=== PATIENT | female | born 1970 | race Caucasian/White ===

== ENCOUNTER → 2016-08-28 | Outpatient (CLI) | payer OTHER ==
--- NOTE | 2016-08-28 10:56 | REPMRS ---
Patient History The patient states she has not had a clinical breast exam in over a year. Patient is postmenopausal. Family history of breast cancer in maternal grandmother at age 50 and breast cancer in paternal grandmother at age 40. Taking estrogen for 12 years. Digital Mammo Screening Bilat: August 28, 2016 - Exam #: [id number] Bilateral CC and MLO view(s) were taken. Technologist: Neyda Lemus Technologist Prior study comparison: August 11, 2013, digital mammo diagnostic bilateral performed at [facility]. August 18, 2011, digital mammo diagnostic bilateral, performed at [facility] ([facility]). FINDINGS: There are scattered fibroglandular densities. There has been no change in the appearance of the mammogram from the prior studies. There is a mild amount of scattered fibroglandular density which is fairly symmetric. There is no interval development of dominant mass, architectural distortion, or clustered microcalcification suggestive of malignancy. ASSESSMENT: BI-RADS/ACR category 1 mammogram. Negative. Recommendation Routine screening mammogram in 1 year (for women over age 40). This mammogram was interpreted with the aid of an FDA-approved computer-aided dectection system. Electronically Signed By: Siva Kent MD 08/28/16 [id number]
== END ==
LOC: M RAD 09:52
PROVIDERS: ATTEND Obstetrics & Gynecology
DX: Z12.31 Encounter for screening mammogram for malignant neoplasm of breast (principal)

== ENCOUNTER → 2017-05-31 | Outpatient (CLI) | payer OTHER ==
[~2017-05-31] MED LIST: PROHANCE 279.3MG/ML 15ML VIAL (A9576) As Ordered ONE
--- NOTE | 2017-06-04 17:24 | REP ---
MRI ABDOMEN WITH AND WITHOUT CONTRAST: TECHNIQUE: Multiple sequences obtained prior to and following the intravenous administration of 12 mL of gadolinium. COMPARISON: Made with prior MRI from [facility] 01/08/2014. The liver demonstrates a cyst in the anterior right lobe which has mildly increased in size compared to the prior study, measuring approximately 1.1 cm in maximum diameter, previous approximately 7 mm. This demonstrates homogenous T2 hyperintense signal and there is no enhancement. There are several other subcentimeter T2 hyperintensities scattered in the right and left lobes likely representing tiny cysts. There is a hyperintense nodule in the medial right lobe of the liver measuring about 8 mm, unchanged since prior exam. This again demonstrates enhancement characteristics compatible with hemangioma. No other no liver lesions are seen. The spleen is normal in size with no intrinsic abnormality. The adrenals and pancreas are normal. There is no pancreatic duct dilatation. There are bilateral renal cysts again seen which are hypointense on T1 and uniformly hyperintense on T2. The largest cyst in the right kidney is in the mid aspect demonstrating no significant enhancement. It measures 1.5 cm in maximum diameter, essentially unchanged. A dominant cyst in the upper pole of the left kidney measures approximately 3.7 cm in maximum diameter, also unchanged. A cyst in the mid-left kidney measures 1.8 cm in maximum diameter, mildly increased in size since prior study when it measured about 1.4 cm. There appear to be other smaller left renal cysts as well, similar to the prior exam. I see no adenopathy. There is no free fluid. There is no biliary dilatation. The gallbladder is not well distended and not well evaluated. IMPRESSION: There are benign lesions again seen in the liver with multiple cysts and a single hemangioma as discussed in detail above. The kidneys again demonstrate bilateral cysts. No suspicious lesions or adenopathy in the abdomen. Signed by Aroldo Omalley MD 06/04/2017 05:54 P
== END ==
LOC: M RAD 13:20
PROVIDERS: ATTEND Family Medicine
DX: K76.9 Liver disease, unspecified (principal)
CPT/HCPCS: 74183; A9576

== ENCOUNTER → 2017-12-31 | Outpatient (REF) | payer OTHER ==
[2017-12-31 13:34] LABS: APPEARANCE, URINE HAZY (CLEAR); BACTERIA, URINE AUTO NEGATIVE (NEGATIVE); BILIRUBIN, URINE AUTO NEGATIVE (NEGATIVE); BLOOD, URINE BLOOD NEGATIVE (NEGATIVE); COLOR, URINE YELLOW (YELLOW); GLUCOSE, URINE (UA) AUTO NEGATIVE (NEGATIVE); KETONE, URINE AUTO NEGATIVE (NEGATIVE); LEUKOCYTE ESTERASE, URINE AUTO NEGATIVE (NEGATIVE); NITRITE, URINE AUTO NEGATIVE (NEGATIVE); PROTEIN, URINE AUTO NEGATIVE (NEGATIVE); RBC, URINE AUTO 1 /HPF (0-3); SPECIFIC GRAVITY URINE AUTO 1.005 (1.002-1.035); SQUAMOUS EPITHELIAL CELL UR AU 10 /HPF (0-6); UROBILINOGEN, URINE AUTO 0.2 mg/dL (0.0-2.0); WBC, URINE AUTO 1 /HPF (0-3)
== END ==
LOC: M SMT 13:13
DX: Q61.00 Congenital renal cyst, unspecified (principal)
CPT/HCPCS: 81001

== ENCOUNTER → 2018-01-05 | Outpatient (CLI) | payer OTHER | LOC: M RAD 18:00 | DX: N28.1 Cyst of kidney, acquired (principal) ==

== ENCOUNTER → 2018-10-13 | Outpatient (REF) | payer OTHER ==
[2018-10-13 17:16] LABS: BLOOD UREA NITROGEN 10 MG/DL (7-18); CALCIUM LEVEL 8.6 MG/DL (8.5-10.1); CARBON DIOXIDE LEVEL 28 MEQ/L (21-32); CHLORIDE LEVEL 105 MEQ/L (98-107); CREATININE FOR GFR 0.76 MG/DL (0.55-1.30); GLOMERULAR FILTRATION RATE > 60.0 (>58); GLUCOSE, FASTING 82 MG/DL (70-100); POTASSIUM SERUM 4.8 MEQ/L (3.5-5.1); SODIUM LEVEL 140 MEQ/L (136-145)
[2018-10-13 17:32] LABS: BASO # 0.1 10^3/uL (0.0-0.2); BASO % 0.5 % (0.0-1.0); EOS # 0.3 10^3/uL (0.0-0.50); EOS % 1.8 % (0.0-3.0); HEMATOCRIT 41.5 % (36.0-47.0); HEMOGLOBIN 13.9 g/dl (12.0-15.5); LYMPH # 2.1 10^3/uL (1.5-4.5); MEAN CORPUSCULAR HEMOGLOBIN 31.2 pg (27.0-33.0); MEAN CORPUSCULAR HGB CONC 33.5 g/dl (32.0-36.5); MONO # 0.9 10^3/uL (0.0-0.8); MONO % 6.7 % (0.0-5.0); NEUTROPHILS # 10.5 10^3/uL (1.8-7.7); NEUTROPHILS % 75.6 % (36.0-66.0); PLATELET COUNT, AUTOMATED 283 10^3/uL (150-450); RED BLOOD COUNT 4.46 10^6/uL (4.00-5.40); WHITE BLOOD COUNT 13.9 10^3/uL (4.0-10.0)
== END ==
LOC: M SFHCCLAY 10:48
PROVIDERS: ATTEND Nurse Practitioner Family
DX: J03.90 Acute tonsillitis, unspecified (principal)

== ENCOUNTER 2019-02-06 18:52 | Inpatient (IN) | payer OTHER ==
[~2019-02-06] VITALS: Ht 160 cm; Wt 58.7 kg
[2019-02-06 19:36] LABS: BASO # 0.1 10^3/uL (0.0-0.2); BASO % 0.5 % (0.0-1.0); EOS # 0.3 10^3/uL (0.0-0.50); EOS % 2.1 % (0.0-3.0); HEMATOCRIT 44.2 % (36.0-47.0); HEMOGLOBIN 14.6 g/dl (12.0-15.5); LYMPH # 2.1 10^3/uL (1.5-4.5); LYMPH % 16.7 % (24.0-44.0); MEAN CORPUSCULAR VOLUME 93.8 fl (80.0-96.0); MONO # 0.7 10^3/uL (0.0-0.8); MONO % 5.4 % (0.0-5.0); NEUTROPHILS # 9.4 10^3/uL (1.8-7.7); PLATELET COUNT, AUTOMATED 279 10^3/uL (150-450); RED BLOOD COUNT 4.71 10^6/uL (4.00-5.40); WHITE BLOOD COUNT 12.6 10^3/uL (4.0-10.0)
[2019-02-06 19:53] LABS: HCG, SERUM QUALITATIVE NEGATIVE (NEGATIVE)
[2019-02-06 20:00] LABS: ALBUMIN 3.8 GM/DL (3.2-5.2); ALT/SGPT 21 U/L (12-78); BILIRUBIN,DIRECT 0.1 MG/DL (0.0-0.2); BILIRUBIN,TOTAL 0.4 MG/DL (0.2-1.0); BLOOD UREA NITROGEN 9 MG/DL (7-18); CALCIUM LEVEL 9.1 MG/DL (8.5-10.1); CARBON DIOXIDE LEVEL 29 MEQ/L (21-32); CHLORIDE LEVEL 104 MEQ/L (98-107); CREATININE FOR GFR 0.85 MG/DL (0.55-1.30); GLOMERULAR FILTRATION RATE > 60.0 (>58); GLUCOSE, FASTING 92 MG/DL (70-100); LIPASE 153 U/L (73-393); POTASSIUM SERUM 4.1 MEQ/L (3.5-5.1); SODIUM LEVEL 138 MEQ/L (136-145); TOTAL PROTEIN 7.2 GM/DL (6.4-8.2)
[2019-02-06] MEDS ORDERED: KETOROLAC 30 MG/ML VIAL (J1885) IV ONE (20:45)
[2019-02-06] MEDS ORDERED: ONDANSETRON 4MG/2ML VIAL (J2405) IV ONE (21:00)
--- NOTE | 2019-02-06 22:42 | REPVR ---
EXAM: CT Abdomen and Pelvis Without Contrast EXAM DATE/TIME: 02/06/2019 9:28 PM CLINICAL HISTORY: 48 years old, female; Abdominal pain; Generalized; Prior surgery; Additional info: Elevated wbc, hematuria, positive cali's, abd pain TECHNIQUE: Imaging protocol: Axial computed tomography images of the abdomen and pelvis without contrast. Coronal and sagittal reformatted images were created and reviewed. Radiation optimization: All CT scans at this facility use at least one of these dose optimization techniques: automated exposure control; mA and/or kV adjustment per patient size (includes targeted exams where dose is matched to clinical indication); or iterative reconstruction. COMPARISON: RENAL US 01/05/2018 5:23 PM FINDINGS: Liver: Previously described multiple small cysts in the liver are not well identified on today's exam. Indeterminate lesions in the right of the liver, largest one is measuring approximately 14 mm. Gallbladder and bile ducts: Normal. No calcified stones. No ductal dilation. Pancreas: Normal. No ductal dilation. Spleen: Normal. No splenomegaly. Adrenals: Normal. No mass. Kidneys and ureters: Complex he or on the left kidney with peripheral calcification in measuring approximately 3.7 x 3.3 0.5 cm. Multiple nonobstructing stones in the left kidney measuring up to 3 mm. Scarring in the midpole of the left kidney. Small cysts in the lower pole of the left kidney with minimal peripheral calcification measuring 13 mm. Another lesion in the lower pole of the left kidney measuring 14.4 x 15.2 mm with mild peripheral calcification. Multiple cystic structures are seen in the right kidney measuring up to 17 mm. Stomach and bowel: There is thickening of the proximal transverse colon at the hepatic flexure which appears to be applecore lession causing obstruction and dilatation of the cecum and ascending colon with large fecal loading. Haziness surrounding the proximal process colon with multiple small lymph nodes. Findings are concerning for neoplastic process, possible superimposed infection, further evaluation with colonoscopy is recommended. Small bowel is unremarkable. Appendix: No evidence of appendicitis. Intraperitoneal space: Normal. No free air. No significant fluid collection. Vasculature: Normal. No abdominal aortic aneurysm. Lymph nodes: See Stomach And Bowel Finding. Bladder: Unremarkable as visualized. Reproductive: Status post hysterectomy. Bones/joints: Demineralization of the bones. No lytic or sclerotic lesion. Soft tissues: Unremarkable. IMPRESSION: There is thickening of the proximal transverse colon at the hepatic flexure which appears to be applecore lession causing obstruction and dilatation of the cecum and ascending colon with large fecal loading. Haziness surrounding the proximal process colon with multiple small lymph nodes. Findings are concerning for neoplastic process, possible superimposed infection, further evaluation with colonoscopy is recommended. Small bowel is unremarkable. Previously described multiple small cysts in the liver are not well identified on today's exam. Indeterminate lesions in the right of the liver, largest one is measuring approximately 14 mm. followup with hepatic protocol MR examination is recommended to rule out metastatic disease. Complex cysts in bilateral kidneys. COMMENT: Consistent with the [employer]'s Incidental Findings Committee Report (J Am Saran Radiol 2010): Unless the patient's specific circumstances suggest otherwise, any liver lesion 0.5 cm or less, any cystic kidney lesion less than 1.0 cm, and/or any adrenal lesion 1.0 cm or less not otherwise characterized in this report as possessing suspicious or indeterminate imaging features is/are highly likely to be benign and do not require follow-up imaging or biopsy. Electronically signed by: Bryanna Kay On 02/06/2019 22:42:14 PM
[2019-02-06] MEDS ORDERED: MORPHINE 2 MG/ML 1ML SYRINGE (J2270) IV ONE (23:00)
[2019-02-06] MEDS ORDERED: NS 1,000 ML IV ONE (23:15)
[2019-02-07] MEDS ORDERED: MORPHINE 4 MG/ML 1ML VIAL/SYRINGE (J2270) IV PRN (00:15)
[2019-02-07] MEDS ORDERED: MOM 30ML SUSPENSION UDC PO ONE ×2 (00:15→03:00)
--- NOTE | 2019-02-07 00:33 | HPEPDOC ---
General Date of Admission 02/07/2019 Date of Service: Feb 07, 2019 Attending Physician: ROSALINDA JOSE MD Chief Complaint The patient is a 48-year-old female admitted with a reason for visit of Jose Schreiber in. History of Present Illness Patient is a 48-year-old female, primary medical history significant for liver hemangioma, renal cysts, nicotine dependence, presenting to the emergency room on account of abdominal pain. Onset of symptoms was this morning. Initially pain felt like gas and so patient tried to walk it off, and also took some Gas-X and enema without relief. Given that she used the bathroom and had a bowel movement this morning patient felt like she still had a large amount of stool trapped in her abdomen. On assessment in emergency room, CT scan of abdomen and pelvis was completed without contrast and showed thickening of proximal transverse colon at the he patic flexure which looked like an apple core lesion causing obstruction and dilatation of cecum and ascending colon with large fecal loading. There was haziness surrounding the proximal process with multiple small lymph nodes. Findings were concerning for neoplastic process with possible superimposed infection. Further recommendation evaluation with colonoscopy was recommended. A call was placed to general surgery who recommended placing patient on a clear liquid diet, and consulting their team so they could see patient in consult. At time of assessment pain was still present. Described as spasm pain, intermittent like a wave of excruciating pain. She denied chills, fever. She did have some nausea with no vomiting Home Medications Scheduled PRN Ibuprofen (Ibuprofen) 800 Mg Tablet, 800 MG PO Q6H PRN for PAIN, (Reported) Triamcinolone Acet (Triamcinolone Acetonide 0.1% Crm) 80 Gm Cream..g., 1 DOSE TOP BID PRN for HIVES/BLISTERS, (Reported) USES ON HANDS/ARMS NEEDED WHEN HIVES/BLISTERS APPEAR FROM TOO MUCH SUNLIGHT Allergies Coded Allergies: SEAFOOD (Verified Allergy, Unknown, 02/06/19) latex (Verified Allergy, Unknown, 02/06/19) Past Medical History Medical History Kidney stones. Renal cysts. Nicotine dependence Liver hemangioma Surgical History Appendectomy Hysterectomy Family History Father: Prostate cancer Mother: Hypertension, hyperlipidemia Social History Smokes half a pack of cigarettes a day, occasional alcohol intake, denies polysubstance abuse A-FIB/CHADSVASC A-FIB History Current/History of A-Fib/PAF?: No Current PO Anticoag Therapy: No Review of Systems Other systems A 10 point pertinent review of systems was completed, negative except as stated in the history of presenting illness. Physical Examination Other physical findings GENERAL: NAD SKIN : Warm, dry intact HEENT: Atraumatic, normocephalic, PERRL, moist mucous membrane CARDIOVASCULAR: Regular rate and rhythm, S1S2, no JVD, no edema, distal pulses + and palpable RESP: CTAB, no accessory muscle use noted ABDOMEN: BS+ mildly distended, +tender MS: no joint deformities NEURO: Alert and oriented x 3, CN2-12 grossly intact PSYCH: no anxiety or agitation, appropriate mood and affect. Vital Signs Vital Signs Date Time Temp Pulse Resp B/P (MAP) Pulse Ox O2 Delivery O2 Flow Rate FiO2 02/06/19 23:14 16 96 02/06/19 22:07 97.5 77 119/76 (90) Room Air Laboratory Data Labs 24H Laboratory Tests 2 02/06/19 19:28: Immature Granulocyte % (Auto) 0.3, White Blood Count 12.6H, Red Blood Count 4.71, Hemoglobin 14.6, Hematocrit 44.2, Mean Corpuscular Volume 93.8, Mean Corpuscular Hemoglobin 31.0, Mean Corpuscular Hemoglobin Concent 33.0, Red Cell Distribution Width 12.3, Platelet Count 279, Neutrophils (%) (Auto) 75.0H, Lymphocytes (%) (Auto) 16.7L, Monocytes (%) (Auto) 5.4H, Eosinophils (%) (Auto) 2.1, Basophils (%) (Auto) 0.5, Neutrophils # (Auto) 9.4H, Lymphocytes # (Auto) 2 .1, Monocytes # (Auto) 0.7, Eosinophils # (Auto) 0.3, Basophils # (Auto) 0.1, Nucleated Red Blood Cells % (auto) 0.0, Anion Gap 5L, Glomerular Filtration Rate > 60.0, Calcium Level 9.1, Aspartate Amino Transf (AST/SGOT) 23, Alanine Aminotransferase (ALT/SGPT) 21, Alkaline Phosphatase 73, Total Bilirubin 0.4, Direct Bilirubin 0.1, Total Protein 7.2, Albumin 3.8, Albumin/Globulin Ratio 1.12, Lipase 153, Human Chorionic Gonadotropin, Qual NEGATIVE 02/06/19 19:32: Urine Color YELLOW, Urine Appearance CLEAR, Urine pH 6.0, Urine Specific [place] 1.016, Urine Protein NEGATIVE, Urine Glucose (UA) NEGATIVE, Urine Ketones TRACEH, Urine Blood 1+H, Urine Nitrite NEGATIVE, Urine Bilirubin NEGATIVE, Urine Urobilinogen 0.2, Urine Leukocyte Esterase NEGATIVE, Urine WBC (Auto) 0, Urine RBC (Auto) 8H, Urine Hyaline Casts (Auto) 0, Urine Bacteria (Auto) 1+H, Urine Squamous Epithelial Cells 2, Urine Mucus (Auto) SMALL, Urine Sperm (Auto) CBC/BMP Laboratory Tests 02/06/19 19:28 Red Blood Count 4.71, Mean Corpuscular Volume 93.8, Mean Corpuscular Hemoglobin 31.0, Mean Corpuscular Hemoglobin Concent 33.0, Red Cell Distribution Width 12.3, Neutrophils (%) (Auto) 75.0 H, Lymphocytes (%) (Auto) 16.7 L, Monocytes (%) (Auto) 5.4 H, Eosinophils (%) (Auto) 2.1, Basophils (%) (Auto) 0.5, Neutrophils # (Auto) 9.4 H, Lymphocytes # (Auto) 2.1, Monocytes # (Auto) 0.7, Eosinophils # (Auto) 0.3, Basophils # (Auto) 0.1 Assessment/Plan Colonic Obstruction -with possible infectious process, large fecal loading, applecore lesion concerning for possible neoplastic process -General surgical team has been consulted and evaluation and input -. Keep patient nothing by mouth at this time with normal saline fluids -CT findings discussed with patient Liver hemangioma -concerning CT abnormal findings for possible neoplastic process -General surgery consulted, will need to be called in the am Nicotine dependence -Patient has been counselled about tobacco use DVT prophylaxis -Lovenox daily Patient seen and examined at this time, this is a 48-year-old female with a one day history of right upper quadrant abdominal pain: Acute in nature. She tells me that she has not had this before CT scan finding reveals a palpable cord lesion. As well as liver lesions. She is known about her liver hemangiomas for quite some time. She does not provide a history consistent with occult malignancy. General surgery consult placed will provide her with a clear liquid diet milk of magnesia for possible constipation I'll also add Senokot S. Should this fail to improve her symptoms could consider inpatient colonoscopy for further evaluation. Patient admitted to [facility] / VTE VTE Prophylaxis Ordered?: Yes JARROD EASTMAN Feb 07, 2019 00:33 ROSALINDA JOSE MD Feb 07, 2019 03:44
[2019-02-07] MEDS ORDERED: TRIA1CR80 TOP (00:43)
[2019-02-07] MEDS ORDERED: IBUP80TA PO (00:43)
[2019-02-07] MEDS ORDERED: ERTAPENEM SODIUM 1 GM in NS MINI-BAG PLUS 50 ML IV ONE (00:45)
[2019-02-07] MEDS: NS 1,000 ML IV SCH ×3 (01:10→18:47)
[2019-02-07 02:04] VITALS: BP 120/70
[2019-02-07] MEDS: MORPHINE 4 MG/ML 1ML VIAL/SYRINGE (J2270) IV PRN ×8 (02:57→22:11)
[2019-02-07 06:00] VITALS: BP 95/58
[2019-02-07 06:07] LABS: HEMATOCRIT 39.7 % (36.0-47.0); HEMOGLOBIN 12.9 g/dl (12.0-15.5); MEAN CORPUSCULAR HEMOGLOBIN 30.7 pg (27.0-33.0); MEAN CORPUSCULAR HGB CONC 32.5 g/dl (32.0-36.5); MEAN CORPUSCULAR VOLUME 94.5 fl (80.0-96.0); PLATELET COUNT, AUTOMATED 236 10^3/uL (150-450); WHITE BLOOD COUNT 9.5 10^3/uL (4.0-10.0)
[2019-02-07 06:43] LABS: BLOOD UREA NITROGEN 12 MG/DL (7-18); CALCIUM LEVEL 7.5 MG/DL (8.5-10.1); CARBON DIOXIDE LEVEL 27 MEQ/L (21-32); CHLORIDE LEVEL 108 MEQ/L (98-107); CREATININE FOR GFR 0.72 MG/DL (0.55-1.30); GLOMERULAR FILTRATION RATE > 60.0 (>58); GLUCOSE, FASTING 86 MG/DL (70-100); POTASSIUM SERUM 3.7 MEQ/L (3.5-5.1); SODIUM LEVEL 141 MEQ/L (136-145)
[2019-02-07] MEDS ORDERED: MAGNESIUM CITRATE 300 ML BTL PO ONE (08:30)
[2019-02-07] MEDS: SENOKOT S TAB PO SCH ×2 (08:37→21:00)
[2019-02-07] MEDS: ENOXAPARIN 40 MG/0.4 ML SYRINGE (J1650) SC SCH (08:37)
[2019-02-07] MEDS: MOM 30ML SUSPENSION UDC PO SCH ×2 (08:37→21:00)
[2019-02-07] MEDS: ONDANSETRON 4MG/2ML VIAL (J2405) IV PRN ×4 (08:44→23:11)
[2019-02-07] MEDS ORDERED: SENOKOT S TAB PO SCH (09:00)
[2019-02-07 10:00] VITALS: BP 110/70
--- NOTE | 2019-02-07 11:17 | IPNPDOC ---
Subjective Date Seen The patient was seen on 02/07/19. Subjective Chief Complaint/HPI No BM yet. No furterh vomitng. Pain still present but fairly well controlled on Morphine Constitutional: Denies: Chills, Fever Pulmonary: Denies: Dyspnea, Cough Cardiovascular: Denies: Chest Pain, Palpitations Gastrointestinal: Reports: Nausea, Vomiting, Abdominal Pain, Constipation; Denies: Diarrhea Objective Physical Examination General Exam: Positive: Alert, No Acute Distress Chest Exam: Positive: Clear to auscultation, Normal air movement Heart Exam: Positive: Rate Normal, Regular Rhythm Abdomen Exam: Positive: BS Hyperactive, Tenderness (diffusely) Assessment /Plan Assessment Patient seen in the afternoon. She had further abdominal discomfort, though she did move her bowels once today. NG tube had been placed and was about to be placed on suction. She had some nausea, improved on medication, and a sore throat from NG tube that I ordered Chloraseptic spray for. Appreciate surgery's input. -- CDT Problems (1) Colonic obstruction Status: Acute Problem Text: Dr. Silver has seen her in consultation Blow bowel prep ordered with hope to perform colonoscopy tomorrow to evaluate ?apple-core lesion in colon Cont Morphine for pain zofran prn IVF (2) Liver lesion Status: Acute Problem Text: will need further wkup depending on results of colonoscopy (3) Abdominal pain Plan/VTE VTE Prophylaxis Ordered?: Yes (Lovenox) VS, I&O, 24H, Fishbone Vital Signs/I&O Vital Signs Date Time Temp Pulse Resp B/P (MAP) Pulse Ox O2 Delivery O2 Flow Rate FiO2 02/07/19 10:37 16 02/07/19 06:00 98.1 67 95/58 (70) 95 02/07/19 01:45 Room Air I&O- Last 24 Hours up to 6 AM 02/07/19 06:00 Intake Total 500 ml Output Total 150 ml Balance 350 ml Laboratory Data 24H LABS Laboratory Tests 2 02/06/19 19:28: Immature Granulocyte % (Auto) 0.3, White Blood Count 12.6H, Red Blood Count 4.71, Hemoglobin 14.6, Hematocrit 44.2, Mean Corpuscular Volume 93.8, Mean Corpuscular Hemoglobin 31.0, Mean Corpuscular Hemoglobin Concent 33.0, Red Cell Distribution Width 12.3, Platelet Count 279, Neutrophils (%) (Auto) 75.0H, Lymphocytes (%) (Auto) 16.7L, Monocytes (%) (Auto) 5.4H, Eosinophils (%) (Auto) 2.1, Basophils (%) (Auto) 0.5, Neutrophils # (Auto) 9.4H, Lymphocytes # (Auto) 2.1, Monocytes # (Auto) 0.7, Eosinophils # (Auto) 0.3, Basophils # (Auto) 0.1, Nucleated Red Blood Cells % (auto) 0.0, Anion Gap 5L, Glomerular Filtration Rate > 60.0, Calcium Level 9.1, Aspartate Amino Transf (AST/SGOT) 23, Alanine Aminotransferase (ALT/SGPT) 21, Alkaline Phosphatase 73, Total Bilirubin 0.4, Direct Bilirubin 0.1, Total Protein 7.2, Albumin 3.8, Albumin/Globulin Ratio 1.12, Lipase 153, Human Chorionic Gonadotropin, Qual NEGATIVE 02/06/19 19:32: Urine Color YELLOW, Urine Appearance CLEAR, Urine pH 6.0, Urine Specific [place] 1.016, Urine Protein NEGATIVE, Urine Glucose (UA) NEGATIVE, Urine Ketones TRACEH, Urine Blood 1+H, Urine Nitrite NEGATIVE, Urine Bilirubin NEGATIVE, Urine Urobilinogen 0.2, Urine Leukocyte Esterase NEGATIVE, Urine WBC (Auto) 0, Urine RBC (Auto) 8H, Urine Hyaline Casts (Auto) 0, Urine Bacteria (Auto) 1+H, Urine Squamous Epithelial Cells 2, Urine Mucus (Auto) SMALL, Urine Sperm (Auto) 02/07/19 05:31: Nucleated Red Blood Cells % (auto) 0.0, Anion Gap 6L, Glomerular Filtration Rate > 60.0, Calcium Level 7.5#L, Blood Urea Nitrogen 12, Creatinine 0.72, Sodium Level 141, Potassium Level 3.7, Chloride Level 108H, Carbon Dioxide Level 27 CBC/BMP Laboratory Tests 02/06/19 19:28 Red Blood Count 4.71, Mean Corpuscular Volume 93.8, Mean Corpuscular Hemoglobin 31.0, Mean Corpuscular Hemoglobin Concent 33.0, Red Cell Distribution Width 12.3, Neutrophils (%) (Auto) 75.0 H, Lymphocytes (%) (Auto) 16.7 L, Monocytes (%) (Auto) 5.4 H, Eosinophils (%) (Auto) 2.1, Basophils (%) (Auto) 0.5, Neutrophils # (Auto) 9.4 H, Lymphocytes # (Auto) 2.1, Monocytes # (Auto) 0.7, Eosinophils # (Auto) 0.3, Basophils # (Auto) 0.1 02/07/19 05:31 Red Blood Count 4.20, Mean Corpuscular Volume 94.5, Mean Corpuscular Hemoglobin 30.7, Mean Corpuscular Hemoglobin Concent 32.5, Red Cell Distribution Width 12.3, Calcium Level 7.5 NILAM CURTIS PA-C Feb 07, 2019 11:17 NORBERT RODRÍGUEZ DO Feb 07, 2019 23:53
[2019-02-07] MEDS: SIMETHICONE 80 MG CHEW TAB PO PRN (13:58)
[2019-02-07] MEDS: BISACODYL 10 MG SUPP PR PRN (13:58)
[2019-02-07 14:00] VITALS: BP 131/79
--- NOTE | 2019-02-07 14:49 | CR ---
DATE OF CONSULTATION: 02/07/2019 REASON FOR CONSULTATION: Abdominal pain. HISTORY OF PRESENT ILLNESS: Patient is a 48-year-old female who presented to the emergency room (ER) with increasing abdominal pains and bloating. The pain started yesterday morning and got progressive worse throughout the day with some nausea and abdominal distention. She came in to the emergency room for evaluation and has a slight elevated white count and CT showing proximal transverse colon narrowing causing some obstruction of stool with distension of her cecum and ascending colon. She denies having any symptoms like this in the past. She has had normal bowel movements at least once a day. She has had about a 20 pound weight loss over the past 2 months along with some night sweats, but no other significant complaints. No blood in her stool. No changes in bowel movements. No other abdominal pains prior to this. No abdominal distension prior to this. No family history of colon cancer or diseases and no prior colonoscopy. Today she is still slightly distended and still having significant pain. Her white count is back to normal. She as been given some suppositories and Milk of Magnesia and has not had any bowel movements since admission. PAST MEDICAL HISTORY: Kidney stones, renal cysts, tobacco abuse, liver hemangioma. PAST SURGICAL HISTORY: Appendectomy, hysterectomy, C section. FAMILY HISTORY: Noncontributory. ALLERGIES: SEAFOOD and LATEX. HOME MEDICATIONS: Please see medical record. SOCIAL HISTORY: Smokes half a pack a day. Occasional alcohol. No drug abuse. REVIEW OF SYSTEMS: Pertinent positives and negatives as stated in the history of present illness. PHYSICAL EXAMINATION: General: Alert and oriented times three. In no acute distress. Vital signs: Temperature 97.8, pulse 69, respiration 18, blood pressure 110/70, pulse ox 94% on room air. HEENT: Pupils equal, round, and reactive to light and accommodation. Heart: S1, S2, regular rate and rhythm. Lungs: Clear to auscultation bilaterally. Abdomen: Soft, distended, slight tenderness diffusely mainly in the right thigh. No rebounding or rigidity. Extremities: No clubbing, cyanosis or edema. LABS: White count 12.6 on admission, down to 9.5, hemoglobin 12.9, platelets 236, potassium 3.7, creatinine 0.72. IMAGING: CT abdomen and pelvis was obtained and shows thickening of the proximal transverse colon of the hepatic flexure with an apple core lesion causing obscuration and dilatation of the cecum and ascending colon with large fecal loading. There is haziness surrounding the proximal colon with multiple small lymph nodes concerning for a neoplastic process, possibly a superimposed infection on top of that, colonoscopy is recommended. ASSESSMENT AND PLAN: Patient is a 48-year-old female with an obstructing lesion in the proximal transverse colon concerning for neoplastic process slightly with some surrounding inflammation and infection. Recommendation at this time is to proceed with gentle bowel prep with attempts to not perforate the cecum. As long as she can tolerate a gentle bowel prep, we will slowly increase the prep until she is prepped completely and then plan for a colonoscopy. If colonoscopy is successful and I am able to find a lesion and pass through it then we will discharge her home on a liquid diet and plan for an elective outpatient surgery within the next week, however, if the lesion is significantly obstructing then she will likely need surgery during this admission. Thank you for this consult.
[2019-02-07] MEDS: METOCLOPRAMIDE INJ 10MG/2ML VIAL (J2765) IV SCH ×2 (15:10→22:10)
--- NOTE | 2019-02-07 16:03 | REP ---
Clinical: Verify nasogastric tube placement . Comparison: None . Findings: Nasogastric tube identified extending into the left upper quadrant in satisfactory position. The mediastinum and cardiac silhouette are stable and within normal limits for portable technique. The lung bernardo are clear without acute consolidation, effusion, or pneumothorax. Skeletal structures are intact. Impression: No acute cardiopulmonary process appreciated. Nasogastric tube in satisfactory position. Electronically Signed by Cesar Davalos MD 02/07/2019 03:55 P
[2019-02-07] MEDS ORDERED: CHLORASEPTIC SPRAY MT PRN (16:45)
[2019-02-07 18:00] VITALS: BP 136/75
[2019-02-07 22:00] VITALS: BP 135/74
[2019-02-08] MEDS: MORPHINE 4 MG/ML 1ML VIAL/SYRINGE (J2270) IV PRN ×9 (01:29→23:48)
[2019-02-08] MEDS: BISACODYL 10 MG SUPP PR PRN ×2 (01:29→03:12)
[2019-02-08 02:00] VITALS: BP 125/72
[2019-02-08] MEDS: METOCLOPRAMIDE INJ 10MG/2ML VIAL (J2765) IV SCH ×4 (03:12→20:24)
[2019-02-08] MEDS: NS 1,000 ML IV SCH ×3 (04:38→23:47)
[2019-02-08 06:00] VITALS: BP 114/73
[2019-02-08 06:11] LABS: HEMOGLOBIN 12.8 g/dl (12.0-15.5); MEAN CORPUSCULAR HEMOGLOBIN 30.6 pg (27.0-33.0); MEAN CORPUSCULAR VOLUME 95.7 fl (80.0-96.0); PLATELET COUNT, AUTOMATED 239 10^3/uL (150-450); RED BLOOD COUNT 4.18 10^6/uL (4.00-5.40); WHITE BLOOD COUNT 10.1 10^3/uL (4.0-10.0)
[2019-02-08 06:40] LABS: ALBUMIN 2.9 GM/DL (3.2-5.2); ALT/SGPT 16 U/L (12-78); BILIRUBIN,TOTAL 0.4 MG/DL (0.2-1.0); BLOOD UREA NITROGEN 14 MG/DL (7-18); CALCIUM LEVEL 6.9 MG/DL (8.5-10.1); CARBON DIOXIDE LEVEL 22 MEQ/L (21-32); CHLORIDE LEVEL 109 MEQ/L (98-107); CREATININE FOR GFR 0.68 MG/DL (0.55-1.30); GLOMERULAR FILTRATION RATE > 60.0 (>58); GLUCOSE, FASTING 78 MG/DL (70-100); POTASSIUM SERUM 3.9 MEQ/L (3.5-5.1); SODIUM LEVEL 142 MEQ/L (136-145); TOTAL PROTEIN 6.1 GM/DL (6.4-8.2)
[2019-02-08] MEDS: ONDANSETRON 4MG/2ML VIAL (J2405) IV PRN ×4 (07:32→17:53)
[2019-02-08] MEDS: ENOXAPARIN 40 MG/0.4 ML SYRINGE (J1650) SC SCH (09:42)
[2019-02-08] MEDS: MOM 30ML SUSPENSION UDC PO SCH ×2 (09:42→20:24)
[2019-02-08] MEDS: SENOKOT S TAB PO SCH ×2 (09:42→20:24)
[2019-02-08 10:00] VITALS: BP 119/68
--- NOTE | 2019-02-08 11:11 | IPNPDOC ---
Text Note Date of Service The patient was seen on 02/08/19. NOTE No acute events overnight. She had some dry heaves and minimal NG output. She did only have one BM yesterday. Abd distention and pain are about the same. VSSAF NAD abd - soft, distended, mild tenderness right side, no rebound or guarding labs - below A) 48y/o female with large bowel obstruction P) clamp NGT as tolerated clq diet laxatives still attempting to prep her for a colonoscopy for later in the week. If this is unsuccessful, then she may require a rt hemicolectomy with end ileostomy. Mikael Silver DO VS,[place]bin[place], I+O VS, Fishbone, I+O Laboratory Tests 02/08/19 05:36 Red Blood Count 4.18, Mean Corpuscular Volume 95.7, Mean Corpuscular Hemoglobin 30.6, Mean Corpuscular Hemoglobin Concent 32.0, Red Cell Distribution Width 12.4, Calcium Level 6.9 L, Aspartate Amino Transf (AST/SGOT) 16, Alanine Aminotransferase (ALT/SGPT) 16, Alkaline Phosphatase 70, Total Bilirubin 0.4, Total Protein 6.1 L, Albumin 2.9 #L Vital Signs Date Time Temp Pulse Resp B/P (MAP) Pulse Ox O2 Delivery O2 Flow Rate FiO2 02/08/19 10:00 97.9 82 17 119/68 (85) 98 02/07/19 01:45 Room Air I&O- Last 24 Hours up to 6 AM 02/08/19 06:00 Intake Total 2000 ml Output Total 1225 ml Balance 775 ml YAIR SILVER DO Feb 08, 2019 11:11
[2019-02-08] MEDS ORDERED: MAGNESIUM CITRATE 300 ML BTL PO ONE ×2 (11:15)
[2019-02-08 14:00] VITALS: BP 148/75
[2019-02-08 18:00] VITALS: BP 120/73
[2019-02-08 22:00] VITALS: BP 111/68
[2019-02-09] VITALS (10 sets, daily range): BP systolic 106–142; BP diastolic 60–85
--- NOTE | 2019-02-09 02:15 | IPNPDOC ---
Subjective Date Seen The patient was seen on 02/08/19. Subjective Chief Complaint/HPI bowel obstruction Events since last encounter Before I saw her this afternoon, patient began to have some liquid stool. Plan to continue bowel prep, but not aggressively, with hope of obtaining sufficient prep for a colonoscopy. She notes persistent abdominal discomfort, though improved a bit as her bowels started to move. Abdomen distended. Constitutional: Reports: Weight Loss; Denies: Chills, Fever Skin: Denies: Rash Pulmonary: Denies: Dyspnea, Cough Cardiovascular: Denies: Chest Pain, Palpitations Gastrointestinal: Reports: Nausea, Abdominal Pain, Diarrhea; Denies: Vomiting Musculoskeletal: Denies: Joint Pain Psych: Reports: Anxiety Objective Physical Examination General Exam: Positive: Alert, No Acute Distress Chest Exam: Positive: Clear to auscultation, Normal air movement Heart Exam: Positive: Rate Normal, Regular Rhythm Abdomen Exam: Positive: BS Hypoactive, Tenderness (throughout, though moreso R side of abdomen), Other (somewhat distended) Psych Exam: Positive: Anxiety, Memory Intact; Negative: Mood NL Assessment /Plan Problems (1) Colonic obstruction Status: Acute Problem Text: 02/08 -- suspect insufficient prep so far for colonoscopy. Discussed with patient, and she feels medication more easily tolerable if de livered through NG tube. Dr. Silver has seen her in consultation Blow bowel prep ordered with hope to perform colonoscopy tomorrow to evaluate ?apple-core lesion in colon Cont Morphine for pain zofran prn IVF (2) Liver lesion Status: Chronic Problem Text: will need further wkup depending on results of colonoscopy (3) Abdominal pain Status: Chronic Problem Text: She admits to [facility] of this on and off since about August. Now worse, with prominent bloating. Plan/VTE VTE Prophylaxis Ordered?: Yes (Lovenox) VS, I&O, 24H, Fishbone Vital Signs/I&O Vital Signs Date Time Temp Pulse Resp B/P (MAP) Pulse Ox O2 Delivery O2 Flow Rate FiO2 02/08/19 23:58 16 02/08/19 22:00 98.0 84 111/68 (82) 95 02/07/19 01:45 Room Air I&O- Last 24 Hours up to 6 AM 02/09/19 06:00 Intake Total 1800 ml Output Total 1525 ml Balance 275 ml Laboratory Data 24H LABS Laboratory Tests 2 02/08/19 05:36: Nucleated Red Blood Cells % (auto) 0.0, Anion Gap 11, Glomerular Filtration Rate > 60.0, Blood Urea Nitrogen 14, Creatinine 0.68, Sodium Level 142, Potassium Level 3.9, Chloride Level 109H, Carbon Dioxide Level 22, Calcium Level 6.9L, Aspartate Amino Transf (AST/SGOT) 16, Alanine Aminotransferase (ALT/SGPT) 16, Alkaline Phosphatase 70, Total Bilirubin 0.4, Total Protein 6.1L, Albumin 2.9#L, Albumin/Globulin Ratio 0.91L CBC/BMP Laboratory Tests 02/08/19 05:36 Red Blood Count 4.18, Mean Corpuscular Volume 95.7, Mean Corpuscular Hemoglobin 30.6, Mean Corpuscular Hemoglobin Concent 32.0, Red Cell Distribution Width 12.4, Calcium Level 6.9 L, Aspartate Amino Transf (AST/SGOT) 16, Alanine Aminotransferase (ALT/SGPT) 16, Alkaline Phosphatase 70, Total Bilirubin 0.4, Total Protein 6.1 L, Albumin 2.9 #L NORBERT RODRÍGUEZ DO Feb 09, 2019 02:15
[2019-02-09] MEDS: METOCLOPRAMIDE INJ 10MG/2ML VIAL (J2765) IV SCH ×4 (03:55→20:35)
[2019-02-09] MEDS: MORPHINE 4 MG/ML 1ML VIAL/SYRINGE (J2270) IV PRN ×8 (04:01→23:06)
[2019-02-09] MEDS: ONDANSETRON 4MG/2ML VIAL (J2405) IV PRN (06:30)
[2019-02-09] MEDS ORDERED: LIDOCAINE 2% INJ 100 MG/5 ML SDV (FOR ANES.) As Ordered ONE (07:32)
[2019-02-09] MEDS ORDERED: PROPOFOL 200 MG/20 ML VIAL As Ordered ONE (07:32)
--- NOTE | 2019-02-09 08:20 | IPNPDOC ---
Text Note Date of Service The patient was seen on 02/09/19. NOTE No acute events overnight. She has had multiple bowel movements that are starting to clear out. Her abdomen is much softer and the pain is almost completely gone. VSSAF NAD abd - soft, less distended, mild tenderness right side, no rebound or guarding labs - below A) 48y/o female with large bowel partial obstruction likely due to mass P) clamp NGT NPO colonoscopy this am will plan on rt hemicolectomy either inpatient or outpatient depending on the scope results. Mikael Silver DO VS,Marycruz, I+O VS, Marycruz, I+O Vital Signs Date Time Temp Pulse Resp B/P (MAP) Pulse Ox O2 Delivery O2 Flow Rate FiO2 02/09/19 06:40 16 02/09/19 06:00 97.5 93 111/74 (86) 96 02/07/19 01:45 Room Air I&O- Last 24 Hours up to 6 AM 02/09/19 06:00 Intake Total 2700 ml Output Total 1825 ml Balance 875 ml YAIR SILVER DO Feb 09, 2019 08:20
[2019-02-09] MEDS ORDERED: ONDANSETRON 4MG/2ML VIAL (J2405) IV PRN (09:45)
[2019-02-09] MEDS ORDERED: LR 1,000 ML IV SCH (09:45)
[2019-02-09] MEDS: ENOXAPARIN 40 MG/0.4 ML SYRINGE (J1650) SC SCH (10:22)
[2019-02-09] MEDS: MOM 30ML SUSPENSION UDC PO SCH ×2 (10:23→20:35)
[2019-02-09] MEDS: SENOKOT S TAB PO SCH ×2 (10:23→20:35)
--- NOTE | 2019-02-09 11:52 | IPNPDOC ---
Subjective Date Seen The patient was seen on 02/09/19. Subjective Chief Complaint/HPI Pt this morning without new concerns. She has been for colonoscopy this morning with Dr Silver revealing an obstructing mass at the proximal transverse colon. He has scheduled the pt for OR resection on Monday 02/12. General: Reports: Fatigue Constitutional: Denies: Chills, Fever Skin: Denies: Rash Pulmonary: Denies: Dyspnea, Cough Cardiovascular: Denies: Chest Pain, Palpitations Gastrointestinal: Reports: Abdominal Pain; Denies: Nausea, Vomiting Neurological: Denies: Weakness Psych: Reports: Mood Normal Objective Physical Examination General Exam: Positive: Alert, No Acute Distress ENT Exam: Positive: Mucous membr. moist/pink Chest Exam: Positive: Clear to auscultation, Normal air movement Heart Exam: Positive: Rate Normal, Regular Rhythm Abdomen Exam: Positive: BS Hypoactive, Tenderness (R side abd tenderness noted), Other (mildly distended) Psych Exam: Positive: Anxiety, Memory Intact; Negative: Mood NL Assessment /Plan Problems (1) Colonic obstruction Status: Acute Problem Text: 02/12 planned R hemicolectomy [facility] 02/09 colonoscopy reveals prox transverse colonic mass 02/08 -- suspect insufficient prep so far for colonoscopy. Discussed with patient, and she feels medication more easily tolerable if delivered through NG tube. Cont Morphine for pain zofran prn IVF (2) Liver lesion Status: Chronic Problem Text: MRI liver ordered. (3) Abdominal pain Status: Chronic Problem Text: She admits to twinges of this on and off since about August. Now worse, with prominent bloating. Plan/VTE VTE Prophylaxis Ordered?: Yes (Lovenox) VS, I&O, 24H, Fishbone Vital Signs/I&O Vital Signs Date Time Temp Pulse Resp B/P (MAP) Pulse Ox O2 Delivery O2 Flow Rate FiO2 02/09/19 11:00 97.4 79 18 106/60 (75) 96 02/09/19 09:35 2 02/07/19 01:45 Room Air I&O- Last 24 Hours up to 6 AM 02/09/19 06:00 Intake Total 2700 ml Output Total 1825 ml Balance 875 ml JAYESH STATON PA-C Feb 09, 2019 11:51 Yaya Montes M.D. Feb 09, 2019 14:51
[2019-02-09] MEDS: NS 1,000 ML IV SCH ×2 (13:11→23:11)
--- NOTE | 2019-02-09 13:54 | REP ---
Clinical: Renal cysts. Comparison: 01/05/2018 Technique: Real time morales scale ultrasound examination using curved array transducer. Findings: Right kidney is normal in reniform shape and measures 11.0 x 4.9 x 4.1 cm without hydronephrosis. A complex cortical cyst at the mid pole level measures 1.8 x 1.6 x 1.9 cm. Left kidney measures 11.7 x 3.9 x 5.9 cm and is normal in reniform shape without hydronephrosis. Complex upper pole cyst with rim calcifications measures 3.9 x 3.6 x 4.1 cm, and a complex mid pole hypoechoic cyst measures 1.2 x 1.4 x 1.5 cm. Homogeneously echogenic liver lesion in the right lobe measures 1.0 x 1.2 x 1.2 cm and likely represents hemangioma. The bladder is unremarkable. Impression: Complex cyst of the bilateral kidneys essentially unchanged compared to 01/05/2018. Electronically Signed by Cesar Davalos MD 02/09/2019 01:45 P
[2019-02-09] MEDS: SIMETHICONE 80 MG CHEW TAB PO PRN (16:31)
[2019-02-10] MEDS ORDERED: CALCIUM CARBONATE 500 MG CHEW U/D PO PRN (00:15)
[2019-02-10 02:00] VITALS: BP 125/69
[2019-02-10] MEDS: METOCLOPRAMIDE INJ 10MG/2ML VIAL (J2765) IV SCH ×4 (02:34→21:42)
[2019-02-10] MEDS: MORPHINE 4 MG/ML 1ML VIAL/SYRINGE (J2270) IV PRN ×8 (02:34→21:44)
[2019-02-10 06:00] VITALS: BP 114/73
[2019-02-10 06:08] LABS: BASO # 0.1 10^3/uL (0.0-0.2); BASO % 0.6 % (0.0-1.0); EOS # 0.3 10^3/uL (0.0-0.50); EOS % 3.2 % (0.0-3.0); HEMATOCRIT 36.8 % (36.0-47.0); HEMOGLOBIN 12.1 g/dl (12.0-15.5); LYMPH # 1.7 10^3/uL (1.5-4.5); LYMPH % 19.6 % (24.0-44.0); MEAN CORPUSCULAR HEMOGLOBIN 31.3 pg (27.0-33.0); MEAN CORPUSCULAR HGB CONC 32.9 g/dl (32.0-36.5); MEAN CORPUSCULAR VOLUME 95.3 fl (80.0-96.0); MONO # 0.8 10^3/uL (0.0-0.8); MONO % 8.5 % (0.0-5.0); NEUTROPHILS # 5.9 10^3/uL (1.8-7.7); NEUTROPHILS % 67.6 % (36.0-66.0); PLATELET COUNT, AUTOMATED 231 10^3/uL (150-450); RED BLOOD COUNT 3.86 10^6/uL (4.00-5.40); WHITE BLOOD COUNT 8.8 10^3/uL (4.0-10.0)
[2019-02-10 06:31] LABS: ALBUMIN 2.9 GM/DL (3.2-5.2); ALT/SGPT 14 U/L (12-78); BILIRUBIN,TOTAL 0.6 MG/DL (0.2-1.0); BLOOD UREA NITROGEN 12 MG/DL (7-18); CALCIUM LEVEL 7.7 MG/DL (8.5-10.1); CARBON DIOXIDE LEVEL 20 MEQ/L (21-32); CHLORIDE LEVEL 108 MEQ/L (98-107); CREATININE FOR GFR 0.54 MG/DL (0.55-1.30); GLOMERULAR FILTRATION RATE > 60.0 (>58); GLUCOSE, FASTING 57 MG/DL (70-100); POTASSIUM SERUM 3.9 MEQ/L (3.5-5.1); SODIUM LEVEL 140 MEQ/L (136-145); TOTAL PROTEIN 5.6 GM/DL (6.4-8.2)
[2019-02-10] MEDS: ENOXAPARIN 40 MG/0.4 ML SYRINGE (J1650) SC SCH (09:16)
[2019-02-10] MEDS: MOM 30ML SUSPENSION UDC PO SCH ×2 (09:16→21:42)
[2019-02-10] MEDS: SENOKOT S TAB PO SCH (09:16)
[2019-02-10 10:00] VITALS: BP 114/67
--- NOTE | 2019-02-10 12:01 | IPNPDOC ---
Subjective Date Seen The patient was seen on 02/10/19. Subjective Chief Complaint/HPI Pt this morning c/o abd distention, firmness, right sided back pain. She denies n/V. General: Denies: Fatigue Constitutional: Denies: Chills, Fever Pulmonary: Denies: Dyspnea, Cough Cardiovascular: Denies: Chest Pain, Palpitations Gastrointestinal: Denies: Nausea, Vomiting, Diarrhea Neurological: Denies: Weakness Psych: Reports: Mood Normal Objective Physical Examination General Exam: Positive: Alert, No Acute Distress ENT Exam: Positive: Mucous membr. moist/pink Chest Exam: Positive: Clear to auscultation, Normal air movement Heart Exam: Positive: Rate Normal, Regular Rhythm Abdomen Exam: Positive: BS Hypoactive, Tenderness (R side abd tenderness n oted), Other (mildly distended) Psych Exam: Positive: Anxiety, Memory Intact; Negative: Mood NL Assessment /Plan Assessment Patient seen, complains of discomfort from NG tube. Plan is for hemicolectomy on Monday 02/12. She admits to flatus x 2, but not passing any more stool. Her abdomen remains distended. -- CDT Problems (1) Colonic obstruction Status: Acute Problem Text: 02/12 [facility] colonoscopy reveals prox transverse colonic mass 02/08 -- suspect insufficient prep so far for colonoscopy. Discussed with patient, and she feels medication more easily tolerable if delivered through NG tube. Cont Morphine for pain zofran prn IVF (2) Liver lesion Status: Chronic Problem Text: MRI liver ordered. (3) Abdominal pain Status: Chronic Problem Text: She admits to twinges of this on and off since about August. Now worse, with prominent bloating. Plan/VTE VTE Prophylaxis Ordered?: Yes (Lovenox) VS, I&O, 24H, Fishbone Vital Signs/I&O Vital Signs Date Time Temp Pulse Resp B/P (MAP) Pulse Ox O2 Delivery O2 Flow Rate FiO2 02/10/19 10:36 16 02/10/19 10:00 97.9 77 114/67 (83) 95 02/09/19 09:35 2 02/07/19 01:45 Room Air I&O- Last 24 Hours up to 6 AM 02/10/19 06:00 Intake Total 3720 ml Output Total 825 ml Balance 2895 ml Laboratory Data 24H LABS Laboratory Tests 2 02/10/19 05:31: Immature Granulocyte % (Auto) 0.5, White Blood Count 8.8, Red Blood Count 3.86L, Hemoglobin 12.1, Hematocrit 36.8, Mean Corpuscular Volume 95.3, Mean Corpuscular Hemoglobin 31.3, Mean Corpuscular Hemoglobin Concent 32.9, Red Cell Distribution Width 12.4, Platelet Count 231, Neutrophils (%) (Auto) 67.6H, Lymphocytes (%) (Auto) 19.6L, Monocytes (%) (Auto) 8.5H, Eosinophils (%) (Auto) 3.2H, Basophils (%) (Auto) 0.6, Neutrophils # (Auto) 5.9, Lymphocytes # (Auto) 1.7, Monocytes # (Auto) 0.8, Eosinophils # (Auto) 0.3, Basophils # (Auto) 0.1, Nucleated Red Blood Cells % (auto) 0.0, Anion Gap 12, Glomerular Filtration Rate > 60.0, Blood Urea Nitrogen 12, Creatinine 0.54L, Sodium Level 140, Potassium Level 3.9, Chloride Level 108H, Carbon Dioxide Level 20L, Calcium Level 7.7L, Aspartate Amino Transf (AST/SGOT) 20, Alanine Aminotransferase (ALT/SGPT) 14, Alkaline Phosphatase 65, Total Bilirubin 0.6, Total Protein 5.6L, Albumin 2.9L, Albumin/Globulin Ratio 1.07, Carcinoembryonic Antigen 1.9 CBC/BMP Laboratory Tests 02/10/19 05:31 Red Blood Count 3.86 L, Mean Corpuscular Volume 95.3, Mean Corpuscular Hemoglobin 31.3, Mean Corpuscular Hemoglobin Concent 32.9, Red Cell Distribution Width 12.4, Neutrophils (%) (Auto) 67.6 H, Lymphocytes (%) (Auto) 19.6 L, [place] cytes (%) (Auto) 8.5 H, Eosinophils (%) (Auto) 3.2 H, Basophils (%) (Auto) 0.6, Neutrophils # (Auto) 5.9, Lymphocytes # (Auto) 1.7, Monocytes # (Auto) 0.8, Eosinophils # (Auto) 0.3, Basophils # (Auto) 0.1, Calcium Level 7.7 L, Aspartate Amino Transf (AST/SGOT) 20, Alanine Aminotransferase (ALT/SGPT) 14, Alkaline Phosphatase 65, Total Bilirubin 0.6, Total Protein 5.6 L, Albumin 2.9 L JAYESH STATON PA-C Feb 10, 2019 12:01 NORBERT RODRÍGUEZ DO Feb 11, 2019 00:19
--- NOTE | 2019-02-10 12:24 | RO ---
DATE OF PROCEDURE: 02/09/2019 PREOPERATIVE DIAGNOSIS: Large bowel obstruction. POSTOPERATIVE DIAGNOSIS: Large bowel obstruction. OPERATIVE PROCEDURE: Colonoscopy with biopsy. SURGEON: Aroldo Silver, ANESTHESIA: IV sedation. ESTIMATED BLOOD LOSS: Minimal. COMPLICATIONS: None. INDICATIONS FOR PROCEDURE The patient is a 48-year-old female who presents to the emergency room with complaints of abdominal distension and pain. She is found to have a large bowel obstruction on CT scan. Recommendation was to proceed with colonoscopy. The risks and benefits of the procedure not limited to but including bleeding, infection, perforation, damage to surrounding structures and need for further surgery were discussed in detail with the patient and informed consent was obtained and the procedure was planned. DESCRIPTION OF PROCEDURE The patient was brought back to operating room 4 after sedation. She was placed in the left lateral decubitus position. Next, a time-out was done to confirm proper patient and proper procedure. Following that, a colonoscope was passed through the rectum all way to level the proximal transverse colon. There was a large obstructing mass that was circumferential and almost completely obstructing. I could not even see beyond it or see an opening to pass through it. I was able to take a couple biopsies with just a jumbo cold biopsy forceps and took a bunch of pictures and that was it. I then removed the scope slowly, examining the rest of the colon. There was some internal nonbleeding hemorrhoids, grade 2, otherwise the rest of the colon was normal. The patient was awakened from anesthesia sent to PACU in stable condition. PLAN: To do a right hemicolectomy in the next couple of days.
[2019-02-10] MEDS: DICLOFENAC EPOLAMINE 1.3 % PATCH TOP SCH ×2 (13:26→21:43)
[2019-02-10] MEDS: NS 1,000 ML IV SCH (13:26)
[2019-02-10 14:00] VITALS: BP 122/68
--- NOTE | 2019-02-10 16:52 | IPN ---
DATE: 02/10/2019 HISTORY: The patient is a 48-year-old woman who presented with evidence for an obstruction in the proximal transverse colon. She had a colonoscopy yesterday, which confirmed a tumor in this area. She is tentatively scheduled by Dr. Silver for a right hemicolectomy on Tuesday, February 12, 2019. Vital signs: Show that the patient has been afebrile over the past 24 hours. Her pulse is in the 70s and 80s. Her blood pressure is normal with a normal room air oxygen saturation. Intake and output shows that yesterday she had 4500 in with 4200 out. She has had no bowel movements recorded since yesterday. PHYSICAL EXAMINATION: The patient is alert and oriented. She is complaining of some abdominal fullness and some discomfort down the right side of her abdomen. Heart exam shows a regular rhythm, and she is not tachycardiac. The lungs are clear. The abdomen is quite full. She has a few tinkly bowel sounds in the mid and upper abdomen. She has tympany to percussion in the epigastrium, in the right upper quadrant. The abdomen is full and fairly firm with some tenderness on the right side of the abdomen. There is no rebound tenderness. The abdomen on the left is significantly softer. Laboratory studies show a white count of 9, hemoglobin of 12, hematocrit of 37 and a platelet count of 231,000. Differential count shows 68% neutrophils, 20% lymphocytes and 8% monocytes. Chemistry profile shows a sodium of 140, potassium 3.9, chloride 108, CO2 of 20, BUN of 12, creatinine 0.5 and a glucose of 57. Her CEA level this morning was 1.9. 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 She is scheduled for surgery on February 12, 2019. She remains quite distended with firmness and some mild tenderness in the right side of the abdomen. She reports that she is not passing any more stool or air. PLAN: The patient will continue with her nasogastric (NG) tube for now. She has been taking a few sips of clear liquids, and I encouraged her to minimize this. I encouraged her to be up ambulating. Hopefully she will decompress, but I am not optimistic that this will happen. If her right colon remains so distended, it may be impossible to proceed with a laparoscopic resection.
[2019-02-10] MEDS: D5W/LR 1,000 ML IV SCH (17:53)
[2019-02-10 18:00] VITALS: BP 131/71
[2019-02-10 22:00] VITALS: BP 128/76
[2019-02-11] MEDS: MORPHINE 4 MG/ML 1ML VIAL/SYRINGE (J2270) IV PRN ×7 (01:27→20:46)
[2019-02-11 02:00] VITALS: BP 105/58
[2019-02-11] MEDS: METOCLOPRAMIDE INJ 10MG/2ML VIAL (J2765) IV SCH ×4 (02:07→20:44)
[2019-02-11 06:00] VITALS: BP 120/76
[2019-02-11] MEDS: D5W/LR 1,000 ML IV SCH (06:18)
[2019-02-11 10:00] VITALS: BP 120/72
[2019-02-11] MEDS: MOM 30ML SUSPENSION UDC PO SCH ×2 (10:05→20:44)
[2019-02-11] MEDS: ENOXAPARIN 40 MG/0.4 ML SYRINGE (J1650) SC SCH (10:06)
[2019-02-11] MEDS: DICLOFENAC EPOLAMINE 1.3 % PATCH TOP SCH ×2 (10:06→20:44)
--- NOTE | 2019-02-11 13:22 | IPN ---
DATE: 02/11/2019 HISTORY: The patient is awaiting a right hemicolectomy on February 12 for an obstructing proximal transverse colon mass. She reports that she did pass some additional flatus since yesterday, though she has not had any additional stool. She is less full and less uncomfortable. Her nasogastric (NG) tube remains in place. Vital signs show that she has been afebrile. Her pulse has been in the 70s today and up into the 80s at times yesterday. Her blood pressure is good with a normal room air oxygen saturation. Intake and output show that yesterday she had 2000 in with 1125 recorded out. She had 1850 recorded out from her NG tube overnight. PHYSICAL EXAMINATION: The patient is alert and oriented. Heart exam shows a regular rate and rhythm. The abdomen is somewhat protuberant, but she does have bowel sounds present and the abdomen is soft. There is some fullness in the right mid and lower abdomen, but no significant tenderness. IMPRESSION: The patient remains stable with her proximal transverse colon obstruction. PLAN: The patient is scheduled for surgery tomorrow. If she decompresses adequately, then it may be possible to proceed with a laparoscopic or robotic-assisted laparoscopic procedure. Otherwise, she may require an open procedure. She will be continued on n.p.o. status today.
[2019-02-11 14:00] VITALS: BP 116/72
--- NOTE | 2019-02-11 15:53 | REPVR ---
EXAM: MR Abdomen Without Contrast; Liver EXAM DATE/TIME: 02/11/2019 2:22 PM CLINICAL HISTORY: 48 years old, female; Pain and condition or disease; Intestinal condition; Adhesions and intussusception and obstruction and other: Known hemangioma; Other: Pelvic and abd; Patient HX: PT states pelvic pain, known blockage of colon as well as colon mass, PT states HX of liver hemangioma, priors on pacs. PT refused contrast at this time stating severe allergy; Additional info: Liver lesion TECHNIQUE: Imaging protocol: MR Abdomen without contrast. Exam focused on the liver. COMPARISON: RENAL US 02/09/2019 1:[address] ABD PELVIS W/O CONTRAST 02/06/2019 9:21:54 PM MRI ABD W/O FOL WITH 05/31/2017 2:24:13 PM FINDINGS: Limitations: Lack of intravenous contrast material limits evaluation of the vascular and visceral structures. Pleura: Small bilateral pleural effusions. Liver: Redemonstration of hepatic cysts and a hepatic hemangioma. There is a new subcapsular hypointense T1 and hyperintense T2, 18 mm x 10 mm lesion in the right posterior hepatic lobe (series 501 image 22), likely a metastasis. Gallbladder and bile ducts: Normal gallbladder. No biliary ductal dilatation. Pancreas: Normal. Spleen: Normal. Kidneys and ureters: Redemonstration of bilateral renal cysts, including a slightly complex 17 mm right renal cyst, which contains layering hemorrhagic or proteinaceous debris. No hydronephrosis. Stomach and bowel: Marked abnormal distention of the imaged portion of the ascending colon and the proximal transverse colon. Prominent segmental circumferential wall thickening of the mid transverse colon, highly suggestive of a colonic neoplasm. Wall thickness measures up to at least 2.4 cm and spans a length of at least 4.5 cm. Several prominent adjacent lymph nodes within the transverse mesocolon, measuring up to at least 13 mm in short axis dimension. Abnormal distention of the distal small bowel. Intraperitoneal space: Mild ascites. Soft tissues: Mild anasarca. IMPRESSION: 1. 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 Adjacent probable metastatic lymphadenopathy. 2. New 18 mm subcapsular lesion in the right posterior hepatic lobe, favored to represent a metastasis. 3. Mild ascites. 4. Small bilateral pleural effusions. COMMENT: Consistent with the [employer]'s Incidental Findings Committee Report (J Am Saran Radiol 2010): Unless the patient's specific circumstances suggest otherwise, any liver lesion 0.5 cm or less, any cystic kidney lesion less than 1.0 cm, and/or any adrenal lesion 1.0 cm or less not otherwise characterized in this report as possessing suspicious or indeterminate imaging features is/are highly likely to be benign and do not require follow-up imaging or biopsy. Electronically signed by: Kandi Armijo On 02/11/2019 15:52:56 PM
[2019-02-11] MEDS ORDERED: AMINO AC/ELECTROLYTE/DEX/CALC 1,000 ML IV SCH (16:00)
[2019-02-11] MEDS: HumaLOG INSULIN (NovoLOG) PER UNIT SC SCH (17:41)
[2019-02-11 18:00] VITALS: BP 122/71
[2019-02-11] MEDS ORDERED: FAT EMULSION IV 20% 500 ML IV SCH (18:00)
[2019-02-11] MEDS: AMINO AC/ELECTROLYTE/DEX/CALC 1,000 ML IV SCH (18:07)
--- NOTE | 2019-02-11 18:15 | IPNPDOC ---
Subjective Date Seen The patient was seen on 02/11/19. Subjective Chief Complaint/HPI She reports feeling a little bit better today, in terms of her abdomen. She has passed gas several times, reporting that when she has walked for a while and assumes a position or sits on the commode it is a bit easier to pass gas. However, she has not moved her bowels. The NG tube continues to be uncomfortable. She was hypoglycemic this a.m. Constitutional: Denies: Chills, Fever Pulmonary: Denies: Dyspnea, Cough Cardiovascular: Denies: Chest Pain Gastrointestinal: Reports: Abdominal Pain, Constipation; Denies: Nausea, Vomiting, Diarrhea Neurological: Denies: Weakness Objective Physical Examination General Exam: Positive: Alert, No Acute Distress ENT Exam: Positive: Mucous membr. moist/pink Chest Exam: Positive: Clear to auscultation, Normal air movement Heart Exam: Positive: Rate Normal, Regular Rhythm Abdomen Exam: Positive: BS Hypoactive, Tenderness (R side abd tenderness noted), Other (distended) Psych Exam: Positive: Anxiety, Memory Intact; Negative: Mood NL Assessment /Plan Problems (1) Colonic obstruction Status: Acute Problem Text: 02[facility] colonoscopy reveals prox transverse colonic mass 02/08 -- suspect insufficient prep so far for colonoscopy. Discussed with patient, and she feels medication more easily tolerable if delivered through NG tube. Cont Morphine for pain zofran prn IVF (2) Liver lesion Status: Chronic Problem Text: 02/11 -- MRI of the abdomen suggests new metastatic lesion; this w as a noncontrast study as patient reports allergy. MRI liver ordered. (3) Abdominal pain Status: Chronic Problem Text: 02/11 -- likely secondary to colon lesion (suspected malignancy) and/or possible metastases. She admits to twinges of this on and off since about August. Now worse, with prominent bloating. (4) Hypoglycemia Problem Text: 02/11 -- secondary to patient's NPO status. I ordered PPN for this weekend. Early next week, we can reassess progress and see if she is likely to be able to tolerate a diet, or if she might require PICC for TPN. Plan/VTE VTE Prophylaxis Ordered?: Yes (Lovenox) VS, I&O, 24H, Fishbone Vital Signs/I&O Vital Signs Date Time Temp Pulse Resp B/P (MAP) Pulse Ox O2 Delivery O2 Flow Rate FiO2 02/11/19 16:06 18 02/11/19 14:00 97.1 74 116/72 (87) 97 02/09/19 09:35 2 02/07/19 01:45 Room Air I&O- Last 24 Hours up to 6 AM 02/11/19 06:00 Intake Total 2450 ml Output Total 1350 ml Balance 1100 ml Laboratory Data 24H LABS Laboratory Tests 2 02/11/19 18:00: Bedside Glucose (Misc Panel) 75 NORBERT RODRÍGUEZ DO Feb 11, 2019 18:15
[2019-02-11 22:00] VITALS: BP 137/77
[2019-02-12] VITALS (10 sets, daily range): BP systolic 107–134; BP diastolic 67–81
[2019-02-12] MEDS: HumaLOG INSULIN (NovoLOG) PER UNIT SC SCH ×5 (00:25→23:48)
[2019-02-12] MEDS: MORPHINE 4 MG/ML 1ML VIAL/SYRINGE (J2270) IV PRN ×7 (00:26→23:10)
[2019-02-12] MEDS: METOCLOPRAMIDE INJ 10MG/2ML VIAL (J2765) IV SCH ×4 (02:02→21:03)
[2019-02-12 05:45] LABS: BASO % 0.4 % (0.0-1.0); EOS # 0.3 10^3/uL (0.0-0.50); HEMATOCRIT 34.8 % (36.0-47.0); HEMOGLOBIN 11.7 g/dl (12.0-15.5); LYMPH # 1.5 10^3/uL (1.5-4.5); LYMPH % 19.5 % (24.0-44.0); MEAN CORPUSCULAR HEMOGLOBIN 32.1 pg (27.0-33.0); MEAN CORPUSCULAR HGB CONC 33.6 g/dl (32.0-36.5); MEAN CORPUSCULAR VOLUME 95.3 fl (80.0-96.0); MONO # 0.7 10^3/uL (0.0-0.8); MONO % 8.9 % (0.0-5.0); NEUTROPHILS % 66.9 % (36.0-66.0); PLATELET COUNT, AUTOMATED 245 10^3/uL (150-450); RED BLOOD COUNT 3.65 10^6/uL (4.00-5.40); WHITE BLOOD COUNT 7.4 10^3/uL (4.0-10.0)
[2019-02-12 06:04] LABS: BLOOD UREA NITROGEN 7 MG/DL (7-18); CALCIUM LEVEL 7.3 MG/DL (8.5-10.1); CARBON DIOXIDE LEVEL 29 MEQ/L (21-32); CHLORIDE LEVEL 104 MEQ/L (98-107); CREATININE FOR GFR 0.44 MG/DL (0.55-1.30); GLOMERULAR FILTRATION RATE > 60.0 (>58); GLUCOSE, FASTING 107 MG/DL (70-100); POTASSIUM SERUM 3.3 MEQ/L (3.5-5.1); SODIUM LEVEL 139 MEQ/L (136-145)
[2019-02-12] MEDS: AMINO AC/ELECTROLYTE/DEX/CALC 1,000 ML IV SCH ×2 (06:54→18:33)
[2019-02-12] MEDS ORDERED: KETOROLAC 60 MG/2 ML VIAL (J1885) As Ordered ONE (07:20)
[2019-02-12] MEDS ORDERED: ROCURONIUM BROMIDE 50 MG/5 ML VIAL As Ordered ONE ×2 (07:20→09:09)
[2019-02-12] MEDS ORDERED: ONDANSETRON 4MG/2ML VIAL (J2405) As Ordered ONE ×2 (07:20→11:51)
[2019-02-12] MEDS ORDERED: fentaNYL 250 MCG/5 ML INJECTION (J3010) As Ordered ONE (07:20)
[2019-02-12] MEDS ORDERED: PROPOFOL 200 MG/20 ML VIAL As Ordered ONE (07:20)
[2019-02-12] MEDS ORDERED: MIDAZOLAM INJ 2 MG/2 ML VIAL (J2250) As Ordered ONE (07:20)
[2019-02-12] MEDS ORDERED: dexameTHASONE 4 MG/ML 1ML VIAL (J1100) As Ordered ONE (07:20)
[2019-02-12] MEDS ORDERED: LIDOCAINE 2% INJ 100 MG/5 ML SDV (FOR ANES.) As Ordered ONE (07:20)
[2019-02-12] MEDS ORDERED: BUPIVACAINE/EPIN 0.25% 30 ML VIAL As Ordered ONE (07:46)
--- NOTE | 2019-02-12 08:13 | IPNPDOC ---
Text Note Date of Service The patient was seen on 02/12/19. NOTE No acute events overnight. She feels like she passed more gas and has less dis tention today. VSSAF NAD abd - soft, less distended, mild tenderness right side, no rebound or guarding labs - below A) 48y/o female with large bowel partial obstruction likely due to mass P)NPO OR this am for rt hemicolectomy. No changes to the H+P. Consent is signed, and all questions are answered. Mikael Silver DO VS,Marycruz, I+O VS, Marycruz, I+O Laboratory Tests 02/12/19 05:22 Red Blood Count 3.65 L, Mean Corpuscular Volume 95.3, Mean Corpuscular Hemoglobin 32.1, Mean Corpuscular Hemoglobin Concent 33.6, Red Cell Distribution Width 12.0, Neutrophils (%) (Auto) 66.9 H, Lymphocytes (%) (Auto) 19.5 L, Monocytes (%) (Auto) 8.9 H, Eosinophils (%) (Auto) 4.0 H, Basophils (%) (Auto) 0.4, Neutrophils # (Auto) 5.0, Lymphocytes # (Auto) 1.5, Monocytes # (Auto) 0.7, Eosinophils # (Auto) 0.3, Basophils # (Auto) 0.0, Calcium Level 7.3 L Vital Signs Date Time Temp Pulse Resp B/P (MAP) Pulse Ox O2 Delivery O2 Flow Rate FiO2 02/12/19 06:01 16 02/12/19 06:00 98.1 85 119/67 (84) 94 02/09/19 09:35 2 02/07/19 01:45 Room Air I&O- Last 24 Hours up to 6 AM 02/12/19 06:00 Intake Total 1680 ml Output Total 1475 ml Balance 205 ml YAIR SILVER DO Feb 12, 2019 08:13
[2019-02-12] MEDS ORDERED: ERTAPENEM 1 GM INJ (INVanz) (J1335) As Ordered ONE (08:17)
[2019-02-12] MEDS ORDERED: HYDROmorphone HCL 2 MG/ML 1ML VIAL (J1170) As Ordered ONE (08:58)
[2019-02-12] MEDS: DICLOFENAC EPOLAMINE 1.3 % PATCH TOP SCH ×2 (09:00→21:04)
[2019-02-12] MEDS: MOM 30ML SUSPENSION UDC PO SCH ×2 (09:00→20:03)
[2019-02-12] MEDS: ERTAPENEM SODIUM 1 GM in NS MINI-BAG PLUS 50 ML IV SCH (09:00)
[2019-02-12] MEDS ORDERED: SUCCINYLCHOLINE 100 MG/5 ML SYRINGE (J0330) As Ordered ONE (09:09)
[2019-02-12] MEDS ORDERED: METOPROLOL 5 MG/5 ML VIAL As Ordered ONE (09:14)
[2019-02-12] MEDS ORDERED: SUGAMMADEX SODIUM 500 MG/5 ML VIAL (BRIDION) As Ordered ONE (09:47)
[2019-02-12] MEDS ORDERED: fentaNYL 100 MCG/2 ML INJECTION (J3010) As Ordered ONE (10:44)
[2019-02-12] MEDS: fentaNYL 100 MCG/2 ML INJECTION (J3010) IV PRN ×4 (10:44→10:59)
[2019-02-12] MEDS ORDERED: LR 1,000 ML IV SCH (11:00)
[2019-02-12] MEDS ORDERED: PERCOCET 5MG/325MG TAB PO PRN (11:00)
[2019-02-12] MEDS ORDERED: ONDANSETRON 4MG/2ML VIAL (J2405) IV PRN (11:00)
[2019-02-12] MEDS ORDERED: HYDROMORPHONE HCL 0.5 MG/ 0.5 ML SYRINGE (J1170 PER 1) As Ordered ONE ×4 (11:05→12:28)
[2019-02-12] MEDS: HYDROMORPHONE HCL 0.5 MG/ 0.5 ML SYRINGE (J1170 PER 1) IV PRN ×10 (11:05→12:39)
[2019-02-12 11:35] LABS: BLOOD UREA NITROGEN 8 MG/DL (7-18); CALCIUM LEVEL 7.1 MG/DL (8.5-10.1); CARBON DIOXIDE LEVEL 28 MEQ/L (21-32); CHLORIDE LEVEL 104 MEQ/L (98-107); CREATININE FOR GFR 0.48 MG/DL (0.55-1.30); GLOMERULAR FILTRATION RATE > 60.0 (>58); GLUCOSE, FASTING 113 MG/DL (70-100); MAGNESIUM LEVEL 2.1 MG/DL (1.8-2.4); POTASSIUM SERUM 3.6 MEQ/L (3.5-5.1); SODIUM LEVEL 141 MEQ/L (136-145)
[2019-02-12] MEDS ORDERED: KCL 10MEQ IN STERILE WATER 100ML As Ordered ONE (11:37)
[2019-02-12] MEDS: KCL 10MEQ/100ML SWI (KRUN) 10 MEQ in APPROPRIATE DILUENT 1 EA IV SCH ×3 (11:40→13:49)
[2019-02-12] MEDS: KETOROLAC 30 MG/ML VIAL (J1885) IV PRN ×2 (13:48→19:56)
[2019-02-12] MEDS ORDERED: FAT EMULSION IV 20% 500 ML IV SCH (18:00)
--- NOTE | 2019-02-12 19:38 | IPNPDOC ---
Subjective Date Seen The patient was seen on 02/12/19. Subjective Chief Complaint/HPI Patient is seen postop, and reports that she is pretty tired. Abdominal discomfort is controlled. Initially robotic assisted laparascopic hemicolectomy was planned, but it was not able to be performed, and she had an open hemicolectomy instead. She was reported to have a run of V tach during surgery. Constitutional: Denies: Chills, Fever, Malaise Pulmonary: Denies: Dyspnea, Cough Cardiovascular: Denies: Chest Pain Gastrointestinal: Reports: Abdominal Pain (states controlled); Denies: Nausea, Vomiting, Diarrhea, Constipation Objective Physical Examination General Exam: Positive: Alert, No Acute Distress ENT Exam: Positive: Mucous membr. moist/pink Chest Exam: Positive: Clear to auscultation, Normal air movement Heart Exam: Positive: Rate Normal, Regular Rhythm Abdomen Exam: Positive: BS Hypoactive, Tenderness (R side abd tenderness noted), Other (surgical incisions, and drain LLQ) Psych Exam: Negative: Mental status NL (sleepy and sedated), Mood NL Assessment /Plan Problems (1) S/P right hemicolectomy Problem Text: She had surgery earlier today; pain currently well-controlled. (2) Ventricular tachycardia Problem Text: 02/12 -- At this point, she had one self-limited run of V tach while intraoperative. Electrolytes checked. Currently monitored on telemetry. (3) Colonic obstruction Status: Acute Problem Text: 02/12 planned R hemicolectomy Adrianne 02/09 colonoscopy reveals prox transverse colonic mass 02/08 -- suspect insufficient prep so far for colonoscopy. Discussed with patient, and she feels medication more easily tolerable if delivered through NG tube. Cont Morphine for pain zofran prn IVF (4) Liver lesion Status: Chronic Problem Text: 02/11 -- MRI of the abdomen suggests new metastatic lesion; this was a noncontrast study as patient reports allergy. MRI liver ordered. (5) Abdominal pain Status: Chronic Problem Text: 02/11 -- likely secondary to colon lesion (suspected malignancy) and/or possible metastases. She admits to twinges of this on and off since about August. Now worse, with prominent bloating. (6) Hypoglycemia Problem Text: 02/12 -- rate increased to 100 ml/hour. 02/11 -- secondary to patient's NPO status. I ordered PPN for this weekend. Early next week, we can reassess progress and see if she is likely to be able to tolerate a diet, or if she might require PICC for TPN. Plan/VTE VTE Prophylaxis Ordered?: Yes (Lovenox) VS, I&O, 24H, Fishbone Vital Signs/I&O Vital Signs Date Time Temp Pulse Resp B/P (MAP) Pulse Ox O2 Delivery O2 Flow Rate FiO2 02/12/19 18:27 18 2.0 02/12/19 18:00 97.4 65 134/81 (98) 99 02/07/19 01:45 Room Air I&O- Last 24 Hours up to 6 AM 02/12/19 06:00 Intake Total 1680 ml Output Total 1475 ml Balance 205 ml Laboratory Data 24H LABS Laboratory Tests 2 02/11/19 23:44: Bedside Glucose (Misc Panel) 108H 02/12/19 05:22: Immature Granulocyte % (Auto) 0.3, White Blood Count 7.4, Red Blood Count 3.65L, Hemoglobin 11.7L, Hematocrit 34.8L, Mean Corpuscular Volume 95.3, Mean Corpuscular Hemoglobin 32.1, Mean Corpuscular Hemoglobin Concent 33.6, Red Cell Distribution Width 12.0, Platelet Count 245, Neutrophils (%) (Auto) 66.9H, Ly mphocytes (%) (Auto) 19.5L, Monocytes (%) (Auto) 8.9H, Eosinophils (%) (Auto) 4.0H, Basophils (%) (Auto) 0.4, Neutrophils # (Auto) 5.0, Lymphocytes # (Auto) 1.5, Monocytes # (Auto) 0.7, Eosinophils # (Auto) 0.3, Basophils # (Auto) 0.0, Nucleated Red Blood Cells % (auto) 0.0, Anion Gap 6L, Glomerular Filtration Rate > 60.0, Blood Urea Nitrogen 7, Creatinine 0.44L, Sodium Level 139, Potassium Level 3.3L, Chloride Level 104, Carbon Dioxide Level 29, Calcium Level 7.3L 02/12/19 05:41: Bedside Glucose (Misc Panel) 103 02/12/19 10:56: Anion Gap 9, Glomerular Filtration Rate > 60.0, Blood Urea Nitrogen 8, Creatinine 0.48L, Sodium Level 141, Potassium Level 3.6, Chloride Level 104, Carbon Dioxide Level 28, Calcium Level 7.1L, Magnesium Level 2.1 02/12/19 13:05: HIV (1&2) Antibody NEGATIVE, HIV P24 Antigen NEGATIVE 02/12/19 18:20: Bedside Glucose (Misc Panel) 135H CBC/BMP Laboratory Tests 02/12/19 05:22 Red Blood Count 3.65 L, Mean Corpuscular Volume 95.3, Mean Corpuscular Hemoglobin 32.1, Mean Corpuscular Hemoglobin Concent 33.6, Red Cell Distribution Width 12.0, Neutrophils (%) (Auto) 66.9 H, Lymphocytes (%) (Auto) 19.5 L, Monocytes (%) (Auto) 8.9 H, Eosinophils (%) (Auto) 4.0 H, Basophils (%) (Auto) 0.4, Neutrophils # (Auto) 5.0, Lymphocytes # (Auto) 1.5, Monocytes # (Auto) 0.7, Eosinophils # (Auto) 0.3, Basophils # (Auto) 0.0, Calcium Level 7.3 L 02/12/19 10:56 Calcium Level 7.1 L ONRBERT RODRÍGUEZ DO Feb 12, 2019 19:38
[2019-02-13] MEDS: MORPHINE 4 MG/ML 1ML VIAL/SYRINGE (J2270) IV PRN ×10 (01:18→23:10)
[2019-02-13 02:00] VITALS: BP 125/80
[2019-02-13] MEDS: METOCLOPRAMIDE INJ 10MG/2ML VIAL (J2765) IV SCH ×4 (02:27→20:14)
[2019-02-13] MEDS: KETOROLAC 30 MG/ML VIAL (J1885) IV PRN ×4 (02:27→21:59)
[2019-02-13] MEDS: HumaLOG INSULIN (NovoLOG) PER UNIT SC SCH ×2 (05:55→12:42)
[2019-02-13] MEDS: AMINO AC/ELECTROLYTE/DEX/CALC 1,000 ML IV SCH (05:55)
[2019-02-13 06:00] VITALS: BP 130/82
--- NOTE | 2019-02-13 08:00 | RO ---
DATE OF PROCEDURE: 02/07/2019 PREOPERATIVE DIAGNOSIS: Colonic obstruction. POSTOPERATIVE DIAGNOSIS: Colonic obstruction secondary to a large mass. PROCEDURE: Laparoscopic lysis of adhesions followed by laparotomy with transverse colon resection and primary anastomosis. SURGEON: Aroldo Silver DO [employer] MANAGER: Monico Small MD who assisted with retraction, mobilization of the colon as well as the anastomosis. ANESTHESIA: General. ESTIMATED BLOOD LOSS: 50 mL. COMPLICATIONS: None. INDICATIONS FOR PROCEDURE: The patient is a 48-year-old female with a large bowel obstruction on the proximal mid transverse colon. Recommendation was to proceed with laparoscopic possible open resection. Risks and benefits of procedure not limited to, but including bleeding, infection, hernia formation, damage to surrounding structures, need for further surgery, and anastomotic leak were discussed in detail with the patient. Informed consent was obtained procedure was planned. PROCEDURE: Patient brought back to operating room 2. After sufficient sedation the abdomen was sterilely prepped and draped, and a Castillo catheter was placed. Next, a time out was done to confirm proper patient and proper procedure. Following that, a 5 mm incision was made in the left lower quadrant, Veress needle inserted, and the was insufflated to 15 mmHg. Next, the Veress needle was removed and a 5 mm OptiView port was used to gain access to the abdomen. Once the abdomen was entered the large bowel was extremely distended making it very difficult to visualize anything. I was able to place another 5 mm port in the left lower quadrant and using the ENSEAL I was able to take down some adhesions to the anterior abdominal wall from her previous surgeries. Once that was completed the abdomen was examined. The mass was identified in the mid transverse colon. Dissection was limited due to the distention of the colon. Therefore, a decision was made to open. Next, a 10 blade scalpel was used to make an incision subxiphoid down around the umbilicus. Incision was carried through the fascia using electrocautery. Once the abdomen was entered and was examined, the mass was easily identified right in the mid transverse colon and appeared to have enough space where we could do a transverse colon resection as opposed to a right hemicolectomy. Next, I examined the rest of the abdomen. Some ascites was taken out and sent for cytology, and I was able to palpate the entire liver and did not feel any obvious nodules. Next, the lesser sac was entered superior to the colon, dissected through the gastrocolic ligament, dissected around the hepatic flexure releasing the proximal transverse colon, and carried that dissection distally towards the splenic flexure as well. Once we had created enough freedom to recreate the anastomosis, I created a window into the transverse colon mesentery, took a MAYRA 100 stapler with a blue load and transected proximally and distally. Then, using the ENSEAL I was able to dissect down through the mesentery of the transverse colon. Once I reached the middle colic artery, I clamped it with a Lynn, I cut across with the ENSEAL and then suture ligated with a #2-0 silk suture. Once this was all completed the specimen was removed. The abdomen was examined. A couple of other large obvious lymph nodes in the mesentery were dissected out and sent along with the specimen for pathology. Next, a [id number] anastomosis was done with the proximal and distal transverse colon. A MAYRA blue load stapler was used again to create the anastomosis. The anastomosis was imbricated slightly with a couple #3-0 silk Lambert sutures. TISSEEL was then placed along the anastomosis line. A 19 Portuguese Primo drain was placed next to the anastomosis and brought out through the left lower quadrant port site. The abdomen was then irrigated with some warm saline. Skin incision was closed with #1 looped PDS. The skin was closed with viry. The drain was sutured place with #2-0 silk suture. The abdomen was cleaned and dried, 4x4 and tape were applied thus ending procedure.
--- NOTE | 2019-02-13 08:56 | IPNPDOC ---
Text Note Date of Service The patient was seen on 02/13/19. NOTE No acute events overnight. She has not been out of bed since surgery, but feels like she wants to. Denies any chest pain, SOB, nausea, or emesis. VSSAF NAD abd - soft, less distended, TTP appropriate, dressings c/d/i, andres drain with serosanguinous drainage A) 48y/o female with large bowel partial obstruction likely due to mass POD#1 s/p transverse colectomy P)sips and chips dc christianson ambulate IS check labs in am clamp NG and start clears at lunch Mikael Silver DO VS,Fishbone, I+O VS, Fishbone, I+O Laboratory Tests 02/12/19 10:56 Calcium Level 7.1 L Vital Signs Date Time Temp Pulse Resp B/P (MAP) Pulse Ox O2 Delivery O2 Flow Rate FiO2 02/13/19 06:06 16 02/13/19 06:00 97.6 84 130/82 (98) 97 2.0 02/07/19 01:45 Room Air I&O- Last 24 Hours up to 6 AM 02/13/19 06:00 Intake Total 2290 ml Output Total 3530 ml Balance -1240 ml YAIR SILVER DO Feb 13, 2019 08:56
--- NOTE | 2019-02-13 09:30 | ECGEPIP ---
[facility] Test Date: 2019-02-12 Pat Name: SERENA CAGLE Department: Room: [place] [address] Gender: Female Scale Tester: REAL : 1970 Requested By: BOB Floyd Order Number: [id number] Reading MD: Roxane Brown Measurements Intervals [place] Rate: 87 P: 69 ID: [id number] QRS: 62 QRSD: 92 T: 50 QT: 378 QTc: 457 Interpretive Statements SINUS RHYTHM NORMAL NO PRIOR BORDERLINE LIMB VOLTAGE Electronically Signed on 02-13-2019 9:29:55 EDT by Roxane Brown
[2019-02-13] MEDS: ERTAPENEM SODIUM 1 GM in NS MINI-BAG PLUS 50 ML IV SCH (09:33)
[2019-02-13] MEDS: DICLOFENAC EPOLAMINE 1.3 % PATCH TOP SCH ×2 (09:38→20:15)
[2019-02-13] MEDS: ENOXAPARIN 40 MG/0.4 ML SYRINGE (J1650) SC SCH (09:38)
[2019-02-13 10:00] VITALS: BP 129/79
[2019-02-13 10:19] LABS: HEMATOCRIT 39.5 % (36.0-47.0); HEMOGLOBIN 13.2 g/dl (12.0-15.5); MEAN CORPUSCULAR HEMOGLOBIN 31.1 pg (27.0-33.0); MEAN CORPUSCULAR HGB CONC 33.4 g/dl (32.0-36.5); MEAN CORPUSCULAR VOLUME 93.2 fl (80.0-96.0); PLATELET COUNT, AUTOMATED 271 10^3/uL (150-450); RED BLOOD COUNT 4.24 10^6/uL (4.00-5.40)
[2019-02-13 10:43] LABS: BLOOD UREA NITROGEN 10 MG/DL (7-18); CALCIUM LEVEL 7.9 MG/DL (8.5-10.1); CARBON DIOXIDE LEVEL 29 MEQ/L (21-32); CHLORIDE LEVEL 105 MEQ/L (98-107); CREATININE FOR GFR 0.58 MG/DL (0.55-1.30); GLOMERULAR FILTRATION RATE > 60.0 (>58); GLUCOSE, FASTING 117 MG/DL (70-100); POTASSIUM SERUM 4.3 MEQ/L (3.5-5.1); SODIUM LEVEL 139 MEQ/L (136-145)
--- NOTE | 2019-02-13 11:02 | IPNPDOC ---
Subjective Date Seen The patient was seen on 02/13/19. Subjective Chief Complaint/HPI Pt this morning states that she is doing alright, she does have abd pain and cramping. She has passes a very small amt of gas. General: Denies: Fatigue Constitutional: Denies: Chills, Fever Pulmonary: Denies: Dyspnea, Cough Cardiovascular: Denies: Chest Pain Gastrointestinal: Reports: Abdominal Pain; Denies: Nausea, Vomiting, Diarrhea Psych: Reports: Mood Normal Objective Physical Examination General Exam: Positive: Alert, No Acute Distress ENT Exam: Positive: Mucous membr. moist/pink Chest Exam: Positive: Clear to auscultation, Normal air movement Heart Exam: Positive: Rate Normal, Regular Rhythm Abdomen Exam: Positive: BS Hypoactive, Tenderness (clean, dry bandages, serosanguinous blood in drainage tube), Other (surgical incisions, and drain LLQ) Psych Exam: Negative: Mental status NL (sleepy and sedated), Mood NL Assessment /Plan Problems (1) S/P right hemicolectomy Problem Text: 02/13 Pain controlled. Mgmt per GS. 02/12 She had surgery earlier today; pain currently well-controlled. (2) Ventricular tachycardia Problem Text: 02/12 -- At this point, she had one self-limited run of V tach while intraoperative. Electrolytes checked. Currently monitored on telemetry. (3) Colonic obstruction Status: Acute Problem Text: 02/12 planned R hemicolectomy Adrianne 02/09 colonoscopy reveals prox transverse colonic mass 02/08 -- suspect insufficient prep so far for colonoscopy. Discussed with patient, and she feels medication more easily tolerable if delivered through NG tube. Cont Morphine for pain zofran prn IVF (4) Liver lesion Status: Chronic Problem Text: 02/11 -- MRI of the abdomen suggests new metastatic lesion; this was a noncontrast study as patient reports allergy. MRI liver ordered. (5) Abdominal pain Status: Chronic Problem Text: 02/11 -- likely secondary to colon lesion (suspected malignancy) and/or possible metastases. She admits to twinges of this on and off since about August. Now worse, with prominent bloating. (6) Hypoglycemia Problem Text: 02/12 -- rate increased to 100 ml/hour. 02/11 -- secondary to patient's NPO status. I ordered PPN for this weekend. Early next week, we can reassess progress and see if she is likely to be able to tolerate a diet, or if she might require PICC for TPN. Plan/VTE VTE Prophylaxis Ordered?: Yes (Lovenox) VS, I&O, 24H, Fishbone Vital Signs/I&O Vital Signs Date Time Temp Pulse Resp B/P (MAP) Pulse Ox O2 Delivery O2 Flow Rate FiO2 02/13/19 10:00 18 02/13/19 06:00 97.6 84 130/82 (98) 97 2.0 02/07/19 01:45 Room Air I&O- Last 24 Hours up to 6 AM 02/13/19 06:00 Intake Total 2290 ml Output Total 3530 ml Balance -1240 ml Laboratory Data 24H LABS Laboratory Tests 2 02/12/19 13:05: HIV (1&2) Antibody NEGATIVE, HIV P24 Antigen NEGATIVE 02/12/19 18:20: Bedside Glucose (Misc Panel) 135H 02/12/19 23:36: Bedside Glucose (Misc Panel) 115H 02/13/19 05:45: Bedside Glucose (Misc Panel) 111H 02/13/19 10:05: Nucleated Red Blood Cells % (auto) 0.0, Anion Gap 5L, Glomerular Filtration Rate > 60.0, Blood Urea Nitrogen 10, Creatinine 0.58, Sodium Level 139, Potassium Level 4.3, Chloride Level 105, Carbon Dioxide Level 29, Calcium Level 7.9L CBC/BMP Laboratory Tests 02/13/19 10:05 Red Blood Count 4.24, Mean Corpuscular Volume 93.2, Mean Corpuscular Hemoglobin 31.1, Mean Corpuscular Hemoglobin Concent 33.4, Red Cell Distribution Width 12.1, Calcium Level 7.9 L JAYESH STATON PA-C Feb 13, 2019 11:02
[2019-02-13 11:10] LABS: HEP C VIRUS AB INDEX SOURCE PT 0.1 INDEX (0.0-0.8)
[2019-02-13 22:00] VITALS: BP 121/80
[2019-02-14] MEDS: MORPHINE 4 MG/ML 1ML VIAL/SYRINGE (J2270) IV PRN (01:34)
[2019-02-14 02:00] VITALS: BP 118/74
[2019-02-14] MEDS ORDERED: MORPHINE 4 MG/ML 1ML VIAL/SYRINGE (J2270) IV PRN (04:15)
[2019-02-14] MEDS: METOCLOPRAMIDE INJ 10MG/2ML VIAL (J2765) IV SCH ×4 (04:19→22:12)
[2019-02-14 06:00] VITALS: BP 134/76
[2019-02-14 06:02] LABS: HEMATOCRIT 36.3 % (36.0-47.0); MEAN CORPUSCULAR HEMOGLOBIN 31.9 pg (27.0-33.0); MEAN CORPUSCULAR HGB CONC 33.1 g/dl (32.0-36.5); MEAN CORPUSCULAR VOLUME 96.5 fl (80.0-96.0); PLATELET COUNT, AUTOMATED 235 10^3/uL (150-450); RED BLOOD COUNT 3.76 10^6/uL (4.00-5.40); WHITE BLOOD COUNT 8.8 10^3/uL (4.0-10.0)
[2019-02-14 06:30] LABS: BLOOD UREA NITROGEN 12 MG/DL (7-18); CALCIUM LEVEL 7.7 MG/DL (8.5-10.1); CARBON DIOXIDE LEVEL 28 MEQ/L (21-32); CHLORIDE LEVEL 103 MEQ/L (98-107); CREATININE FOR GFR 0.56 MG/DL (0.55-1.30); GLOMERULAR FILTRATION RATE > 60.0 (>58); GLUCOSE, FASTING 88 MG/DL (70-100); POTASSIUM SERUM 4.1 MEQ/L (3.5-5.1); SODIUM LEVEL 137 MEQ/L (136-145)
[2019-02-14] MEDS: KETOROLAC 30 MG/ML VIAL (J1885) IV PRN ×3 (06:49→18:52)
--- NOTE | 2019-02-14 08:22 | IPNPDOC ---
Subjective Date Seen The patient was seen on 02/14/19. Subjective Chief Complaint/HPI Pt this morning without new concerns. She is ambulating in the halls, showering, sipping on water. She is passing gas. She is eager to have rina ething to eat. General: Denies: Fatigue Constitutional: Denies: Chills, Fever Pulmonary: Denies: Dyspnea, Cough Cardiovascular: Denies: Chest Pain, Palpitations Gastrointestinal: Reports: Abdominal Pain (controlled); Denies: Nausea, Vomiting Neurological: Denies: Weakness Psych: Reports: Mood Normal Objective Physical Examination General Exam: Positive: Alert, No Acute Distress ENT Exam: Positive: Mucous membr. moist/pink Chest Exam: Positive: Clear to auscultation, Normal air movement Heart Exam: Positive: Rate Normal, Regular Rhythm Abdomen Exam: Positive: BS Hypoactive, Tenderness, Other Extremity Exam: Negative: Edema Psych Exam: Positive: Mental status NL, Mood NL Assessment /Plan Problems (1) S/P right hemicolectomy Problem Text: 02/14 Pain controlled, tolerating clears, plans to DC NG today and advance to full liquids, she can start eating a regular diet when she has a BM. She was encouraged to cont to ambulate in the halls. 02/13 Pain controlled. Mgmt per GS. 02/12 She had surgery earlier today; pain currently well-controlled. (2) Ventricular tachycardia Problem Text: 02/12 -- At this point, she had one self-limited run of V tach while intraoperative. Electrolytes checked. Currently monitored on telemetry. (3) Colonic obstruction Status: Acute Problem Text: 02/12 planned R hemicolectomy Adrianne 02/09 colonoscopy reveals prox transverse colonic mass 02/08 -- suspect insufficient prep so far for colonoscopy. Discussed with patient, and she feels medication more easily tolerable if delivered through NG tube. Cont Morphine for pain zofran prn IVF (4) Liver lesion Status: Chronic Problem Text: 02/11 -- MRI of the abdomen suggests new metastatic lesion; this was a noncontrast study as patient reports allergy. MRI liver ordered. (5) Abdominal pain Status: Chronic Problem Text: 02/11 -- likely secondary to colon lesion (suspected malignancy) and/or possible metastases. She admits to twinges of this on and off since about August. Now worse, with prominent bloating. (6) Hypoglycemia Problem Text: 02/12 -- rate increased to 100 ml/hour. 02/11 -- secondary to patient's NPO status. I ordered PPN for this weekend. Early next week, we can reassess progress and see if she is likely to be able to tolerate a diet, or if she might require PICC for TPN. Plan/VTE VTE Prophylaxis Ordered?: Yes (Lovenox) VS, I&O, 24H, Fishbone Vital Signs/I&O Vital Signs Date Time Temp Pulse Resp B/P (MAP) Pulse Ox O2 Delivery O2 Flow Rate FiO2 02/14/19 06:00 98.4 84 18 134/76 (95) 95 02/13/19 06:00 2.0 I&O- Last 24 Hours up to 6 AM 02/14/19 05:59 Intake Total 1640 ml Output Total 3165 ml Balance -1525 ml Laboratory Data 24H LABS Laboratory Tests 2 02/13/19 10:05: Nucleated Red Blood Cells % (auto) 0.0, Anion Gap 5L, Glomerular Filtration Rate > 60.0, Blood Urea Nitrogen 10, Creatinine 0.58, Sodium Level 139, Potassium Level 4.3, Chloride Level 105, Carbon Dioxide Level 29, Calcium Level 7.9L 02/13/19 12:17: Bedside Glucose (Misc Panel) 102 02/14/19 05:22: Nucleated Red Blood Cells % (auto) 0.0, Anion Gap 6L, Glomerular Filtration Rate > 60.0, Blood Urea Nitrogen 12, Creatinine 0.56, Sodium Level 137, Potassium Level 4.1, Chloride Level 103, Carbon Dioxide Level 28, Calcium Level 7.7L, Magnesium Level 2.0 CBC/BMP Laboratory Tests 02/13/19 10:05 Red Blood Count 4.24, Mean Corpuscular Volume 93.2, Mean Corpuscular Hemoglobin 31.1, Mean Corpuscular Hemoglobin Concent 33.4, Red Cell Distribution Width 12.1 , Calcium Level 7.9 L 02/14/19 05:22 Red Blood Count 3.76 L, Mean Corpuscular Volume 96.5 H, Mean Corpuscular Hemoglobin 31.9, Mean Corpuscular Hemoglobin Concent 33.1, Red Cell Distribution Width 12.2, Calcium Level 7.7 L JAYESH STATON PA-C Feb 14, 2019 08:22
--- NOTE | 2019-02-14 08:27 | IPNPDOC ---
Text Note Date of Service The patient was seen on 02/14/19. NOTE No acute events overnight. She has been out of bed, and is walking in the halls. She is passing flatus, but no BM yet. Denies any chest pain, SOB, nausea, or emesis. VSSAF NAD abd - soft, less distended, TTP appropriate, dressings c/d/i, andres drain with serosanguinous drainage Path - cytology is negative for A) 48y/o female with large bowel partial obstruction likely due to mass POD#2 s/p transverse colectomy P) flq diet ambulate IS will advance diet and dc drain after a BM Mikael Silver DO VS,Fishbone, I+O VS, Fishbone, I+O Laboratory Tests 02/13/19 10:05 Red Blood Count 4.24, Mean Corpuscular Volume 93.2, Mean Corpuscular Hemoglobin 31.1, Mean Corpuscular Hemoglobin Concent 33.4, Red Cell Distribution Width 12.1, Calcium Level 7.9 L 02/14/19 05:22 Red Blood Count 3.76 L, Mean Corpuscular Volume 96.5 H, Mean Corpuscular Hemoglobin 31.9, Mean Corpuscular Hemoglobin Concent 33.1, Red Cell Distribution Width 12.2, Calcium Level 7.7 L Vital Signs Date Time Temp Pulse Resp B/P (MAP) Pulse Ox O2 Delivery O2 Flow Rate FiO2 02/14/19 06:00 98.4 84 18 134/76 (95) 95 02/13/19 06:00 2.0 I&O- Last 24 Hours up to 6 AM 02/14/19 06:00 Intake Total 920 ml Output Total 1685 ml Balance -765 ml YAIR SILVER DO Feb 14, 2019 08:27
[2019-02-14] MEDS: ENOXAPARIN 40 MG/0.4 ML SYRINGE (J1650) SC SCH (08:37)
[2019-02-14] MEDS: NORCO, ANEXSIA 5/325MG TABLET (HYDROcodone/ACETAMINOPHEN) PO PRN ×3 (08:37→22:13)
[2019-02-14] MEDS: DICLOFENAC EPOLAMINE 1.3 % PATCH TOP SCH ×2 (08:39→21:00)
[2019-02-14 10:00] VITALS: BP 102/57
[2019-02-14 14:00] VITALS: BP 113/72
[2019-02-14 18:00] VITALS: BP 109/75
[2019-02-14 22:00] VITALS: BP 108/72
[2019-02-14] MEDS: SIMETHICONE 80 MG CHEW TAB PO PRN (22:14)
[2019-02-15 02:00] VITALS: BP 112/72
[2019-02-15] MEDS: METOCLOPRAMIDE INJ 10MG/2ML VIAL (J2765) IV SCH ×4 (02:23→21:46)
[2019-02-15] MEDS: KETOROLAC 30 MG/ML VIAL (J1885) IV PRN (02:24)
[2019-02-15] MEDS: NORCO, ANEXSIA 5/325MG TABLET (HYDROcodone/ACETAMINOPHEN) PO PRN ×4 (04:34→18:57)
[2019-02-15] MEDS: SIMETHICONE 80 MG CHEW TAB PO PRN ×2 (04:34→17:05)
[2019-02-15 06:00] VITALS: BP 112/71
[2019-02-15 06:18] LABS: HEMATOCRIT 34.7 % (36.0-47.0); HEMOGLOBIN 11.6 g/dl (12.0-15.5); MEAN CORPUSCULAR HEMOGLOBIN 31.1 pg (27.0-33.0); MEAN CORPUSCULAR HGB CONC 33.4 g/dl (32.0-36.5); PLATELET COUNT, AUTOMATED 253 10^3/uL (150-450); RED BLOOD COUNT 3.73 10^6/uL (4.00-5.40); WHITE BLOOD COUNT 7.3 10^3/uL (4.0-10.0)
[2019-02-15 06:42] LABS: BLOOD UREA NITROGEN 12 MG/DL (7-18); CALCIUM LEVEL 7.9 MG/DL (8.5-10.1); CARBON DIOXIDE LEVEL 30 MEQ/L (21-32); CHLORIDE LEVEL 104 MEQ/L (98-107); CREATININE FOR GFR 0.59 MG/DL (0.55-1.30); GLOMERULAR FILTRATION RATE > 60.0 (>58); GLUCOSE, FASTING 89 MG/DL (70-100); MAGNESIUM LEVEL 2.1 MG/DL (1.8-2.4); POTASSIUM SERUM 3.8 MEQ/L (3.5-5.1); SODIUM LEVEL 139 MEQ/L (136-145)
--- NOTE | 2019-02-15 07:59 | IPNPDOC ---
Text Note Date of Service The patient was seen on 02/15/19. NOTE No acute events overnight. She has been out of bed, and is walking in the halls. She is passing flatus, but no BM yet. Denies any chest pain, SOB, nausea, or emesis. She is tolerating the full liquid diet without any problems. VSSAF NAD abd - soft, less distended, TTP appropriate, incision c/d/i, andres drain with serosanguinous drainage Path - cytology is negative for malignancy, and final path is pending A) 48y/o female with large bowel partial obstruction likely due to mass POD#3 s/p transverse colectomy P) reg diet ambulate IS will d/c home and dc drain after a BM Mikael Silver DO VS,Marycruz, I+O VS, Maryc[place], I+O Laboratory Tests 02/15/19 05:34 Red Blood Count 3.73 L, Mean Corpuscular Volume 93.0, Mean Corpuscular Hemoglobin 31.1, Mean Corpuscular Hemoglobin Concent 33.4, Red Cell Distribution Width 12.0, Calcium Level 7.9 L Vital Signs Date Time Temp Pulse Resp B/P (MAP) Pulse Ox O2 Delivery O2 Flow Rate FiO2 02/15/19 06:00 97.8 68 18 112/71 (85) 94 02/13/19 06:00 2.0 I&O- Last 24 Hours up to 6 AM 02/15/19 06:00 Intake Total 720 ml Output Total 780 ml Balance -60 ml YAIR SILVER DO Feb 15, 2019 07:59
[2019-02-15] MEDS: ENOXAPARIN 40 MG/0.4 ML SYRINGE (J1650) SC SCH (08:03)
[2019-02-15] MEDS: IBUPROFEN 800 MG TAB PO PRN ×2 (08:03→16:17)
[2019-02-15] MEDS: DICLOFENAC EPOLAMINE 1.3 % PATCH TOP SCH ×2 (09:00→21:47)
--- NOTE | 2019-02-15 09:19 | IPNPDOC ---
Subjective Date Seen The patient was seen on 02/15/19. Subjective Chief Complaint/HPI Eating some solid food this am, Passing Flatus - no BM yet No n/v abd pain improving Constitutional: Denies: Chills, Fever Pulmonary: Denies: Dyspnea, Cough Cardiovascular: Denies: Chest Pain, Palpitations Gastrointestinal: Reports: Abdominal Pain (post-surgical - as expected), Constipation; Denies: Nausea, Vomiting, Diarrhea Objective Physical Examination General Exam: Positive: Alert, No Acute Distress ENT Exam: Positive: Mucous membr. moist/pink Chest Exam: Positive: Clear to auscultation, Normal air movement Heart Exam: Positive: Rate Normal, Regular Rhythm Abdomen Exam: Positive: BS Hypoactive, Soft, Tenderness, Other Extremity Exam: Negative: Edema Psych Exam: Positive: Mental status NL, Mood NL Assessment /Plan Problems (1) S/P right hemicolectomy Problem Text: 02/15 - Diet advanced - eating solid food this am, ambulating frequently, passing flatus. Per surgery - will d/c home after passes BM - plans to d/c drain after BM 02/14 Pain controlled, tolerating clears, plans to DC NG today and advance to full liquids, she can start eating a regular diet when she has a BM. She was encouraged to cont to ambulate in the halls. 02/13 Pain controlled. Mgmt per GS. 02/12 She had surgery earlier today; pain currently well-controlled. (2) Ventricular tachycardia Problem Text: 02/12 -- At this point, she had one self-limited run of V tach while intraoperative. Electrolytes checked. Currently monitored on telemetry. (3) Colonic obstruction Status: Acute Problem Text: 02/12 planned R hemicolectomy Adrianne 02/09 colonoscopy reveals prox transverse colonic mass 02/08 -- suspect insufficient prep so far for colonoscopy. Discussed with patient, and she feels medication more easily tolerable if delivered through NG tube. Cont Morphine for pain zofran prn IVF (4) Liver lesion Status: Chronic Problem Text: 02/11 -- MRI of the abdomen suggests new metastatic lesion; this was a noncontrast study as patient reports allergy. MRI liver ordered. (5) Abdominal pain Status: Chronic Problem Text: 02/11 -- likely secondary to colon lesion (suspected malignancy) and/or possible metastases. She admits to twinges of this on and off since about August. Now worse, with prominent bloating. (6) Hypoglycemia Problem Text: 02/12 -- rate increased to 100 ml/hour. 02/11 -- secondary to patient's NPO status. I ordered PPN for this weekend. Early next week, we can reassess progress and see if she is likely to be able to tolerate a diet, or if she might require PICC for TPN. Plan/VTE VTE Prophylaxis Ordered?: Yes (Lovenox) VS, I&O, 24H, Fishbone Vital Signs/I&O Vital Signs Date Time Temp Pulse Resp B/P (MAP) Pulse Ox O2 Delivery O2 Flow Rate FiO2 02/15/19 06:00 97.8 68 18 112/71 (85) 94 02/13/19 06:00 2.0 I&O- Last 24 Hours up to 6 AM 02/15/19 06:00 Intake Total 720 ml Output Total 780 ml Balance -60 ml Laboratory Data 24H LABS Laboratory Tests 2 02/15/19 05:34: Nucleated Red Blood Cells % (auto) 0.0, Anion Gap 5L, Glomerular Filtration Rate > 60.0, Blood Urea Nitrogen 12, Creatinine 0.59, Sodium Level 139, Potassium Level 3.8, Chloride Level 104, Carbon Dioxide Level 30, Calcium Level 7.9L, Magnesium Level 2.1 CBC/BMP Laboratory Tests 02/15/19 05:34 Red Blood Count 3.73 L, Mean Corpuscular Volume 93.0, Mean Corpuscular Hemoglobin 31.1, Mean Corpuscular Hemoglobin Concent 33.4, Red Cell Distribution Width 12.0, Calcium Level 7.9 L NILAM IRIZARRY PA-C Feb 15, 2019 09:19
[2019-02-15 10:00] VITALS: BP 119/75
[2019-02-15 13:32] LABS: HEPATITIS B SURFACE ANTIGEN NEGATIVE (NEGATIVE)
--- NOTE | 2019-02-15 13:58 | CR.PDOC ---
General Date of Consultation: Feb 15, 2019 Referring Provider: YAIR CARBAJAL DO Consultation REASON FOR CONSULTATION/CHIEF COMPLAINT: Infusiport placement HISTORY OF PRESENT ILLNESS: Ms Cardoza is a very pleasant 48yo patient with recent diagnosis of colon cancer s/p resection of transverse colon 2/2 obstruction. We were consulted to place infusiport for chemotherapy, lab draws, medications. Risk, benefits, and alternatives were explained to the patient and she is agreeable to proceed. PAST MEDICAL HISTORY: Kidney stones, renal cysts, tobacco abuse, liver hemangioma, colon cancer. PAST SURGICAL HISTORY: Appendectomy, hysterectomy, C section, transverse colon resection and lysis of adhesions. FAMILY HISTORY: Noncontributory. ALLERGIES: SEAFOOD and LATEX. HOME MEDICATIONS: Please see medical record. SOCIAL HISTORY: Smokes half a pack a day. Occasional alcohol. No drug abuse. ALLERGIES: Please see below. HOME MEDICATIONS: Please see below. REVIEW OF SYSTEMS: CONSTITUTIONAL: no f/c HEENT: no dysphasia or dysphagia CARDIOVASCULAR: no CP RESPIRATORY: no SOB +cough GENITOURINARY: no dysuria. +h/o kidney stones MUSCULOSKELETAL: no claudication GASTROINTESTINAL: +n/v. +bloating. +abdominal pain. SKIN: no rashes NEUROLOGICAL: no sz or BHATIA PSYCHIATRIC: no anxiety, depression ENDOCRINE: no DM, thyroid disease HEMATOLOGIC/LYMPHATIC: no bleeding/clotting disorders ALLERGIC/IMMUNOLOGIC: denies. PHYSICAL EXAMINATION: VITAL SIGNS: Please see below. GENERAL APPEARANCE: NAD HEENT: NC RESPIRATORY: Slightly coarse BS bilat CARDIOVASCULAR: RRR ABDOMEN: soft, approp postop TTP, +BS EXTREMITIES: + distal pulses NEUROLOGICAL: MAEE, A&Ox3 PSYCHIATRIC: pleasant and cooperative LABORATORY DATA: Please see below. ASSESSMENT/PLAN: 48yo patient with recent diagnosis colon cancer requiring IV access for medications, blood draws, and chemotherapy. 1. Infusiport placement tomorrow at 7am. 2. NPO after midnight. 3. Ancef 1G IV pre-procedure. Vital Signs/I&O Vital Signs Date Time Temp Pulse Resp B/P (MAP) Pulse Ox O2 Delivery O2 Flow Rate FiO2 02/15/19 10:54 18 02/15/19 10:00 97.4 94 119/75 (90) 97 02/13/19 06:00 2.0 I&O- Last 24 Hours up to 6 AM 02/15/19 06:00 Intake Total 720 ml Output Total 780 ml Balance -60 ml Laboratory Data Labs 24H Laboratory Tests 2 02/15/19 05:34: Nucleated Red Blood Cells % (auto) 0.0, Anion Gap 5L, Glomerular Filtration Rate > 60.0, Blood Urea Nitrogen 12, Creatinine 0.59, Sodium Level 139, Potassium Level 3.8, Chloride Level 104, Carbon Dioxide Level 30, Calcium Level 7.9L, Magnesium Level 2.1 CBC/BMP Laboratory Tests 02/15/19 05:34 Red Blood Count 3.73 L, Mean Corpuscular Volume 93.0, Mean Corpuscular Hemoglobin 31.1, Mean Corpuscular Hemoglobin Concent 33.4, Red Cell Distribution Width 12.0, Calcium Level 7.9 L Allergies Coded Allergies: Contrast Media (Verified Allergy, Unknown, 02/11/19) reports allergy to MRI contrast SEAFOOD (Verified Allergy, Unknown, 02/06/19) latex (Verified Allergy, Unknown, 02/06/19) Home Medications Scheduled PRN Ibuprofen (Ibuprofen) 800 Mg Tablet, 800 MG PO Q6H PRN for PAIN, (Reported) Triamcinolone Acet (Triamcinolone Acetonide 0.1% Crm) 80 Gm Cream..g., 1 DOSE TOP BID PRN for HIVES/BLISTERS, (Reported) USES ON HANDS/ARMS NEEDED WHEN HIVES/BLISTERS APPEAR FROM TOO MUCH SUNLIGHT MARIANA OCHOA MD Feb 15, 2019 13:58
[2019-02-15 14:00] VITALS: BP 133/93
[2019-02-15 18:00] VITALS: BP 133/91
[2019-02-15] MEDS: ONDANSETRON 4MG/2ML VIAL (J2405) IV PRN (18:26)
[2019-02-15 22:00] VITALS: BP 117/81
--- NOTE | 2019-02-15 22:47 | REP ---
Clinical: Colon cancer. Technique: Axial noncontrast images from the thoracic inlet to the upper abdomen with coronal and sagittal re-formations. Comparison: None available. Findings: Minimal bibasilar linear fibroatelectatic changes are noted along with small left pleural effusion and associated passive atelectasis. Tiny nonspecific scattered densities and very subtle small areas of ground-glass opacity primarily noted in the left upper lobe lung zone are nonspecific. No discrete nodule or mass lesion. No pneumothorax. No obvious axillary, hilar, or mediastinal adenopathy. Mediastinum demonstrates normal thoracic aorta and heart/pericardium. Limited upper abdomen demonstrates a very subtle scattered hypodense areas within the liver which cannot be further characterized. Renal hypodensities are also noted which may represent cysts. The bilateral adrenal glands are normal. Impression: 1. Small left pleural effusion with trace atelectasis. Very subtle densities and small areas of ground-glass opacity noted in the left upper lung zone. These findings are nonspecific, but given the history of colon cancer, short-term follow-up may be warranted. 2. Limited evaluation of the upper abdomen demonstrates a very subtle hepatic hypodensities which are concerning and may warrant contrast enhanced CT of the abdomen and pelvis to exclude the possibility of metastatic disease. 3. Renal hypodensities possibly cysts may also be evaluated by CT or ultrasound. Electronically Signed by Cesar Davalos MD 02/15/2019 10:38 P
[2019-02-16] MEDS: NORCO, ANEXSIA 5/325MG TABLET (HYDROcodone/ACETAMINOPHEN) PO PRN ×2 (01:54→09:17)
[2019-02-16 02:00] VITALS: BP 103/59
[2019-02-16] MEDS: METOCLOPRAMIDE INJ 10MG/2ML VIAL (J2765) IV SCH ×2 (02:52→09:16)
[2019-02-16 05:53] LABS: HEMATOCRIT 34.9 % (36.0-47.0); HEMOGLOBIN 11.7 g/dl (12.0-15.5); MEAN CORPUSCULAR HEMOGLOBIN 32.1 pg (27.0-33.0); MEAN CORPUSCULAR HGB CONC 33.5 g/dl (32.0-36.5); MEAN CORPUSCULAR VOLUME 95.6 fl (80.0-96.0); PLATELET COUNT, AUTOMATED 270 10^3/uL (150-450); RED BLOOD COUNT 3.65 10^6/uL (4.00-5.40); WHITE BLOOD COUNT 8.1 10^3/uL (4.0-10.0)
[2019-02-16 06:00] VITALS: BP 105/57
[2019-02-16 06:12] LABS: BLOOD UREA NITROGEN 10 MG/DL (7-18); CALCIUM LEVEL 8.1 MG/DL (8.5-10.1); CARBON DIOXIDE LEVEL 27 MEQ/L (21-32); CHLORIDE LEVEL 105 MEQ/L (98-107); GLOMERULAR FILTRATION RATE > 60.0 (>58); GLUCOSE, FASTING 94 MG/DL (70-100); MAGNESIUM LEVEL 2.1 MG/DL (1.8-2.4); SODIUM LEVEL 137 MEQ/L (136-145)
[2019-02-16] MEDS ORDERED: LIDOCAINE 2% MDV 20 ML VIAL As Ordered ONE (06:40)
[2019-02-16] MEDS ORDERED: ceFAZolin 1GM INJ (J0690 PER 500MG) As Ordered ONE (06:40)
[2019-02-16] MEDS ORDERED: MIDAZOLAM INJ 2 MG/2 ML VIAL (J2250) As Ordered ONE (06:44)
[2019-02-16] MEDS ORDERED: fentaNYL 100 MCG/2 ML INJECTION (J3010) As Ordered ONE (06:44)
[2019-02-16] MEDS ORDERED: LIDOCAINE W/EPINEPHRINE 1% 20ML VIAL As Ordered ONE (06:58)
--- NOTE | 2019-02-16 08:12 | ROOPDOC ---
[facility] Report Of Operation Report of Operation DATE OF PROCEDURE: 02/16/19 PREPROCEDURE DIAGNOSES: Colon cancer, need for IV access. POSTPROCEDURE DIAGNOSES: Same. PROCEDURE: 1. Ultrasound-guided access right internal jugular vein 2. Placement of a 20 cm right IJ PowerPort SURGEON: Mariana Justice MD ANESTHESIA: 20 mL local anesthesia. Moderate intravenous sedation was supervised by Dr. Justice. The patient was independently monitored by registered nurse assigned to the Department of radiology using automated blood pressure, EKG, and pulse oximetry. The detailed conscious sedation is permanently start in the hospital information system. The following is a conscious sedation record: Start time 07:20, stop time 07:58, fentanyl 50 g IV, Versed 1 mg IV. INDICATION FOR PROCEDURE: Ms. Cardoza is a very pleasant 48-year-old patient recently diagnosed with colon cancer, and she is in need of long-term IV access for blood draws, IV medications, and IV fluids. Risks benefits and alternatives to PowerPort placement were explained at length to the patient and her . She was agreeable to proceed. Informed consent was obtained. INTERPRETATION: 1. PowerPort is in good position in the right chest, and there are no kinks in the catheter through the right jugular vein and the tip is freely mobile and the right atrium. 2. No pneumothorax is noted. PROCEDURE: The patient was brought to the angiographic suite in stable condition. Her right neck and chest were prepped and draped in a sterile fashion. Antibiotics and sedation were administered without complication. A timeout was performed. Local anesthesia was market research consultant to the skin and subcutaneous tissue over the right neck and a microneedle was used to access the jugular vein under ultrasound guidance. A wire was passed through this access under fluoroscopic guidance. The needle was removed and a small incision was made at the access site. The micro-sheath was placed over the wire and the wire was exchanged for a J-wire through this access under fluoroscopic guidance. The wire was secured to the draped. Local anesthesia was market research consultant to skin and subcutaneous tissue in the right chest in the area of the pocket and up over the clavicle to tunneled catheter to the jugular access site. A small incision was made on the right chest and blunt dissection was used to create a pocket distal to this over the rib. We then measured the catheter and it was cut to 20 cm. The catheter was attached to the port in the port was inserted into the pocket. The catheter was then tunneled from the pocket to the jugular access site. A quick image was obtained to make sure there were no kinks in the catheter in the pocket. We then removed the micro-sheath and over the wire using a Seldinger technique we placed a peel-away sheath. The inner cannula and wire were removed, and the tip of the catheter was passed through the peel-away sheath into the central system under fluoroscopic guidance. We removed the peel-away sheath. We accessed the port through the skin and it easily timothy back and flushed and was heparin locked. We then irrigated the access site of the neck in the pocket with saline. Good hemostasis was noted. Final image was obtained and the port was in good position with no kinks in the catheter and no pneumothorax was present. The tip was freely mobile in the proximal right atrium. The jugular access site was closed with a deep Vicryl suture and a superficial interrupted Monocryl suture. Dermabond was placed at the skin. Port pocket incision was closed with a tapering Vicryl suture interrupted deep dermal Vicryl sutures to approximate the skin and a running subcuticular Monocryl suture to close the skin. Dermabond was used as a final dressing. The port is stable within the pocket. The patient was then taken back to recovery in stable condition and will be returned to her room with plans for discharge later today. ESTIMATED BLOOD LOSS: Approximately 5 mL. COMPLICATIONS: None. PLAN: It is okay to use PowerPort for blood draws and infusions of IV medicatio ns and fluids. MARIANA JUSTICE MD Feb 16, 2019 08:12
[2019-02-16] MEDS ORDERED: HYDR-4571 PO (08:30)
[2019-02-16] MEDS ORDERED: SIME80TA PO (08:40)
[2019-02-16 09:15] VITALS: BP 124/73
[2019-02-16] MEDS: ENOXAPARIN 40 MG/0.4 ML SYRINGE (J1650) SC SCH (09:16)
[2019-02-16] MEDS: DICLOFENAC EPOLAMINE 1.3 % PATCH TOP SCH (09:17)
--- NOTE | 2019-02-16 18:22 | DSES ---
DATE OF ADMISSION: 02/07/2019 DATE OF DISCHARGE: 02/16/2019 PRIMARY CARE PROVIDER: Adeline Nicole NP ATTENDING PHYSICIAN: Dr. Kem Velasco HISTORY: This is a 48-year-old female patient who presented to [facility] Emergency Room with abdominal pain that she initially reported began the morning of her presentation. Initially, it felt like gas. She tried to walk it off, took some Gas-X and an enema without relief. She states that she did use bathroom and had a bowel movement prior to presentation but still felt as though she had a large amount of stool trapped in her abdomen. On evaluation in the emergency room, CT scan of the abdomen and pelvis showed thickening in the proximal transverse colon at the hepatic flexure which looked like an apple core lesion causing obstruction and dilatation of the cecum and ascending colon with large fecal loading, haziness surrounding the proximal process with multiple small lymph nodes. This was concerning for a neoplastic process as well as possible infection. The patient was admitted to the hospital for further management and monitoring. Dr. Silver was consulted. He took the patient to the operating room initially for colonoscopy. Initial colonoscopy revealed a large obstructing mass in the proximal transverse colon that was circumferential and almost completely obstructing. He could see beyond it or see an opening to pass through it. He was able to obtain a couple of biopsies, otherwise discontinued colonoscopy with the plan for hemicolectomy. The patient went to the operating room for hemicolectomy on 02/12/[address] Silver and Dr. Small for assistance. Laparoscopic lysis of adhesions followed by laparotomy with transverse colon resection and primary anastomosis was performed. The patient was then returned to her room where she has been recuperating and doing well. She has been ambulatory. She began passing gas and subsequently has had a bowel movement. Her diet was advanced from clears to full liquids and now a regular diet. Her pain has been well-controlled. Pathology has revealed negative for malignancy of the peritoneal fluid. Transverse colon resection reveals poorly-differentiated adenocarcinoma extending to within 1 mm of the serosa, metastatic adenocarcinoma in 11 of 24 pericolonic lymph nodes. Biopsy of the transverse colon reveals rare highly atypical glandular cells. The patient underwent renal ultrasound which suggests complex cysts of bilateral kidneys, essentially unchanged compared to December of 2017. She underwent an MRI of the abdomen which is consistent with new 18 mm subcapsular lesion of the right posterior hepatic lobe favored to represent metastases, mild ascites, small bilateral pleural effusion. She was also noted at that time to have the obstructing neoplasm of the midi transverse colon adjacent with probable metastatic lymphadenopathy. She will likely benefit from a dedicated liver MRI. CT scan of the chest was performed yesterday. A very small left pleural effusion with trace atelectasis, very subtle densities and small areas of ground-glass opacity noted in the left upper lung. These findings are nonspecific but given history of colon cancer, short-term followup is necessary. Limited evaluation of the upper abdomen demonstrating very subtle hepatic hypodensities which are concerning and may warrant contrast-enhanced CT of the abdomen and pelvis to exclude the possibility of metastatic disease. Please note abdomen MRI as dictated above. Renal hypodensities possibly cysts may also be evaluated by CT of abdomen. Also please note that this was performed using renal ultrasound previous in the admission and documented above. DISCHARGE DIAGNOSIS: Includes: Metastatic adenocarcinoma of the colon, status post hemicolectomy with metastases to the liver and lymph nodes. She has undergone port placement this morning and will followup with Dr. Silver as well as oncology as an outpatient. DISCHARGE MEDICATIONS: Include: - hydrocodone 5/325 one tablet every six hours as needed for mild to moderate pain - simethicone 80 mg every six hours as needed for gas - ibuprofen 800 mg every eight hours as needed for pain - triamcinolone topically twice daily for hives or blisters as needed Her activity should be as tolerated. Her diet is regular. She will followup with Adeline Nicole NP in one week.
[2019-02-17] MEDS ORDERED: PRED50TA PO (12:14)
[2019-02-17] MEDS ORDERED: LIDO2.5C15 TOP (12:19)
== END 2019-02-16 11:12 | disposition home or self-care (01) | DRG 221 ==
LOC: M ED 18:52 → M ED INP 02-07 00:45 → M MSPAV 02-07 02:04
PROVIDERS: ADMIT Internal Medicine; ATTEND Family Medicine
PROC: 0DBL0ZZ Excision of Transverse Colon, Open Approach (ICD-10-PCS; 2019-02-07)
PROC: 07BB0ZX Excision of Mesenteric Lymphatic, Open Approach, Diagnostic (ICD-10-PCS; 2019-02-07)
PROC: 0DBL8ZX Excision of Transverse Colon, Via Natural or Artificial Opening Endoscopic, Diagnostic (ICD-10-PCS; principal; 2019-02-09 09:00)
PROC: 02H633Z Insertion of Infusion Device into Right Atrium, Percutaneous Approach (ICD-10-PCS; 2019-02-16)
PROC: 0JH63XZ Insertion of Tunneled Vascular Access Device into Chest Subcutaneous Tissue and Fascia, Percutaneous Approach (ICD-10-PCS; 2019-02-16)
DX: C18.4 Malignant neoplasm of transverse colon (principal); I47.2 Ventricular tachycardia; C78.7 Secondary malignant neoplasm of liver and intrahepatic bile duct; N28.1 Cyst of kidney, acquired; C77.2 Secondary and unspecified malignant neoplasm of intra-abdominal lymph nodes; E16.2 Hypoglycemia, unspecified; D18.03 Hemangioma of intra-abdominal structures; F17.210 Nicotine dependence, cigarettes, uncomplicated; Z79.899 Other long term (current) drug therapy; Z90.49 Acquired absence of other specified parts of digestive tract; Z90.710 Acquired absence of both cervix and uterus; Z53.31 Laparoscopic surgical procedure converted to open procedure

== ENCOUNTER → 2019-02-21 | Outpatient (CLI) | payer OTHER ==
[~2019-02-21] MED LIST changes: +AUGM875T28 PO; +BENA25CA4 PO; +HYDR-4571 PO; +IBUP80TA PO; +LIDO2.5C15 TOP; +MAGICMW SSP; +OLAN10TA2 PO; +OXYC-517 PO; +OXYC15TA76 PO; +PRED50TA; +PRED50TA PO; +PROC10TA4 PO; -PROHANCE 279.3MG/ML 15ML VIAL (A9576) As Ordered ONE; +SIME80TA PO; +TRIA1CR80 TOP; +ZOFR8TAB24 PO
--- NOTE | 2019-02-21 14:50 | REP ---
PET/CT: HISTORY: Staging colon cancer. Stage IV transverse colon. Status post right and transverse colectomy. COMPARISONS: Comparison CT and MRI studies of the abdomen and chest are reviewed from February 2019. TECHNIQUE: 46 minutes following the intravenous injection of a 8.45 mCi dose of F-18 FDG, three-dimensional PET scintigraphy is acquired from the skull base to the proximal thighs. Triplanar noncontrast CT scanning is acquired through the same anatomic range for attenuation correction, and image registration with scan parameters optimized to minimize radiation exposure to the patient. PET scintigraphy and CT datasets were fused and displayed on a workstation with multiplanar and projection display capability. PET/CT FINDINGS: Hypermetabolic uptake is confirmed in the right posterior liver lesion seen by MRI and CT study, consistent with this being a hepatic metastasis. Maximum standard uptake value here is 9.86. The hypermetabolic area measures 3.0 cm in greatest diameter. No other hypermetabolic liver lesion is appreciated. There is mildly hypermetabolic uptake noted along the medial aspect of the head of the pancreas and/or adjacent descending duodenum. This is of uncertain significance. It is probably normal gastrointestinal mucosal uptake since MRI and CT study show no evidence of adenopathy or mass in this location. Maximum standard uptake value here is 4.48. There is minimally increased uptake along the laparotomy site in the anterior abdominal wall, consistent with postoperative hypermetabolic uptake. Maximum standard uptake value here is 6.3. No definite intra-abdominal hypermetabolic adenopathy. There is no abnormal hypermetabolic uptake in the chest. There is no abnormal skeletal hypermetabolic uptake. Head and neck soft tissues are unremarkable. There is a right-sided [id number] catheter. IMPRESSION: There is a hypermetabolic 3 cm liver lesion in the right lobe posteriorly. Equivocal FDG accumulation in the pancreatic head along the descending duodenum probably normal bowel. Postoperative uptake in the anterior abdominal wall. No other abnormal hypermetabolic uptake. Electronically Signed by Hank Kent MD 02/21/2019 03:03 P
== END ==
LOC: M PLARAD 11:15
PROVIDERS: ATTEND Internal Medicine Medical Oncology
DX: C18.4 Malignant neoplasm of transverse colon (principal); K76.89 Other specified diseases of liver
CPT/HCPCS: 78815; A9552

== ENCOUNTER → 2019-03-02 | Outpatient (CLI) | payer OTHER ==
[~2019-03-02] MED LIST changes: -AUGM875T28 PO; -BENA25CA4 PO; +ISOVUE-370 76% 100ML VIAL (Q9967) As Ordered ONE; -MAGICMW SSP; -OLAN10TA2 PO; -PRED50TA
--- NOTE | 2019-03-16 04:26 | REP ---
Clinical: History of colon cancer. Technique: Axial contrast enhanced images from the thoracic inlet to the upper abdomen with coronal and sagittal re-formations. Comparison: 05/27. Findings: The lung bernardo are relatively symmetric and well-aerated. No consolidation, significant nodule or mass lesion appreciated. Previously noted small left pleural effusion with trace atelectasis and subtle ground-glass opacities have resolved. No acute effusion. No pneumothorax. Tracheobronchial tree is patent. No adenopathy. Mediastinum demonstrates normal thoracic aorta, pulmonary vasculature and heart/pericardium. Surrounding musculoskeletal structures are intact without focal abnormality. Limited evaluation of the upper abdomen demonstrates normal bilateral adrenal glands as well as few scattered small hepatic hypodensities which may reflect cysts and 4.2 cm simple appearing left renal cyst. Impression: 1. No acute mediastinal or pleuroparenchymal process. Previously noted small left effusion, trace atelectasis and ground-glass opacities have resolved. 2. Limited upper abdominal findings as detailed above. Electronically Signed by Cesar Davalos MD 03/16/2019 04:17 A
== END ==
LOC: M RAD 15:52
PROVIDERS: ATTEND Internal Medicine Medical Oncology
DX: C18.9 Malignant neoplasm of colon, unspecified (principal)
CPT/HCPCS: 71260; Q9967

== ENCOUNTER → 2019-03-13 | Outpatient (CLI) | payer OTHER ==
[~2019-03-13] MED LIST changes: -ISOVUE-370 76% 100ML VIAL (Q9967) As Ordered ONE; +MAGICMW SSP
--- NOTE | 2019-03-13 15:45 | REP ---
NUCLEAR EQUILIBRIUM GATED CARDIAC BLOOD POOL SCAN: Following the intravenous administration of 25.0 mCi of technetium-99m in vitro labeled red blood cells using the Ultratag method gated imaging is performed in multiple projections. Cine images are constructed as well as static images. There is symmetrical left ventricular wall motion. Activity is measured in end diastole and end systole and the left ventricular ejection fraction is calculated to be 69.8%. Electronically Signed by Aroldo Omalley MD 03/15/2019 07:54 A
== END ==
LOC: M RAD 12:55
PROVIDERS: ATTEND Internal Medicine
DX: Z01.810 Encounter for preprocedural cardiovascular examination (principal)
CPT/HCPCS: 78472; A9560

== ENCOUNTER → 2019-08-29 | Outpatient (CLI) | payer OTHER ==
[~2019-08-29] MED LIST changes: +AUGM875T28 PO; +BENA25CA4 PO; +GASTROGRAFIN SOLUTION 30ML (Q9963) As Ordered ONE; +ISOVUE-370 76% 100ML VIAL (Q9967) As Ordered ONE; +OLAN10TA2 PO; +PRED50TA
--- NOTE | 2019-08-30 04:08 | REP ---
Clinical: Colon cancer. Technique: Axial contrast enhanced images from the thoracic inlet to the upper abdomen with coronal and sagittal re-formations using 100 ml Isovue 370 intravenous contrast material. Comparison: 05/29/2019, 03/02/2019. Findings: The bilateral lung bernardo are well-aerated and clear. No consolidation, significant nodule or mass lesion appreciated. No pleural effusion. No pneumothorax. Tracheobronchial tree is patent. No axillary, hilar, or mediastinal adenopathy is appreciated. Further evaluation of the mediastinum demonstrates normal thoracic aorta, pulmonary vasculature and heart/pericardium. Surrounding musculoskeletal structures are intact. [id number] identified with tip in the SVC. Impression: No acute mediastinal or pleuroparenchymal process appreciated. No evidence for metastatic disease. Electronically Signed by Cesar Davalos MD 08/30/2019 04:00 A
--- NOTE | 2019-08-30 04:17 | REP ---
Clinical: Colon cancer. Status post partial liver resection. Technique: Axial contrast enhanced images from the lung bases to the pubic symphysis using oral (per protocol) and 100 ml Isovue 370 intravenous contrast material with delayed images of the abdomen. Coronal and sagittal re-formations obtained. Comparison: 05/29/2019. Findings: The patient is known to be status post partial resection along the posterior segment of the right hepatic lobe where a small subcapsular fluid collection is now identified measuring roughly 4.7 cm in craniocaudal length and 2.1 cm in maximal width. No associated perihepatic inflammatory stranding is appreciated. Liver demonstrates few scattered small hypodensities which likely represent cysts and hemangioma based on appearance on delayed imaging. Spleen, pancreas, gallbladder, bilateral adrenal glands and kidneys are essentially normal/stable. Bilateral simple renal cysts noted measuring up to 4 cm in the upper pole left kidney. Evidence for prior partial bowel resection. There is no acute bowel obstruction or obvious focal inflammatory process. Pelvis demonstrates normal bladder and evidence to suggest prior hysterectomy. No ascites. No free air. No obvious intraperitoneal or retroperitoneal adenopathy. No obvious mass lesion. Abdominal aorta and vasculature appear relatively normal. Musculoskeletal structures demonstrate degenerative changes and possible post traumatic changes involving the pelvis which appears stable. Impression: 1. Partial hepatic resection with small residual subcapsular fluid collection as described above. 2. Small presumed benign hepatic cysts and hepatic hemangioma along with benign renal cysts. Findings are stable as compared to prior examination. 3. Evidence for prior partial bowel resection. Electronically Signed by Cesar Davalos MD 08/30/2019 04:08 A
== END ==
LOC: M RAD 11:52
PROVIDERS: ATTEND Internal Medicine Medical Oncology
DX: C18.9 Malignant neoplasm of colon, unspecified (principal); K76.89 Other specified diseases of liver; D18.03 Hemangioma of intra-abdominal structures; N28.1 Cyst of kidney, acquired; Z90.49 Acquired absence of other specified parts of digestive tract
CPT/HCPCS: 71260; 74177; Q9963; Q9967

== ENCOUNTER → 2019-11-17 | Outpatient (CLI) | payer OTHER ==
[~2019-11-17] MED LIST changes: -GASTROGRAFIN SOLUTION 30ML (Q9963) As Ordered ONE; -ISOVUE-370 76% 100ML VIAL (Q9967) As Ordered ONE
--- NOTE | 2019-11-17 12:44 | REP ---
CHEST, TWO VIEWS: Two views of the chest are preformed and compared to a prior CT of 08/29/2019. There is new peripheral infiltrate in the posterolateral right lower lobe. There is a small right pleural effusion. The left lung is clear. The heart is normal in size. Mediastinal silhouette is unchanged. Right central venous catheter is again noted with the tip in the superior vena cava. Visualized osseous structures are unremarkable. IMPRESSION: Peripheral right lower lobe infiltrate with small right effusion. No infiltrate on the left. Electronically Signed by Aroldo Omalley MD 11/17/2019 01:07 P
== END ==
LOC: M CLY 11:30
PROVIDERS: ATTEND Family Medicine
DX: R04.2 Hemoptysis (principal); R91.8 Other nonspecific abnormal finding of lung field; J90 Pleural effusion, not elsewhere classified

== ENCOUNTER → 2019-11-17 | Outpatient (CLI) | payer OTHER ==
--- NOTE | 2019-11-17 15:02 | REP ---
REASON: Dyspnea and hemoptysis. Prior plain film examination of the chest showed a patchy opacity in the right lower lobe. After the inhalation of 1 millicurie of technetium 99m DTPA aerosol, a ventilation lung study was performed. After the intravenous administration of 5.4 millicuries of technetium 99m MAA, a perfusion lung study was performed. There is a slightly matching right lower lobe defect, however, the perfusion portion of the exam is of significantly lower counts than the ventilation portion. No other significant defects are noted. IMPRESSION: There is a somewhat but not completely matching defect in the right lower lobe where the patient has a known plain film opacity. This puts the findings in the indeterminate category at this time. It is recommended that CT of the chest with contrast performed as a pulmonary angio study for further evaluation since pulmonary embolus cannot be ruled out. Electronically Signed by Kj Chaney DO 11/17/2019 03:10 P
== END ==
LOC: M RAD 12:46
PROVIDERS: ATTEND Family Medicine
DX: R04.2 Hemoptysis (principal)
CPT/HCPCS: 78582; A9540; A9567

== ENCOUNTER → 2019-11-17 | Outpatient (REF) | payer OTHER ==
[2019-11-17 13:11] LABS: BASO # 0.1 10^3/uL (0.0-0.2); BASO % 0.5 % (0.0-1.0); EOS # 0.1 10^3/uL (0.0-0.5); EOS % 1.2 % (0.0-3.0); HEMATOCRIT 39.2 % (36.0-47.0); HEMOGLOBIN 12.8 g/dl (12.0-15.5); LYMPH # 1.6 10^3/uL (1.5-5.0); LYMPH % 16.2 % (24.0-44.0); MEAN CORPUSCULAR HEMOGLOBIN 31.1 pg (27.0-33.0); MEAN CORPUSCULAR HGB CONC 32.7 g/dl (32.0-36.5); MEAN CORPUSCULAR VOLUME 95.4 fl (80.0-96.0); MONO # 0.8 10^3/uL (0.0-0.8); MONO % 7.4 % (0.0-5.0); NEUTROPHILS # 7.5 10^3/uL (1.5-8.5); NEUTROPHILS % 74.1 % (36.0-66.0); PLATELET COUNT, AUTOMATED 252 10^3/uL (150-450); RED BLOOD COUNT 4.11 10^6/uL (4.00-5.40); WHITE BLOOD COUNT 10.1 10^3/uL (4.0-10.0)
[2019-11-17 13:36] LABS: BLOOD UREA NITROGEN 8 MG/DL (7-18); CALCIUM LEVEL 8.4 MG/DL (8.5-10.1); CARBON DIOXIDE LEVEL 30 MEQ/L (21-32); CHLORIDE LEVEL 102 MEQ/L (98-107); CREATININE FOR GFR 0.87 MG/DL (0.55-1.30); GLOMERULAR FILTRATION RATE > 60.0 (>58); GLUCOSE, FASTING 75 MG/DL (70-100); POTASSIUM SERUM 4.1 MEQ/L (3.5-5.1); SODIUM LEVEL 136 MEQ/L (136-145)
== END ==
LOC: M SFHCCLAY 10:58
PROVIDERS: ATTEND Family Medicine
DX: R04.2 Hemoptysis (principal)

== ENCOUNTER → 2019-11-20 | Outpatient (CLI) | payer OTHER ==
[~2019-11-20] MED LIST changes: +ISOVUE-370 76% 100ML VIAL (Q9967) As Ordered ONE; +OXYC-1 PO; -OXYC15TA76 PO
--- NOTE | 2019-11-20 13:13 | REP ---
REASON FOR EXAM: Dyspnea and hemoptysis. Comparison CT is 08/29/2019. CONTRAST: 100 mL Isovue 370. There is excellent visualization of the pulmonary arterial vasculature. Filling defects are seen in the lower lobe pulmonary arteries bilaterally consistent with pulmonary emboli. There is no mediastinal or hilar adenopathy. There is a small right pleural effusion. The imaged upper abdomen and imaged osseous structures are unchanged from the prior exam. Evaluation of the lung field shows patchy right lower lobe opacities representing a change from the prior exam. IMPRESSION: 1. Small bilateral lower lobe pulmonary emboli. 2. Small right pleural effusion. 3. Patchy right lower lobe opacities which need to be correlated clinically with appropriate followup to ensure resolution. Pneumonia versus atelectasis versus possible early pulmonary infarction. Electronically Signed by Kj Chaney DO 11/20/2019 01:53 P
== END ==
LOC: M RAD 10:55
PROVIDERS: ATTEND Family Medicine
DX: R04.2 Hemoptysis (principal); R91.8 Other nonspecific abnormal finding of lung field; J90 Pleural effusion, not elsewhere classified
CPT/HCPCS: 71275; Q9967

== ENCOUNTER → 2020-01-16 | Outpatient (CLI) | payer OTHER ==
[~2020-01-16] MED LIST changes: +GASTROGRAFIN SOLUTION 30ML (Q9963) As Ordered ONE; -ISOVUE-370 76% 100ML VIAL (Q9967) As Ordered ONE; +ISOVUE-370 76% 100ML VIAL As Ordered ONE; +LOVE1INJ SC
--- NOTE | 2020-01-16 14:15 | REP ---
REASON: History of colon cancer. All priors reviewed, the latest 08/29/2019. CONTRAST: 100 mL Isovue 370. The patient is status post partial hepatectomy. The small subcapsular fluid collection seen at the resection site involving the posterior segment of the right lobe of the liver has significantly reduced. The liver is otherwise unchanged. No new enhancing abnormalities have developed. The gallbladder, spleen, pancreas, adrenal glands, and kidneys are unchanged. There are bilateral renal cysts status quo. The abdominal aorta and para-aortic regions are unchanged. There is no free fluid or free air in the abdomen. The bowel loops and their mesenteries are essentially unchanged. No intra-abdominal mass or adenopathy has developed. CT PELVIS: No mass or adenopathy has developed. There is no free fluid or free air. The bowel loops and their mesenteries are essentially unchanged. BONE Window technique throughout the exam shows no significant changes from prior exams. IMPRESSION: Essentially stable CT examination of the abdomen and pelvis with the exception of improved findings involving the liver as described above. There is no evidence of acute intra-abdominal or intrapelvic disease. For a description of the lung bases, please see the chest CT report made the same day. Electronically Signed by Kj Chaney DO 01/16/2020 02:24 P
--- NOTE | 2020-01-16 14:33 | REP ---
REASON: History of colon carcinoma. All prior chest CTs were reviewed, the latest of which is dated 11/20/2019. CONTRAST: 100 mL Isovue 370. There is no mediastinal or hilar adenopathy. The tip of the Mediport device is in the superior vena cava near the right atrial superior vena cava junction. No pleural or pericardial effusions have developed. This examination cannot access for pulmonary emboli as the prior exam of 11/20/2019 has. Since today's exam is a standard contrast enhanced chest CT rather than a CT angio chest. The thoracic aorta is again seen to be within normal limits. The small right pleural effusion seen on the latest prior has resolved. Bone window technique through the examination shows the osseous structures to be stable and intact. Evaluation of the lung bernardo shows marked and significant improvement in the mass-like density seen previously in the right lower lobe at least partially obscured by the right pleural effusion. That density does, however, represent a change from the latest prior chest CT of 08/29/2019. Today, it measures 1.9 x 1.2 x 2.4 cm. Just superior to that, there is a second smaller irregular density with slight cavitation. That nodule measures 1.2 x 1 x 1.5 cm. It was not present on the 08/29/[address] and whether or not it was present on the 11/20/2019 CT cannot be stated with certainty due to the effusion present on that prior exam. No other abnormal nodules, masses, or opacities are present. IMPRESSION: 1. Right lung nodules as described above. Consider CT/PET if clinically relevant. 2. Other findings as described above. Electronically Signed by Kj Chaney DO 01/17/2020 10:46 A
== END ==
LOC: M RAD 09:13
PROVIDERS: ATTEND Internal Medicine Medical Oncology
DX: C18.9 Malignant neoplasm of colon, unspecified (principal)
CPT/HCPCS: 71260; 74177; J1642; Q9963; Q9967

== ENCOUNTER → 2020-02-06 | Outpatient (CLI) | payer OTHER ==
[~2020-02-06] MED LIST changes: -GASTROGRAFIN SOLUTION 30ML (Q9963) As Ordered ONE; -ISOVUE-370 76% 100ML VIAL As Ordered ONE
--- NOTE | 2020-02-07 09:49 | REP ---
PET/CT: HISTORY: Transverse colon carcinoma. Restaging. Status post left hemicolectomy, chemotherapy, partial hepatectomy. COMPARISONS: Comparison PET-CT study February 21, 2019. Comparison CT study January 16, 2020. TECHNIQUE: 46 minutes following the intravenous injection of a 8.39 mCi dose of F-18 FDG, three-dimensional PET scintigraphy is acquired from the skull base to the proximal thighs. Triplanar noncontrast CT scanning is acquired through the same anatomic range for attenuation correction, and image registration with scan parameters optimized to minimize radiation exposure to the patient. PET scintigraphy and CT datasets were fused and displayed on a workstation with multiplanar and projection display capability. PET/CT FINDINGS: Head and neck soft tissues are unremarkable. There is mildly hypermetabolic uptake in a linear appearing area of post inflammatory fibrosis in the right lower lobe. Maximum standard uptake value 3.77. This is much improved from the November 20, 2019 and is somewhat improved when compared with the January 16, 2020 CT studies. This appears to be postinflammatory. No other abnormal hypermetabolic uptake is seen in the thorax. The previously noted hypermetabolic liver lesion has been resected. No abnormal hypermetabolic uptake is seen in the liver today. No other abnormal hypermetabolic uptake is seen in the abdomen or pelvis. IMPRESSION: No suspicious abnormality noted. Linear postinflammatory mildly hypermetabolic uptake in an improving area of pleuroparenchymal scarring in the right lower lobe. Status post resection of previously noted liver metastasis. Electronically Signed by Hank Kent MD 02/07/2020 10:55 A
== END ==
LOC: M PLARAD 15:24
PROVIDERS: ATTEND Internal Medicine Medical Oncology
DX: C18.4 Malignant neoplasm of transverse colon (principal)
CPT/HCPCS: 78815; A9552

== ENCOUNTER → 2020-03-13 | Outpatient (CLI) | payer OTHER ==
--- NOTE | 2020-05-01 08:40 | REP ---
RIGHT SHOULDER SERIES HISTORY: Pain. TECHNIQUE: Three views right shoulder performed. This study was performed 03/13/2020, and was not available for interpretation and dictation until 03/22/2020, due to catastrophic computer failure at the facility. FINDINGS: There is no acute fracture or dislocation. There is moderate narrowing of the acromioclavicular joint. There is mild narrowing at the glenohumeral joint. Right MediPort catheter is seen with the tip in the superior vena cava. There are no other significant findings. IMPRESSION: Arthritic changes with no acute findings. MTDD
== END ==
LOC: M RAD 15:25
PROVIDERS: ATTEND Nurse Practitioner Family
DX: M19.011 Primary osteoarthritis, right shoulder (principal)

== ENCOUNTER 2020-03-27 06:51 | Day surgery (SDC) | payer OTHER ==
[~2020-03-27] VITALS: Ht 160 cm; Wt 55.3 kg
[2020-03-27] MEDS ORDERED: NS 1,000 ML IV ONE (07:30)
[2020-03-27] MEDS ORDERED: LIDOCAINE 2% 100MG/5ML SDV (FOR ANES.) As Ordered ONE (08:10)
[2020-03-27] MEDS ORDERED: propofoL 200 MG/20 ML VIAL As Ordered ONE (08:10)
[2020-03-27 08:51] VITALS: BP 100/68
--- NOTE | 2020-04-17 11:35 | ROOR ---
Patient Name: Radha Cardoza Procedure Date: 03/27/2020 7:33 AM Date of : 1970 Age: 49 Room: [facility] Gender: Female Note Status: Permit Agent Override Procedure: Colonoscopy Indications: High risk colon cancer surveillance: Personal history of colon cancer Providers: DO Drea Murphy MD: Adeline Nicole NP Requesting Provider: Medicines: Propofol per Anesthesia Complications: No immediate complications. Procedure: Pre-Anesthesia Assessment: - Prior to the procedure, a History and Physical was performed, and patient medications and allergies were reviewed. The patient is competent. The risks and benefits of the procedure and the sedation options and risks were discussed with the patient. All questions were answered and informed consent was obtained. Patient identification and proposed procedure were verified by the physician, the nurse, the farmworkers and the medical service technician in the endoscopy suite. Mental Status Examination: alert and oriented. Airway Examination: normal oropharyngeal airway and neck mobility. Respiratory Examination: clear to auscultation. CV Examination: normal. Prophylactic Antibiotics: The patient does not require prophylactic antibiotics. Prior Anticoagulants: The patient has taken no previous anticoagulant or antiplatelet agents. ASA Grade Assessment: II - A patient with mild systemic disease. After reviewing the risks and benefits, the patient was deemed in satisfactory condition to undergo the procedure. The anesthesia plan was to use monitored anesthesia care (MAC). Immediately prior to administration of medications, the patient was re-assessed for adequacy to receive sedatives. The heart rate, respiratory rate, oxygen saturations, blood pressure, adequacy of pulmonary ventilation, and response to care were monitored throughout the procedure. The physical status of the patient was re-assessed after the procedure. The Colonoscope was introduced through the anus and advanced to the ileocolonic anastomosis. The colonoscopy was performed without difficulty. The patient tolerated the procedure well. Findings: Non-bleeding internal hemorrhoids were found during retroflexion. The hemorrhoids were Grade II (internal hemorrhoids that prolapse but reduce spontaneously). The exam was otherwise without abnormality. Impression: - Non-bleeding internal hemorrhoids. - The examination was otherwise normal. - No specimens collected. Recommendation: - Patient has a contact number available for emergencies. The signs and symptoms of potential delayed complications were discussed with the patient. Return to normal activities tomorrow. Written discharge instructions were provided to the patient. - Repeat colonoscopy in 1 year for surveillance. - Return to my office PRN. Aroldo Silver DO 03/27/2020 8:25:18 AM Number of Addenda: 0 Note Initiated On: 03/27/2020 7:33 AM Estimated Blood Loss: Estimated blood loss: none.
[2020-05-13] MEDS ORDERED: PRED50TA PO (16:09)
--- NOTE | 2020-05-17 06:40 | RO ---
DATE OF OPERATION: 03/27/2020 PREOPERATIVE DIAGNOSIS: Postoperative colon cancer. POSTOPERATIVE DIAGNOSIS: Postoperative colon cancer. PROCEDURE: Removal of Metaport. SURGEON: Aroldo Silver DO MANAGER ADVANCED: None. ANESTHESIA: IV sedation with 5 ml of local COMPLICATIONS: None. ESTIMATED BLOOD LOSS: 2 ml. INDICATION FOR PROCEDURE: The patient is a 49-year-old female, status post preoperative colon cancer. She is in remission. No longer needs her Metaport in place. Recommendation is to proceed with removal during her sedation for her colonoscopy. Risks and benefits of procedure not limited to, but including bleeding, infection, damage to surrounding structures and the need for further surgery discussed to the patient, informed consent was obtained and procedure was planned. PROCEDURE: Prior to her colonoscopy in OPP room, her right neck and upper chest were sterilely prepped and draped with Betadine. Next time-out was done and confirmed for outpatient procedure. Following local was injected in the previous skin incision. The 3 cm incision was then created using15 blade scalpel. The capsule surrounding the Metaport was opened up. The catheter was grabbed with a pair of hemostats. The Metaport was then carefully dissected free and removed from the capsule. The port and catheter were then completely removed intact. Next, a [id number] 3-0 Vicryl suture was placed around the tunnel surrounding the capsule. Once that was completed, there were no signs of any bleeding. The subcutaneous tissues were then approximated in a two layer repair with one layer of interrupted 3-0 Vicryl sutures followed by a layer of running 4-0 Vicryl sutures. Once that was completed, the area was cleaned and dried. Steri-Strips, 2 x 2 and Decaderm were applied. MTDD
== END 2020-03-27 08:53 | disposition home or self-care (01) ==
LOC: M OPP 06:51
PROVIDERS: ATTEND Surgery
DX: Z85.038 Personal history of other malignant neoplasm of large intestine (principal); K64.1 Second degree hemorrhoids; Z08 Encounter for follow-up examination after completed treatment for malignant neoplasm; Z92.21 Personal history of antineoplastic chemotherapy; Z79.899 Other long term (current) drug therapy; Z86.711 Personal history of pulmonary embolism; Z87.891 Personal history of nicotine dependence; Z88.2 Allergy status to sulfonamides; Z91.013 Allergy to seafood; Z91.040 Latex allergy status; Z91.041 Radiographic dye allergy status

== ENCOUNTER → 2020-05-15 | Outpatient (CLI) | payer OTHER ==
[~2020-05-15] MED LIST changes: +ISOVUE-370 76% 100ML VIAL As Ordered ONE
--- NOTE | 2020-05-18 13:51 | REP ---
CT CHEST WITH INTRAVENOUS (IV) CONTRAST HISTORY: Colon carcinoma. Lung lesions. COMPARISON: Chest CT study 01/16/2020. CT CONTRAST DOSE: 75 mL of intravenous Isovue-[address] FINDINGS: Preliminary digital inspector floor radiograph is unremarkable. There is no evidence of hilar or mediastinal mass or adenopathy. No pleural or pericardial effusion is seen. The 01/16/2020 prior study showed nodular densities in the right lower lobe. These are either improved or resected. There is linear fibrosis in their original location in the right lower lobe on todays CT study. No new pulmonary nodule is appreciated. Lung bernardo are otherwise clear. No axillary or other extrathoracic mass or adenopathy is observed. No adrenal abnormality is seen. There are three low density lesions in the liver the largest of which is 10 mm in diameter. These are unchanged from the 01/16/2020 study. The patient is status post liver mass resection as well and there is contour indentation along the right posterior liver margin. There are cysts in both kidneys. These are unchanged. IMPRESSION: No evidence of mass or adenopathy. No new pulmonary nodule is seen. Linear fibrosis right lower lobe in the location where prior CT study showed nodular opacities. MTDD
== END ==
LOC: M RAD 14:25
PROVIDERS: ATTEND Internal Medicine Medical Oncology
DX: C18.9 Malignant neoplasm of colon, unspecified (principal); J84.10 Pulmonary fibrosis, unspecified; K76.89 Other specified diseases of liver; N28.1 Cyst of kidney, acquired
CPT/HCPCS: 71260; Q9967

== ENCOUNTER → 2020-08-05 | Outpatient (CLI) | payer OTHER ==
[~2020-08-05] MED LIST changes: +AMBI5TAB PO; +GASTROGRAFIN SOLUTION 30ML (Q9963) As Ordered ONE
--- NOTE | 2020-08-05 11:13 | REP ---
INDICATION: COLON CA. COMPARISON: 01/16/2020 TECHNIQUE: Axial contrast-enhanced images from the lung bases to the pubic symphysis using oral and 100 cc Isovue 370 intravenous contrast material. Delayed images of the abdomen along with coronal and sagittal reformations obtained. This CT examination was performed using the following dose reduction techniques: Automated exposure control, adjustment of mA and/or kv according to the patient's size, and the use of iterative reconstruction technique. FINDINGS: Lung bases demonstrate decreased density and scarring at the right base when compared to prior examination. Liver demonstrates stable hepatic hypodensities likely representing cysts and small stable subcapsular collection/scarring along the posterolateral right hepatic lobe. The spleen, pancreas, gallbladder, and bilateral adrenal glands are normal. Kidneys demonstrate stable simple appearing cysts. Evidence for prior left hemicolectomy again noted. There is no evidence for bowel obstruction or acute inflammatory process and no obvious recurrence or colonic metastatic disease.. Pelvis demonstrates normal bladder and prior hysterectomy. No ascites. No free air. No intraperitoneal or retroperitoneal adenopathy. Abdominal aorta and vasculature appear normal. Musculoskeletal structures are intact and without acute osseous abnormality. IMPRESSION: 1. Decreased focal density and adjacent scarring at the right lung base. 2. Stable hepatic and renal hypodensities likely representing cysts. Stable small subcapsular collection/scarring along the right hepatic lobe. 3. No evidence for recurrence or metastatic disease. 4. No acute pathology appreciated. <Electronically signed by Cesar Davalos > 08/05/20 [id number]
== END ==
LOC: M RAD 09:07
PROVIDERS: ATTEND Internal Medicine Medical Oncology
DX: C18.9 Malignant neoplasm of colon, unspecified (principal); N28.1 Cyst of kidney, acquired
CPT/HCPCS: 74177; Q9963; Q9967

== ENCOUNTER → 2020-08-27 | Outpatient (REF) | payer OTHER ==
[~2020-08-27] MED LIST changes: -GASTROGRAFIN SOLUTION 30ML (Q9963) As Ordered ONE; -ISOVUE-370 76% 100ML VIAL As Ordered ONE; +SIME80CH5 PO; -SIME80TA PO
== END ==
LOC: M SFHCCLAY 12:15
PROVIDERS: ATTEND Nurse Practitioner Family
DX: Z01.84 Encounter for antibody response examination (principal)

== ENCOUNTER → 2020-10-17 | Outpatient (CLI) | payer OTHER ==
[~2020-10-17] MED LIST changes: +GASTROGRAFIN SOLUTION 30ML (Q9963) As Ordered ONE; +ISOVUE-370 76% 100ML VIAL As Ordered ONE
--- NOTE | 2020-10-17 11:47 | REP ---
INDICATION: MET COLON CA COMPARISON: None TECHNIQUE: Axial contrast enhanced images from the thoracic inlet to the upper abdomen using 100 ml Isovue 370 intravenous contrast material followed by CT of the abdomen and pelvis with coronal and sagittal reformations. This CT examination was performed using the following dose reduction techniques: Automated exposure control, adjustment of mA and/or kv according to the patient's size, and use of iterative reconstruction technique. FINDINGS: Bilateral lung bernardo are well aerated and clear. Chronic postsurgical scarring in the right lung base unchanged. No acute consolidation, suspicious nodule or mass lesion. No pleural effusion. No pneumothorax. Tracheobronchial tree is patent. No axillary, hilar, or mediastinal adenopathy. Further evaluation of the mediastinum demonstrates normal thoracic aorta, pulmonary vasculature, and heart/pericardium. Surrounding musculoskeletal structures without acute osseous abnormality. IMPRESSION: No acute mediastinal or pleuroparenchymal process. No evidence for metastatic disease. <Electronically signed by Cesar Davalos > 10/17/20 [id number]
--- NOTE | 2020-10-17 11:57 | REP ---
INDICATION: MET COLON CA. COMPARISON: 08/05/2020, 01/16/2020 TECHNIQUE: Axial contrast-enhanced images from the lung bases to the pubic symphysis using oral and 100 cc Isovue 370 intravenous contrast material. Delayed images of the abdomen obtained along with coronal and sagittal reformations. This CT examination was performed using the following dose reduction techniques: Automated exposure control, adjustment of mA and/or kv according to the patient's size, and the use of iterative reconstruction technique. FINDINGS: Liver again demonstrates few stable hepatic hypodensities measuring up to approximately 12 mm. No new hepatic lesions are identified. Spleen, pancreas, gallbladder, and bilateral adrenal glands are normal. Bilateral renal cysts including 3.8 cm left upper pole cyst are stable.. Evidence for prior bowel resection and anastomosis in the midline lower abdomen/pelvis likely colonic. Small and large bowel is otherwise unremarkable. Pelvis demonstrates normal bladder and evidence for prior hysterectomy. No pelvic fluid. No ascites. No free air. No intraperitoneal or retroperitoneal adenopathy. Abdominal aorta and vasculature appear normal. Musculoskeletal structures are intact and without acute osseous abnormality. IMPRESSION: No acute abdominopelvic pathology appreciated. No evidence for recurrence or metastatic disease. No ascites, focal inflammatory stranding or adenopathy. Stable hepatic and renal hypodensities likely representing benign cysts. <Electronically signed by Cesar Davalos > 10/17/20 [id number]
== END ==
LOC: M RAD 08:29
PROVIDERS: ATTEND Internal Medicine Medical Oncology
DX: C18.9 Malignant neoplasm of colon, unspecified (principal)
CPT/HCPCS: 71260; 74177; Q9963; Q9967

== ENCOUNTER → 2021-04-02 | Outpatient (REF) | payer OTHER ==
[~2021-04-02] MED LIST changes: -GASTROGRAFIN SOLUTION 30ML (Q9963) As Ordered ONE; -ISOVUE-370 76% 100ML VIAL As Ordered ONE; +LIDO1CRE42 TOP; -LIDO2.5C15 TOP; -OLAN10TA2 PO; +OLAN1TAB20 PO
[2021-04-03 12:05] LABS: APPEARANCE, URINE MANUAL HAZY (CLEAR); COLOR, URINE MANUAL ORANGE (YELLOW)
[2021-04-03 12:06] LABS: GLUCOSE, URINE (UA) MANUAL NEGATIVE (NEGATIVE); PH,URINE MAN 5.5 UNITS (5.0 - 7.0); SPECIFIC GRAVITY,URINE MANUAL 1.025 (1.002-1.035)
[2021-04-03 12:07] LABS: BILIRUBIN, URINE MANUAL OBSCURED (NEGATIVE); BLOOD URINE MANUAL POSITIVE (NEGATIVE); KETONE, URINE MANUAL OBSCURED mg/dL (NEGATIVE); LEUKOCYTE ESTERASE, URINE MAN OBSCURED (NEGATIVE); NITRITE, URINE MANUAL OBSCURED (NEGATIVE); PROTEIN, URINE MANUAL OBSCURED mg/dL (NEGATIVE); UROBILINOGEN, URINE MANUAL OBSCURED mg/dl (NORMAL)
[2021-04-03 12:37] LABS: SQUAMOUS EPITHELIAL CELL URINE MOD AMOUNT /hpf (SMALL AMT); TRANSITIONAL EPI CELLS, URINE SMALL AMOUNT /hpf
[2021-04-03 12:38] LABS: BACTERIA, URINE MOD AMOUNT; CALCIUM OXALATE CRYSTALS,URINE MOD AMOUNT /hpf; HYALINE CAST, URINE NONE SEEN /lpf (0-1)
== END ==
LOC: M SFHCCLAY 11:23
PROVIDERS: ATTEND Nurse Practitioner Family
DX: R30.0 Dysuria (principal)

== ENCOUNTER → 2021-04-04 | Outpatient (CLI) | payer OTHER | LOC: M LABSMTC 09:26 | PROVIDERS: ATTEND Anesthesiology | DX: Z01.812 Encounter for preprocedural laboratory examination (principal); Z20.822 Contact with and (suspected) exposure to COVID-19 ==

== ENCOUNTER 2021-04-09 08:48 | Day surgery (SDC) | payer OTHER ==
[~2021-04-09] VITALS: Ht 160 cm; Wt 56.7 kg
[~2021-04-09 08:48] MED LIST changes: +LIDOCAINE 2% 100MG/5ML SDV (FOR ANES.) As Ordered ONE; +NS 1,000 ML IV ONE; +propofoL 200 MG/20 ML VIAL As Ordered ONE
--- NOTE | 2021-04-09 10:32 | ROOR ---
Patient Name: Radha Cardoza Procedure Date: 04/09/2021 10:05 AM Date of : 1970 Age: 50 Room: [facility] Gender: Female Note Status: Finalized Procedure: Colonoscopy Indications: High risk colon cancer surveillance: Personal history of colon cancer Providers: DO Drea Murphy MD: Adeline Nicole NP Requesting Provider: Medicines: Propofol per Anesthesia Complications: No immediate complications. Procedure: Pre-Anesthesia Assessment: - Prior to the procedure, a History and Physical was performed, and patient medications and allergies were reviewed. The patient is competent. The risks and benefits of the procedure and the sedation options and risks were discussed with the patient. All questions were answered and informed consent was obtained. Patient identification and proposed procedure were verified by the physician, the nurse, the bulwark carpenter and the maintenance technician 3rd shift in the endoscopy suite. Mental Status Examination: alert and oriented. Airway Examination: normal oropharyngeal airway and neck mobility. Respiratory Examination: clear to auscultation. CV Examination: normal. Prophylactic Antibiotics: The patient does not require prophylactic antibiotics. Prior Anticoagulants: The patient has taken no previous anticoagulant or antiplatelet agents. ASA Grade Assessment: II - A patient with mild systemic disease. After reviewing the risks and benefits, the patient was deemed in satisfactory condition to undergo the procedure. The anesthesia plan was to use monitored anesthesia care (MAC). Immediately prior to administration of medications, the patient was re-assessed for adequacy to receive sedatives. The heart rate, respiratory rate, oxygen saturations, blood pressure, adequacy of pulmonary ventilation, and response to care were monitored throughout the procedure. The physical status of the patient was re-assessed after the procedure. The Colonoscope was introduced through the anus and advanced to the cecum, identified by appendiceal orifice and ileocecal valve. The colonoscopy was performed without difficulty. The patient tolerated the procedure well. Findings: Non-bleeding internal hemorrhoids were found during retroflexion. Impression: - Non-bleeding internal hemorrhoids. - No specimens collected. Recommendation: - Patient has a contact number available for emergencies. The signs and symptoms of potential delayed complications were discussed with the patient. Return to normal activities tomorrow. Written discharge instructions were provided to the patient. - Repeat colonoscopy in 6 months for surveillance. - Return to my office in 6 months. Procedure Code(s): --- Professional --- G0105, Colorectal cancer screening; colonoscopy on individual at high risk Diagnosis Code(s): --- Professional --- Z85.038, Personal history of other malignant neoplasm of large intestine K64.8, Other hemorrhoids CPT copyright 2019 [employer]. All rights reserved. The codes documented in this report are preliminary and upon taxicab starter review may be revised to meet current compliance requirements. Aroldo Silver DO 04/09/2021 10:31:48 AM Electronically signed by Aroldo Silver DO Number of Addenda: 0 Note Initiated On: 04/09/2021 10:05 AM Estimated Blood Loss: Estimated blood loss was minimal.
[2021-04-09 10:58] VITALS: BP 108/71
== END 2021-04-09 11:01 | disposition home or self-care (01) ==
LOC: M OPP 08:48
PROVIDERS: ATTEND Surgery
DX: K64.8 Other hemorrhoids (principal); Z85.038 Personal history of other malignant neoplasm of large intestine; Z85.05 Personal history of malignant neoplasm of liver; Z85.030 Personal history of malignant carcinoid tumor of large intestine; Z09 Encounter for follow-up examination after completed treatment for conditions other than malignant neoplasm; Z92.21 Personal history of antineoplastic chemotherapy; N18.2 Chronic kidney disease, stage 2 (mild); Z91.040 Latex allergy status; Z91.041 Radiographic dye allergy status; Z91.013 Allergy to seafood; Z87.891 Personal history of nicotine dependence

== ENCOUNTER 2021-04-13 01:24 | Emergency (ER) | payer OTHER ==
[~2021-04-13] VITALS: Ht 160 cm; Wt 57.1 kg
[~2021-04-13 01:24] MED LIST changes: -LIDOCAINE 2% 100MG/5ML SDV (FOR ANES.) As Ordered ONE; -NS 1,000 ML IV ONE; -propofoL 200 MG/20 ML VIAL As Ordered ONE
[2021-04-13 02:38] LABS: BASO # 0.1 10^3/uL (0.0-0.2); BASO % 0.9 % (0.0-1.0); EOS # 0.5 10^3/uL (0.0-0.5); EOS % 4.9 % (0.0-3.0); HEMATOCRIT 40.8 % (36.0-47.0); HEMOGLOBIN 13.5 g/dl (12.0-15.5); LYMPH # 2.8 10^3/uL (1.5-5.0); LYMPH % 30.3 % (24.0-44.0); MEAN CORPUSCULAR HEMOGLOBIN 31.7 pg (27.0-33.0); MEAN CORPUSCULAR HGB CONC 33.1 g/dl (32.0-36.5); MEAN CORPUSCULAR VOLUME 95.8 fl (80.0-96.0); MONO # 0.7 10^3/uL (0.0-0.8); MONO % 7.7 % (2.0-8.0); NEUTROPHILS # 5.2 10^3/uL (1.5-8.5); NEUTROPHILS % 56.1 % (36.0-66.0); PLATELET COUNT, AUTOMATED 207 10^3/uL (150-450); RED BLOOD COUNT 4.26 10^6/uL (4.00-5.40); WHITE BLOOD COUNT 9.2 10^3/uL (4.0-10.0)
[2021-04-13 03:07] LABS: ALBUMIN 3.7 GM/DL (3.2-5.2); ALT/SGPT 20 U/L (12-78); BILIRUBIN,DIRECT < 0.1 MG/DL (0.0-0.2); BILIRUBIN,TOTAL 0.3 MG/DL (0.2-1.0); BLOOD UREA NITROGEN 12 MG/DL (7-18); CALCIUM LEVEL 8.2 MG/DL (8.5-10.1); CARBON DIOXIDE LEVEL 27 MEQ/L (21-32); CHLORIDE LEVEL 108 MEQ/L (98-107); CREATININE FOR GFR 0.77 MG/DL (0.55-1.30); GLOMERULAR FILTRATION RATE > 60.0 (>58); GLUCOSE, FASTING 100 MG/DL (70-100); LIPASE 177 U/L (73-393); POTASSIUM SERUM 3.8 MEQ/L (3.5-5.1); SODIUM LEVEL 140 MEQ/L (136-145); TOTAL PROTEIN 6.6 GM/DL (6.4-8.2)
[2021-04-13] MEDS ORDERED: methylPREDNISolone 125MG 2ML VIAL IV ONE (04:10)
[2021-04-13] MEDS ORDERED: diphenhydrAMINE 50MG/ML VIAL (J1200) IV STA (04:10)
[2021-04-13] MEDS ORDERED: ISOVUE-370 76% 100ML VIAL As Ordered ONE (04:27)
--- NOTE | 2021-04-13 06:24 | REPVR ---
PROCEDURE INFORMATION: Exam: CT Abdomen And Pelvis With Contrast Exam date and time: 04/13/2021 5:28 AM Age: 50 years old Clinical indication: Other: Abdominal pain, colon cancer, S/P resection TECHNIQUE: Imaging protocol: Computed tomography of the abdomen and pelvis with contrast. Radiation optimization: All CT scans at this facility use at least one of these dose optimization techniques: automated exposure control; mA and/or kV adjustment per patient size (includes targeted exams where dose is matched to clinical indication); or iterative reconstruction. Contrast material: ISOVUE 370; Contrast volume: 100 ml; Contrast route: INTRAVENOUS (IV); COMPARISON: CT ABD PELVIS WITH CONTRAST 10/17/2020 10:03 AM FINDINGS: Lungs: There is left basilar atelectatic changes. There is right lung base scar like density, unchanged since the prior exams. Liver: There is a 1.5 x 1.0 cm posterior right hepatic lobe hypodense lesion with an eccentric dense focus likely discontinuous enhancement suggestive of hemangioma. Few scattered small cysts seen in addition to too small to characterize hypodensities. Gallbladder and bile ducts: Normal. No calcified stones. No ductal dilation. Pancreas: Normal. No ductal dilation. Spleen: Normal. No splenomegaly. Adrenal glands: Normal. No mass. Kidneys and ureters: There is 3.5 cm left upper renal pole cyst measuring higher than simple fluid. There is no hydronephrosis. Stomach and bowel: The patient is status post transverse colonic resection with grossly intact colo colonic anastomosis in the central aspect of the abdomen. Moderate right and transverse colonic stool burden seen. There is apparent thickening of multiple small bowel loops particularly in the left abdomen. Appendix: No evidence of appendicitis. Intraperitoneal space: Unremarkable. No free air. No significant fluid collection. Vasculature: Unremarkable. No abdominal aortic aneurysm. Lymph nodes: Unremarkable. No enlarged lymph nodes. Urinary bladder: Unremarkable as visualized. Reproductive: The patient is status post hysterectomy. There is no adnexal mass. Bones/joints: Unremarkable. No acute fracture. Soft tissues: Unremarkable. IMPRESSION: 1. Status post partial transverse colectomy with grossly intact colo colonic anastomosis and no CT evidence of bowel obstruction. Moderate colonic stool burden noted. 2. Apparent thickened small bowel loops particularly in the left abdomen. Correlate clinically for enteritis. 3. Few scattered subcentimeter hepatic cysts and too small to characterize hypodensities.In a low-risk patient, this lesion is most likely to be benign and no further follow-up is recommended. In a high-risk patient, recommend follow-up MRI in 3-6 months (or earlier if warranted by the patient's specific clinical circumstances). 4. 1.5 x 1.0 cm posterior right hepatic lobe lesion possibly hemangioma. This can be further characterized with ultrasound and or MRI with contrast on a nonemergent. Basis 5. 3.5 cm left upper renal pole cyst measuring higher than simple fluid. This can also be further evaluated with the above suggested MRI with contrast. COMMENTS: Consistent with the [employer]'s Incidental Findings Committee white paper (J Am Saran Radiol 2018): Any incidental renal lesion less than 1 cm or classified as too small to characterize, or any incidental cystic renal lesion characterized as simple-appearing, is likely benign. No follow-up imaging is recommended for these lesions per consensus recommendations based on imaging criteria. Electronically signed by: Rolf Wilkinson On 04/13/2021 06:24:04 AM
[2021-04-13 07:15] VITALS: BP 114/73
== END 2021-04-13 07:20 | disposition home or self-care (01) ==
LOC: M ED 01:24
DX: R10.9 Unspecified abdominal pain (principal); Z85.038 Personal history of other malignant neoplasm of large intestine; Z90.49 Acquired absence of other specified parts of digestive tract; Z91.041 Radiographic dye allergy status; Z91.040 Latex allergy status; Z91.013 Allergy to seafood
CPT/HCPCS: 74177; 80048; 80076; 83605; 83690; 85025; 93041; 96374; 96375; 99285; J1200; J2930; Q9967

== ENCOUNTER → 2021-05-19 | Outpatient (CLI) | payer OTHER | LOC: M WHC 11:26 | PROVIDERS: ATTEND Internal Medicine Medical Oncology | DX: Z53.8 Procedure and treatment not carried out for other reasons (principal) ==

== ENCOUNTER → 2021-06-05 | Outpatient (CLI) | payer OTHER ==
[~2021-06-05] MED LIST changes: +DIPH25CA32 PO
--- NOTE | 2021-06-05 16:06 | REP ---
INDICATION: DIAG BILATERAL RIGHT BREAST LUMP. COMPARISON: Screening mammogram, 08/28/2016. TECHNIQUE: 2D and 3D bilateral craniocaudal and oblique views of the breasts were obtained and supplemented by focal compression spot images of the right breast in the CC and MLO orientations. Targeted ultrasound evaluation of the right breast was performed. FINDINGS: The Volpara volumetric breast density pattern is b, there are scattered areas of fibroglandular density.. There is a radiopaque triangle marking the location of a palpable abnormality in the right breast. There is no mammographic correlate to the palpable abnormality in the right breast. The left breast has an unremarkable appearance. Right breast ultrasound: There are no cystic or solid masses in the right breast. IMPRESSION: BIRADS/ACR : Category 1: Negative. There are no mammographic or sonographic correlates to the palpable abnormality in the right breast. This patient's Tyrer-zick lifetime breast cancer risk assessment score is 10.7%. This mammogram was interpreted with the aid of an FDA-approved computer-aided detection system. The patient states she has not had a clinical breast exam in greater than 1 year. The patient letter being requested is M1. RECOMMENDATION: Repeat screening mammography recommended 1 year (for women over 40). <Electronically signed by Inocente Box > 06/05/21 [id number]
--- NOTE | 2021-06-06 08:16 | REP ---
INDICATION: Right breast lump. COMPARISON: Screening mammogram, 08/28/2016 TECHNIQUE: 2D and 3D bilateral craniocaudal and oblique views of the breasts were obtained and supplemented by focal compression spot images of the right breast in the CC and MLO orientations. Targeted ultrasound evaluation of the right breast was performed. FINDINGS: The Volpara volumetric breast density pattern is b, there are scattered areas of fibroglandular density.. There is a radiopaque triangle marking the location of a palpable abnormality in the right breast. There is no mammographic correlate to the palpable abnormality in the right breast. The left breast has an unremarkable appearance. Right breast ultrasound: There are no cystic or solid masses in the right breast. IMPRESSION: BIRADS/ACR : Category 1: Negative. There are no mammographic or sonographic correlates to the palpable abnormality in the right breast. This patient's Tyrer-Cuzick lifetime breast cancer risk assessment score is 10.7%. This mammogram was interpreted with the aid of an FDA-approved computer-aided detection system. The patient states she has not had a clinical breast exam in greater than 1 year. The patient letter being requested is M1. RECOMMENDATION: Follow-up screening mammogram in 1 year. <Electronically signed by Inocente Box > 06/06/21 0812
== END ==
LOC: M WHC 12:11
PROVIDERS: ATTEND Internal Medicine Medical Oncology
DX: Z12.31 Encounter for screening mammogram for malignant neoplasm of breast (principal)
CPT/HCPCS: 76642; 77066; G0279

== ENCOUNTER → 2021-07-16 | Outpatient (CLI) | payer OTHER ==
[~2021-07-16] MED LIST changes: +GASTROGRAFIN SOLUTION 30ML (Q9963) As Ordered ONE; +ISOVUE-370 76% 100ML VIAL As Ordered ONE
--- NOTE | 2021-07-17 05:56 | REP ---
INDICATION: MET COLON CA COMPARISON: 10/17/2020, 01/16/2020 TECHNIQUE: Axial contrast enhanced images from the thoracic inlet to the upper abdomen with coronal and sagittal reformations using 100 ml Isovue 370 intravenous contrast material. This CT examination was performed using the following dose reduction techniques: Automated exposure control, adjustment of mA and/or kv according to the patient's size, and use of iterative reconstruction technique. FINDINGS: The bilateral lung bernardo are relatively well aerated and essentially clear. There is a small area of chronic linear subpleural scarring in the posterior right lower lobe at the site of prior nodular opacities from 01/16/2020 examination. The no acute consolidation, suspicious nodule or mass. No effusion. No pneumothorax. Tracheobronchial tree is patent. No significant adenopathy identified. Thoracic aorta, pulmonary vasculature, and heart/pericardium are normal. Surrounding musculoskeletal structures are intact and without acute osseous abnormality. IMPRESSION: 1. No acute mediastinal or pleuroparenchymal process. 2. No evidence for metastatic disease. <Electronically signed by Cesar Davalos > 07/17/21 0552
--- NOTE | 2021-07-17 06:17 | REP ---
INDICATION: MET COLON CA. COMPARISON: 04/13/2021, 01/16/2020 TECHNIQUE: Axial contrast-enhanced images from the lung bases to the pubic symphysis using oral and 100 cc Isovue 370 intravenous contrast material. . This CT examination was performed using the following dose reduction techniques: Automated exposure control, adjustment of mA and/or kv according to the patient's size, and the use of iterative reconstruction technique. FINDINGS: Liver again demonstrates few scattered benign cysts primarily in the left lobe along with a vague hypodense lesion along the posterior periphery of the right lobe consistent with previously diagnosed hemangioma. No new focal hepatic lesions are identified. Spleen, pancreas, gallbladder, and bilateral adrenal glands are normal. Kidneys again demonstrate scattered bilateral simple cysts measuring up to 2 cm on the right kidney and 3.2 cm upper pole left kidney. Evidence for prior partial colectomy again noted. There is no evidence for bowel obstruction or acute inflammatory process. No ascites or obvious mass/recurrence or metastatic disease. Pelvis demonstrates normal bladder and adnexa. No ascites. No free air. No intraperitoneal or retroperitoneal adenopathy. Abdominal aorta and vasculature appear normal. Musculoskeletal structures are intact and without acute osseous abnormality. IMPRESSION: No acute abdominopelvic pathology appreciated. Stable benign findings including hepatic and renal cysts as well as hepatic hemangioma. No evidence for metastatic disease or obvious recurrence. <Electronically signed by Cesar Davalos > 07/17/21 0692
== END ==
LOC: M RAD 11:10
PROVIDERS: ATTEND Internal Medicine Medical Oncology
DX: C18.9 Malignant neoplasm of colon, unspecified (principal)
CPT/HCPCS: 71260; 74177; Q9963; Q9967

== ENCOUNTER → 2021-09-09 | Outpatient (CLI) | payer OTHER ==
[~2021-09-09] MED LIST changes: -GASTROGRAFIN SOLUTION 30ML (Q9963) As Ordered ONE; -ISOVUE-370 76% 100ML VIAL As Ordered ONE; -PROC10TA4 PO; +PROC10TA5 PO
== END ==
LOC: M PLARAD 07:40
PROVIDERS: ATTEND Internal Medicine Medical Oncology
DX: C18.8 Malignant neoplasm of overlapping sites of colon (principal)
CPT/HCPCS: 78815; A9552

== ENCOUNTER → 2021-10-31 | Outpatient (CLI) | payer OTHER | LOC: M LABSMTC 10:09 | PROVIDERS: ATTEND Anesthesiology | DX: Z01.812 Encounter for preprocedural laboratory examination (principal); Z20.822 Contact with and (suspected) exposure to COVID-19 ==

== ENCOUNTER 2021-11-05 11:44 | Day surgery (SDC) | payer OTHER ==
[~2021-11-05] VITALS: Ht 160 cm; Wt 56.4 kg
[~2021-11-05 11:44] MED LIST changes: +NS 1,000 ML IV ONE
[2021-11-05] MEDS ORDERED: LIDOCAINE 2% 100MG/5ML SDV (FOR ANES.) As Ordered ONE (12:39)
[2021-11-05] MEDS ORDERED: propofoL 200 MG/20 ML VIAL As Ordered ONE (12:39)
[2021-11-05] MEDS ORDERED: PHENYLephrine 500MCG 5ML (100MCG/ML) SYRINGE As Ordered ONE (12:55)
[2021-11-05] MEDS ORDERED: ePHEDrine SULFATE 25 MG/5 ML(5MG/ML) SYRINGE As Ordered ONE (12:55)
[2021-11-05 13:35] VITALS: BP 121/79
== END 2021-11-05 13:40 | disposition home or self-care (01) ==
LOC: M OPP 11:44
PROVIDERS: ATTEND Surgery
DX: K64.0 First degree hemorrhoids (principal); Z85.038 Personal history of other malignant neoplasm of large intestine; Z08 Encounter for follow-up examination after completed treatment for malignant neoplasm; Z79.899 Other long term (current) drug therapy; Z91.013 Allergy to seafood; Z91.040 Latex allergy status; Z91.041 Radiographic dye allergy status; Z86.711 Personal history of pulmonary embolism; Z92.21 Personal history of antineoplastic chemotherapy; Z87.891 Personal history of nicotine dependence

== ENCOUNTER → 2021-11-25 | Outpatient (REF) | payer OTHER ==
[~2021-11-25] MED LIST changes: -NS 1,000 ML IV ONE
[2021-11-25 10:27] LABS: BASO # 0.1 10^3/uL (0.0-0.2); BASO % 0.9 % (0.0-1.0); EOS # 0.2 10^3/uL (0.0-0.5); EOS % 3.2 % (0.0-3.0); HEMATOCRIT 43.6 % (36.0-47.0); HEMOGLOBIN 14.4 g/dl (12.0-15.5); LYMPH # 2.2 10^3/uL (1.5-5.0); LYMPH % 29.1 % (24.0-44.0); MEAN CORPUSCULAR HEMOGLOBIN 31.4 pg (27.0-33.0); MEAN CORPUSCULAR VOLUME 95.2 fl (80.0-96.0); MONO # 0.5 10^3/uL (0.0-0.8); MONO % 6.8 % (2.0-8.0); NEUTROPHILS # 4.4 10^3/uL (1.5-8.5); NEUTROPHILS % 59.7 % (36.0-66.0); PLATELET COUNT, AUTOMATED 224 10^3/uL (150-450); RED BLOOD COUNT 4.58 10^6/uL (4.00-5.40); WHITE BLOOD COUNT 7.4 10^3/uL (4.0-10.0)
[2021-11-25 11:08] LABS: ALBUMIN 3.9 GM/DL (3.2-5.2); ALT/SGPT 22 U/L (12-78); BILIRUBIN,TOTAL 0.6 MG/DL (0.2-1.0); BLOOD UREA NITROGEN 12 MG/DL (7-18); CALCIUM LEVEL 8.7 MG/DL (8.5-10.1); CARBON DIOXIDE LEVEL 30 MEQ/L (21-32); CHLORIDE LEVEL 106 MEQ/L (98-107); CHOLESTEROL LEVEL 208 MG/DL (<200); CHOLESTEROL RISK RATIO 3.466 (<5); CREATININE FOR GFR 0.83 MG/DL (0.55-1.30); FREE T4 0.86 NG/DL (0.76-1.46); GLOMERULAR FILTRATION RATE > 60.0 (>51); GLUCOSE, FASTING 81 MG/DL (70-100); HDL CHOLESTEROL 60 MG/DL (>40); LDL CHOLESTEROL 131 MG/DL (<100); NON-HDL-C 148 MG/DL; POTASSIUM SERUM 4.4 MEQ/L (3.5-5.1); SODIUM LEVEL 138 MEQ/L (136-145); TOTAL PROTEIN 7.1 GM/DL (6.4-8.2); TRIGLYCERIDES LEVEL 84 MG/DL (<150)
== END ==
LOC: M LAB REF 10:06
PROVIDERS: ATTEND Nurse Practitioner Family
DX: E78.2 Mixed hyperlipidemia (principal)

== ENCOUNTER → 2021-12-22 | Outpatient (CLI) | payer OTHER | LOC: M PLARAD 12:53 | PROVIDERS: ATTEND Internal Medicine Medical Oncology | DX: C18.8 Malignant neoplasm of overlapping sites of colon (principal) | CPT/HCPCS: 78815; A9552 ==

== ENCOUNTER → 2022-04-23 | Outpatient (CLI) | payer OTHER ==
[~2022-04-23] MED LIST changes: +LEVO1TAB39 PO
== END ==
LOC: M CLY 09:07
PROVIDERS: ATTEND Nurse Practitioner Family
DX: J20.9 Acute bronchitis, unspecified (principal)

== ENCOUNTER → 2022-06-24 | Outpatient (REF) | payer OTHER ==
[~2022-06-24] MED LIST changes: +TRIA1CR80
[2022-06-24 18:15] LABS: APPEARANCE, URINE MANUAL CLEAR (CLEAR); BILIRUBIN, URINE MANUAL NEGATIVE (NEGATIVE); BLOOD URINE MANUAL POSITIVE (NEGATIVE); COLOR, URINE MANUAL LT YELLOW (YELLOW); GLUCOSE, URINE (UA) MANUAL NEGATIVE (NEGATIVE); KETONE, URINE MANUAL NEGATIVE (NEGATIVE); LEUKOCYTE ESTERASE, URINE MAN NEGATIVE (NEGATIVE); NITRITE, URINE MANUAL NEGATIVE (NEGATIVE); PROTEIN, URINE MANUAL NEGATIVE (NEGATIVE); UROBILINOGEN, URINE MANUAL NORMAL (NORMAL)
[2022-06-24 18:43] LABS: BACTERIA, URINE SMALL AMOUNT; HYALINE CAST, URINE NONE SEEN /lpf (0-1); RBC, URINE 0-1 /hpf (0-3); SQUAMOUS EPITHELIAL CELL URINE SMALL AMOUNT /hpf (SMALL AMT); WBC, URINE 0-1 /hpf (0-3)
== END ==
LOC: M SMT 16:45
PROVIDERS: ATTEND Nurse Practitioner Women's Health
DX: R30.0 Dysuria (principal)

== ENCOUNTER → 2022-07-07 | Outpatient (CLI) | payer OTHER ==
[~2022-07-07] MED LIST changes: +GASTROGRAFIN SOLUTION 30ML As Ordered ONE; +ISOVUE-370 76% 100ML VIAL As Ordered ONE
== END ==
LOC: M RAD 09:14
PROVIDERS: ATTEND Internal Medicine Medical Oncology
DX: C18.9 Malignant neoplasm of colon, unspecified (principal)

== ENCOUNTER → 2023-01-25 | Outpatient (CLI) | payer OTHER ==
[~2023-01-25] MED LIST changes: +DIPH-435 PO; -DIPH25CA32 PO
== END ==
LOC: M RAD 11:28
PROVIDERS: ATTEND Internal Medicine Medical Oncology
DX: C18.9 Malignant neoplasm of colon, unspecified (principal)
CPT/HCPCS: 71260; 74177; Q9963; Q9967

== ENCOUNTER → 2023-07-05 | Outpatient (CLI) | payer OTHER ==
[~2023-07-05] MED LIST changes: -LIDO1CRE42 TOP; +LIDO30CR18 TOP
== END ==
LOC: M RAD 08:28
PROVIDERS: ATTEND Internal Medicine Medical Oncology
DX: C18.9 Malignant neoplasm of colon, unspecified (principal)
CPT/HCPCS: 71260; 74177; Q9963; Q9967

== ENCOUNTER 2023-08-11 08:41 | Day surgery (SDC) | payer OTHER ==
[~2023-08-11] VITALS: Ht 160 cm; Wt 55.8 kg
[~2023-08-11 08:41] MED LIST changes: -GASTROGRAFIN SOLUTION 30ML As Ordered ONE; -ISOVUE-370 76% 100ML VIAL As Ordered ONE; +NS 1,000 ML IV ONE
[2023-08-11] MEDS ORDERED: propofoL 200 MG/20 ML VIAL As Ordered ONE ×2 (09:23→09:27)
[2023-08-11 09:32] VITALS: TEMP 97.1
[2023-08-11 09:45] VITALS: BP 112/73; O2SAT 98
== END 2023-08-11 09:52 | disposition home or self-care (01) ==
LOC: M OPP 08:41
PROVIDERS: ATTEND Surgery
DX: Z85.038 Personal history of other malignant neoplasm of large intestine (principal); Z08 Encounter for follow-up examination after completed treatment for malignant neoplasm; K64.1 Second degree hemorrhoids; Z87.891 Personal history of nicotine dependence; Z91.013 Allergy to seafood; Z91.040 Latex allergy status; Z91.041 Radiographic dye allergy status

== ENCOUNTER → 2023-10-19 | Outpatient (REF) | payer OTHER ==
[~2023-10-19] MED LIST changes: -NS 1,000 ML IV ONE
[2023-10-19 18:33] LABS: BASO # 0.1 10^3/uL (0.0-0.2); BASO % 1.1 % (0.0-1.0); EOS # 0.3 10^3/uL (0.0-0.5); EOS % 3.8 % (0.0-3.0); HEMATOCRIT 45.7 % (36.0-47.0); HEMOGLOBIN 15.1 g/dl (12.0-15.5); LYMPH # 2.4 10^3/uL (1.5-5.0); LYMPH % 28.6 % (24.0-44.0); MEAN CORPUSCULAR HEMOGLOBIN 32.7 pg (27.0-33.0); MEAN CORPUSCULAR VOLUME 98.9 fl (80.0-96.0); MONO # 0.7 10^3/uL (0.0-0.8); MONO % 7.9 % (2.0-8.0); NEUTROPHILS # 4.8 10^3/uL (1.5-8.5); NEUTROPHILS % 58.4 % (36.0-66.0); PLATELET COUNT, AUTOMATED 208 10^3/uL (150-450); RED BLOOD COUNT 4.62 10^6/uL (4.00-5.40); WHITE BLOOD COUNT 8.3 10^3/uL (4.0-10.0)
[2023-10-19 18:59] LABS: URIC ACID 5.6 MG/DL (3.1-7.8)
[2023-10-19 19:02] LABS: ALBUMIN 3.9 G/DL (3.2-5.2); ALKALINE PHOSPHATASE 66 U/L (46-116); ALT/SGPT 17 U/L (7.0-40); AST/SGOT 8 U/L (<34); BILIRUBIN,TOTAL 0.5 MG/DL (0.3-1.2); BLOOD UREA NITROGEN 16 MG/DL (9-23); CALCIUM LEVEL 8.6 MG/DL (8.5-10.1); CARBON DIOXIDE LEVEL 30 MMOL/L (20-31); CHLORIDE LEVEL 104 MMOL/L (98-107); CREATININE FOR GFR 0.83 MG/DL (0.55-1.30); GLOMERULAR FILTRATION RATE > 60.0 (>51); GLUCOSE, FASTING 55 MG/DL (60-100); POTASSIUM SERUM 4.6 MMOL/L (3.5-5.1); SODIUM LEVEL 136 MMOL/L (136-145); TOTAL PROTEIN 6.8 G/DL (5.7-8.2)
== END ==
LOC: M SFHCCLAY 09:50
PROVIDERS: ATTEND Nurse Practitioner Family
DX: M79.671 Pain in right foot (principal)

== ENCOUNTER → 2023-10-19 | Outpatient (CLI) | payer OTHER | LOC: M CLY 09:56 | PROVIDERS: ATTEND Nurse Practitioner Family | DX: M79.671 Pain in right foot (principal) ==

== ENCOUNTER → 2024-03-01 | Outpatient (CLI) | payer OTHER ==
[~2024-03-01] MED LIST changes: +GASTROGRAFIN SOLUTION 30ML As Ordered ONE; +ISOVUE-370 76% 100ML VIAL As Ordered ONE
== END ==
LOC: M RAD 07:09
PROVIDERS: ATTEND Internal Medicine Medical Oncology
DX: C18.9 Malignant neoplasm of colon, unspecified (principal)
CPT/HCPCS: 71260; 74177; Q9963; Q9967

== ENCOUNTER → 2024-04-17 | Outpatient (REF) | payer OTHER ==
[~2024-04-17] MED LIST changes: -GASTROGRAFIN SOLUTION 30ML As Ordered ONE; -ISOVUE-370 76% 100ML VIAL As Ordered ONE
== END ==
LOC: M SFHCCLAY 16:32
PROVIDERS: ATTEND Nurse Practitioner Family
DX: Z87.42 Personal history of other diseases of the female genital tract (principal)

== ENCOUNTER → 2024-05-25 | Outpatient (REF) | payer OTHER | LOC: M SFHCCLAY 09:26 | PROVIDERS: ATTEND Physician Assistant | DX: L98.9 Disorder of the skin and subcutaneous tissue, unspecified (principal) ==

== ENCOUNTER → 2024-08-07 | Outpatient (REF) | payer OTHER | LOC: M SFHCCLAY 10:41 | PROVIDERS: ATTEND Physician Assistant | DX: R30.0 Dysuria (principal) ==

== ENCOUNTER → 2025-02-06 | Outpatient (REF) | payer OTHER ==
[~2025-02-06] MED LIST changes: -AMBI5TAB PO; -PRED50TA; -PRED50TA PO; +PRED50TA57; +PRED50TA57 PO; +ZOLP-532 PO
== END ==
LOC: M SFHCCLAY 09:23
PROVIDERS: ATTEND Physician Assistant
DX: R30.0 Dysuria (principal); N89.8 Other specified noninflammatory disorders of vagina

== ENCOUNTER → 2025-03-28 | Outpatient (CLI) | payer BC | LOC: M PLALAB 14:17 | PROVIDERS: ATTEND Surgery | DX: Z80.3 Family history of malignant neoplasm of breast (principal); Z84.81 Family history of carrier of genetic disease ==

== ENCOUNTER → 2025-04-04 | Outpatient (CLI) | payer BC | LOC: M WHC 12:48 | PROVIDERS: ATTEND Surgery | DX: Z12.31 Encounter for screening mammogram for malignant neoplasm of breast (principal); Z80.3 Family history of malignant neoplasm of breast; R92.313 Mammographic fatty tissue density, bilateral breasts ==

== ENCOUNTER → 2025-04-11 | Outpatient (CLI) | payer BC ==
[2025-04-11 09:33] VITALS: TEMP 98.5
[2025-04-11 10:20] VITALS: BP 110/82; O2SAT 98
== END ==
LOC: M WHCPRO 09:12
PROVIDERS: ATTEND Surgery
DX: C50.512 Malignant neoplasm of lower-outer quadrant of left female breast (principal); N63.23 Unspecified lump in the left breast, lower outer quadrant

== ENCOUNTER → 2025-04-30 | Outpatient (CLI) | payer BC | LOC: M CLY 07:57 | PROVIDERS: ATTEND Nurse Practitioner Family | DX: D05.12 Intraductal carcinoma in situ of left breast (principal) ==

== ENCOUNTER → 2025-04-30 | Outpatient (REF) | payer BC ==
[2025-04-30 13:46] LABS: BASO # 0.1 10^3/uL (0.0-0.2); BASO % 1.4 % (0.0-1.0); EOS # 0.3 10^3/uL (0.0-0.5); EOS % 4.2 % (0.0-3.0); LYMPH # 2.2 10^3/uL (1.5-5.0); LYMPH % 31.0 % (24.0-44.0); MONO # 0.6 10^3/uL (0.0-0.8); MONO % 7.7 % (2.0-8.0); NEUTROPHILS # 4.0 10^3/uL (1.5-8.5); NEUTROPHILS % 55.6 % (36.0-66.0); PLATELET COUNT, AUTOMATED 241 10^3/uL (150-450)
[2025-04-30 14:18] LABS: ALT/SGPT 13.0 U/L (7.0-40); AST/SGOT 19.0 U/L (<34); CALCIUM LEVEL 8.9 MG/DL (8.5-10.1); CARBON DIOXIDE LEVEL 31.0 MMOL/L (20-31); CHLORIDE LEVEL 107.0 MMOL/L (98-107); CREATININE FOR GFR 0.9 MG/DL (0.55-1.30); GLOMERULAR FILTRATION RATE 76.4 (>51); POTASSIUM SERUM 4.4 MMOL/L (3.5-5.1); SODIUM LEVEL 141.0 MMOL/L (136-145)
== END ==
LOC: M SFHCCLAY 07:38
PROVIDERS: ATTEND Nurse Practitioner Family
DX: D05.12 Intraductal carcinoma in situ of left breast (principal)

== ENCOUNTER → 2025-05-01 | Outpatient (CLI) | payer BC | LOC: M PLARAD 11:47 | PROVIDERS: ATTEND Surgery | DX: C50.512 Malignant neoplasm of lower-outer quadrant of left female breast (principal) | CPT/HCPCS: 78816; A9552 ==

== ENCOUNTER → 2025-05-15 | Outpatient (CLI) | payer BC ==
[~2025-05-15] MED LIST changes: +PROHANCE 279.3MG/ML 15ML VIAL As Ordered ONE
== END ==
LOC: M RAD 14:05
PROVIDERS: ATTEND Surgery
DX: C50.512 Malignant neoplasm of lower-outer quadrant of left female breast (principal)
CPT/HCPCS: 77049; A9576

== ENCOUNTER 2025-05-17 06:55 | Observation (INO) | payer BC ==
[~2025-05-17] VITALS: Ht 160 cm; Wt 56.2 kg
[2025-05-17] VITALS (7 sets, daily range): BP systolic 100–113; BP diastolic 66–74; TEMP 96.3–97.8; O2SAT 95
[~2025-05-17 06:55] MED LIST changes: -PROHANCE 279.3MG/ML 15ML VIAL As Ordered ONE
[2025-05-17] MEDS: LR 1,000 ML IV SCH ×3 (08:05→17:04)
[2025-05-17] MEDS: ACETAMINOPHEN 325 MG TAB PO ONE (08:22)
[2025-05-17] MEDS ORDERED: LIDOCAINE 2% 100 MG/5 ML SDV (FOR ANES.) As Ordered ONE (09:31)
[2025-05-17] MEDS ORDERED: MIDAZOLAM INJ 2 MG/2 ML VIAL As Ordered ONE (09:31)
[2025-05-17] MEDS ORDERED: ONDANSETRON 4MG 2ML VIAL As Ordered ONE (09:31)
[2025-05-17] MEDS ORDERED: ROCURONIUM BROMIDE 50MG/5ML VIAL As Ordered ONE (09:31)
[2025-05-17] MEDS ORDERED: dexAMETHasone 4 MG/ML 1 ML VIAL As Ordered ONE (09:31)
[2025-05-17] MEDS ORDERED: dexmedeTOMIDine (4 MCG/ML) 200 MCG/50 ML BTL As Ordered ONE (09:32)
[2025-05-17] MEDS ORDERED: LACRILUBE (AKWA TEARS) OPHTH OINT 3.5 GM As Ordered ONE (09:39)
[2025-05-17] MEDS: HEPARIN SOD 5000 UNITS/ML 1 ML VIAL/SYRINGE SQ ONE (10:15)
[2025-05-17] MEDS: ceFAZolin SOD 2 GM IV ONCE IV ONE (10:28)
[2025-05-17] MEDS ORDERED: SUGAMMADEX SODIUM 200 MG/2 ML VIAL As Ordered ONE (11:24)
[2025-05-17] MEDS ORDERED: HYDROmorphone HCL 2 MG/ML 1 ML VIAL As Ordered ONE (11:25)
[2025-05-17] MEDS: GENTAMICIN SULF 80 MG/2 ML VIAL As Ordered ONE (12:32)
[2025-05-17] MEDS ORDERED: ONDANSETRON 4MG 2ML VIAL IV PRN ×2 (13:25→16:00)
[2025-05-17] MEDS ORDERED: HYDROMORPHONE HCL 0.5 MG/0.5 ML SYRINGE IV PRN (13:25)
[2025-05-17] MEDS ORDERED: ACETAMINOPHEN 325 MG TAB PO PRN (16:00)
[2025-05-17] MEDS ORDERED: MIRALAX *UNIT DOSE* 17 GM PACKET PO PRN (16:00)
[2025-05-17] MEDS: ceFAZolin SODIUM 2 GM in DEXTROSE 5% (D5W) ADV/MINI-BAG 50 ML IV SCH (17:28)
[2025-05-17] MEDS: DOCUSATE SODIUM 100 MG CAPSULE PO SCH (20:44)
[2025-05-18] MEDS: traMADol 50 MG TAB PO PRN (00:09)
[2025-05-18 00:31] VITALS: BP 105/68; TEMP 97.5; O2SAT 96
[2025-05-18 05:09] VITALS: BP 116/74; TEMP 98; O2SAT 96
[2025-05-18 06:34] VITALS: O2SAT 95
[2025-05-18] MEDS ORDERED: OXYC-517 PO (06:44)
[2025-05-18 10:00] VITALS: BP 104/68; TEMP 97.9
[2025-05-20] MEDS ORDERED: OXYC-1 PO ×2 (11:26→11:39)
[2025-05-20] MEDS ORDERED: PERCOCET PO (12:39)
== END 2025-05-18 10:50 | disposition home or self-care (01) ==
LOC: M SDC 06:55 → M RR INP 06:56 → M MS5PR 15:30
PROVIDERS: ADMIT Surgery; ATTEND Plastic Surgery Surgery of the Hand
DX: C50.312 Malignant neoplasm of lower-inner quadrant of left female breast (principal); N64.89 Other specified disorders of breast; Z91.040 Latex allergy status; Z91.041 Radiographic dye allergy status; Z91.048 Other nonmedicinal substance allergy status; Z87.891 Personal history of nicotine dependence; Z79.52 Long term (current) use of systemic steroids
CPT/HCPCS: 15777; 19303; 19357; 38525; 38900; 88307; 96374; 96376; A9520; C1789; J0665; J0666; J0688; J1100; J1171; J1580; J2250; J2405; J3010; Q4116

== ENCOUNTER → 2025-06-12 | Outpatient (REF) | payer BC ==
[~2025-06-12] MED LIST changes: +OXYC1TAB23 PO; +PERCOCET PO
[2025-06-12 18:04] LABS: BASO # 0.1 10^3/uL (0.0-0.2); BASO % 1.3 % (0.0-1.0); EOS # 0.3 10^3/uL (0.0-0.5); EOS % 4.3 % (0.0-3.0); LYMPH # 2.0 10^3/uL (1.5-5.0); LYMPH % 28.7 % (24.0-44.0); MONO # 0.6 10^3/uL (0.0-0.8); MONO % 8.0 % (2.0-8.0); NEUTROPHILS # 4.0 10^3/uL (1.5-8.5); NEUTROPHILS % 57.4 % (36.0-66.0); PLATELET COUNT, AUTOMATED 208 10^3/uL (150-450)
[2025-06-12 18:24] LABS: ALT/SGPT 18.0 U/L (7.0-40); AST/SGOT 22.0 U/L (<34); CALCIUM LEVEL 8.6 MG/DL (8.5-10.1); CARBON DIOXIDE LEVEL 29.0 MMOL/L (20-31); CHLORIDE LEVEL 106.0 MMOL/L (98-107); CREATININE FOR GFR 0.81 MG/DL (0.55-1.30); GLOMERULAR FILTRATION RATE 86.8 (>51); POTASSIUM SERUM 5.3 MMOL/L (3.5-5.1); SODIUM LEVEL 138.0 MMOL/L (136-145)
== END ==
LOC: M LABDRAWC 17:32
PROVIDERS: ATTEND Internal Medicine Medical Oncology
DX: C50.919 Malignant neoplasm of unspecified site of unspecified female breast (principal)

== ENCOUNTER → 2025-07-24 | Outpatient (CLI) | payer BC ==
[~2025-07-24] MED LIST changes: +LETR2.5T2 PO
== END ==
LOC: M WHC 13:46
PROVIDERS: ATTEND Internal Medicine Medical Oncology
DX: M81.0 Age-related osteoporosis without current pathological fracture (principal)